=== PATIENT | male | born 1935 | race Caucasian/White ===

== ENCOUNTER 2020-02-07 15:46 | Emergency (ER) | payer MEDICARE, BC ==
[2020-02-07 16:27] VITALS: BP 172/72; PULSE 72
--- NOTE | 2020-02-07 16:27 | EDM.PDOC ---
ED HPI GENERAL MEDICAL PROBLEM - General Chief Complaint: Genitourinary Problem Stated Complaint: CATHETER ISSUES Time Seen by Provider: 02/07/20 16:03 Source of Information: Reports: Patient, RN Notes Reviewed History Limitations: Reports: No Limitations - History of Present Illness INITIAL COMMENTS - FREE TEXT/NARRATIVE: Patient is an 84-year-old male who presents to the ED for issues with his Khanna catheter. He had a circumcision done by Dr. Alejandra yesterday at [facility] in [place], [place], and was discharged with the Khanna catheter. Patient states he feels quite uncomfortable with it, and feels like he has to pee all the time. He thinks that is leaking a little bit by the penis, and states that he can feel some sort of "spasms". When he has the urge to go to the bathroom. He is not noticed any clots within the catheter or the leg bag, and he notes that he emptied the bag this morning, but only has had a small amount of urine since then. He has been given pain medications for which she is taking every 4 hours, states his last dose was around noon. There is a small amount of blood- tinged urine within the bag itself. He states that the head of the penis is very sore, and any time his underwear rubs against it, he has a lot of discomfort. Denies any fevers or chills, cough shortness of breath, nausea/vomiting/diarrhea. Penis Pain Score (Numeric/FACES): 4 - Related Data Allergies Allergy/AdvReac Type Severity Reaction Status Date / Time ZULY Inhibitors Allergy Cannot Verified 02/07/20 16:36 Remember lisinopril Allergy Cannot Verified 02/07/20 16:36 Remember simvastatin Allergy Cannot Verified 02/07/20 16:36 Remember Past Medical History HEENT History: Reports: Hard of Hearing, Impaired Vision Cardiovascular History: Reports: High Cholesterol, Hypertension Musculoskeletal History: Reports: Arthritis Endocrine/Metabolic History: Reports: Diabetes, Type II, Hypothyroidism Oncologic (Cancer) History: Reports: Bladder - Past Surgical History HEENT Surgical History: Reports: Cataract Surgery Male Surgical History: Reports: Circumcision (02/06/2020) Musculoskeletal Surgical History: Reports: Knee Replacement Other Musculoskeletal Surgeries/Procedures:: [facility] ED ROS GENERAL - Review of Systems Review Of Systems: Comprehensive ROS is negative, except as noted in HPI. ED EXAM, RENAL/ - Physical Exam Exam: See Below Exam Limited By: No Limitations General Appearance: Alert, WD/WN, No Apparent Distress Respiratory/Chest: No Respiratory Distress, Lungs Clear, Normal Breath Sounds, No Accessory Muscle Use, Chest Non-Tender Cardiovascular: Normal Peripheral Pulses, Regular Rate, Rhythm, No Murmur (Male) Exam: No Hernia, Circumcised, Other (penile tenderness on the head of the penis with light touch; catheter in place, no obvious drainage appreciated). No: Penile Lesions, Scrotum Tenderness (L), Scrotum Tenderness (R), Testicular Tenderness (L), Testicular Tenderness (R), Urethral Discharge Neurological: Alert, Oriented, Normal Cognition, No Motor/Sensory Deficits Psychiatric: Normal Affect, Normal Mood Skin Exam: Warm, Dry, Intact, Normal Color, No Rash Course - Vital Signs Last Recorded V/S: Last Vital Signs Temp 97.2 F 02/07/20 16:24 Pulse 72 02/07/20 16:24 Resp 20 02/07/20 16:24 BP 172/72 H 02/07/20 16:24 Pulse Ox 96 02/07/20 16:24 - Re-Assessments/Exams Free Text/Narrative Re-Assessment/Exam: 02/07/20 16:27 Patient presents to the ED for issues with his Khanna catheter. I will have nursing staff troubleshoot the catheter to make sure that can correct placement and irrigate it at this time. I do believe the patient is suffering from bladder spasms from what he is characterizing. Unsure of his medication list at this time, nursing was trying to call his pharmacy to get this. I am not sure if he is on any bladders antispasmodics. 02/07/20 16:53 Awaiting med list from his pharmacy, they state they are going to fax it for review. We will try to wrap the patient's penis with soft gauze material so it may take away from some of the irritation he is experiencing. Nurse states that the catheter was draining appropriately, she did get a little bit of urine back with it, but not a whole lot. Patient states that he has been trying to stay hydrated, but did not like the sensation of the leaking, so is not probably been drinking as much as he should. This might be the reason for the decreased urine output. Departure - Departure Time of Disposition: 16:54 Disposition: Home, Self-Care 01 Condition: Good Clinical Impression: Bladder spasms, Aftercare for circumcision Khanna catheter problem Qualifiers: Encounter type: initial encounter Qualified Code(s): T83.9XXA - Unspecified complication of genitourinary prosthetic device, implant and graft, initial encounter - Discharge Information *PRESCRIPTION DRUG MONITORING PROGRAM REVIEWED*: No *COPY OF PRESCRIPTION DRUG MONITORING REPORT IN PATIENT MICHELLE: No Instructions: Indwelling Urinary Catheter Care, Adult Referrals: Yimi Jimenes MD [Primary Care Provider] - Forms: ED Department Discharge Additional Instructions: You were evaluated in the ER today for your Khanna catheter issue. The nurse did troubleshoot your Khanna catheter, and was found to be in appropriate placement and is draining appropriately. Your penis was wrapped with a soft gauze to help provide a barrier to relieve some of the irritation you are experiencing. Please monitor the area for any signs of infection, like redness/swelling/pus like drainage. It is likely that you are experiencing some bladder spasms causing some mild leakage around the catheter and through the tip of the penis. If this bothers you, you may want to try wearing a depends to help absorb the leakage. Recommend you follow-up with your urologist at your next appointment for further evaluation and management. Please continue to take your pain medication as prescribed for pain relief, this is likely going to be tender and sore for the next few days. Highly recommend you take a stool softener like MiraLAX or Dulcolax to soften your bowels, as the pain medications can cause constipation. Please also try to increase your oral fluid intake. Please return to the ER at any time however if your symptoms change or worsen. Sepsis Event Note (ED) - Focused Exam Vital Signs: Vital Signs Temp Pulse Resp BP Pulse Ox 02/07/20 16:24 97.2 F 72 20 172/72 H 96
== END 2020-02-07 17:35 | disposition home or self-care (01) ==
LOC: JD.ED 15:46
DX: T83.091A Other mechanical complication of indwelling urethral catheter, initial encounter (principal); Z48.816 Encounter for surgical aftercare following surgery on the genitourinary system; I10 Essential (primary) hypertension; E11.9 Type 2 diabetes mellitus without complications; N32.89 Other specified disorders of bladder; Z88.8 Allergy status to other drugs, medicaments and biological substances
CPT/HCPCS: 99283

== ENCOUNTER 2020-03-06 22:52 | Emergency (ER) | payer MEDICARE, BC ==
[2020-03-06 23:06] VITALS: BP 123/67; PULSE 60
--- NOTE | 2020-03-07 00:25 | EDM.PDOC ---
ED HPI GENERAL MEDICAL PROBLEM - General Chief Complaint: Diabetic Complaint Stated Complaint: SKYLAR AMB Time Seen by Provider: 03/07/20 00:01 Source of Information: Reports: Patient, RN Notes Reviewed History Limitations: Reports: No Limitations - History of Present Illness INITIAL COMMENTS - FREE TEXT/NARRATIVE: Mr. Holly is a very pleasant 84-year-old gentleman who is now brought to the ED by EMS for hypoglycemia. He states that he took his usual 60 units of Lantus and 42 units of NovoLog around 17:30 this evening, then ate a few peaches for dinner, but nothing substantial. He was found by a nurse at [facility] to be hypoglycemic. EMS was called. They found his blood glucose to be 40. They had him drink some juice, but a subsequent blood glucose was 28, and a subsequent 1 was even lower, therefore he was given 1 amp of IV D50. A subsequent blood glucose was 157. In the ED, the patient is found to be hemodynamically stable, afebrile, saturating 98% on room air. An Accu-Chek at 23:11 was 67. The patient states that he has had an increased frequency of hypoglycemia over an undetermined amount of time. He states that he cannot predict when his blood glucose will go low. He states that he saw his PCP about 3 weeks ago, and that they discussed this, but that no changes to the patient's insulin were made. The patient states that he has had a poor appetite for about a month, and reports an approximately 40 pound weight loss over the past 2 months. No recent fever, cough, or dyspnea. The patient states that he was tested for the SARS-CoV-2 virus today, but has not yet been given the results. Other than the above symptoms, the patient denies having a recent fever, chills, sore throat, ear pain, nasal or sinus congestion, cough, dyspnea, chest pain, palpitations, nausea, vomiting, constipation, diarrhea, abdominal pain, urinary symptoms, recent bloody bowel movements or black bowel movements, recent joint aches, headaches, or rashes. The patient's PCP is Dr. Yimi Jimenes. His Drafter Detail is Dr. Ramesh Stoddard. His Urologist is Dr. Jovani Alejandra. Treatments ASSESSMENT SERVICES MANAGER: Reports: Food, Other (see below) Other Treatments ASSESSMENT SERVICES MANAGER: dextrose 50% - Related Data Allergies Allergy/AdvReac Type Severity Reaction Status Date / Time ZULY Inhibitors Allergy Cannot Verified 02/07/20 16:36 Remember lisinopril Allergy Cannot Verified 02/07/20 16:36 Remember simvastatin Allergy Cannot Verified 02/07/20 16:36 Remember Home Meds: Home Meds Aspirin 81 mg PO DAILY 02/07/20 [History] Colestipol [Colestipol HCl] 1 gm PO BID 02/07/20 [History] Empagliflozin [Jardiance] 25 mg PO DAILY 02/07/20 [History] Finasteride [Proscar] 5 mg PO DAILY 02/07/20 [History] Fluticasone Propionate [Flovent] 1 puff IH BID 02/07/20 [History] Furosemide [Lasix] 20 mg PO TID 02/07/20 [History] Glimepiride 4 mg PO DAILY 02/07/20 [History] Levothyroxine [Synthroid] 50 mcg PO ACBREAKFAST 02/07/20 [History] Metoprolol Tartrate [Lopressor] 50 mg PO Q12HR 02/07/20 [History] Niacin [Niaspan] 500 mg PO DAILY 02/07/20 [History] Omeprazole 20 mg PO DAILY 02/07/20 [History] Potassium Chloride 10 meq PO DAILY 02/07/20 [History] Tamsulosin HCl 0.8 mg PO DAILY 02/07/20 [History] Triamcinolone Acetonide [Triamcinolone Acetonide 0.5%] 0.5 percent TOP BID 02/07/20 [History] Valsartan 320 mg PO DAILY 02/07/20 [History] amLODIPine [Norvasc] 5 mg PO DAILY 02/07/20 [History] metFORMIN [Glucophage] 500 mg PO BIDMEALS 02/07/20 [History] Past Medical History HEENT History: Reports: Hard of Hearing, Impaired Vision Cardiovascular History: Reports: High Cholesterol, Hypertension Gastrointestinal History: Reports: GERD Genitourinary History: Reports: BPH, Chronic Renal Insuffiency, Retention, Urinary (chronic indwelling Khanna) Musculoskeletal History: Reports: Arthritis Endocrine/Metabolic History: Reports: Diabetes, Type II, Hypothyroidism, Obesity/BMI 30+ Oncologic (Cancer) History: Reports: Bladder - Past Surgical History HEENT Surgical History: Reports: Cataract Surgery Male Surgical History: Reports: Circumcision (02/06/2020), TURBT-Transurethral Resection of Bladder Tumor Musculoskeletal Surgical History: Reports: Carpal Tunnel (right), Knee Replacement (right) Social & Family History - Tobacco Use Smoking Status *Q: Never Smoker - Caffeine Use Caffeine Use: Reports: Soda, Tea - Alcohol Use Alcohol Use History: No - Recreational Drug Use Recreational Drug Use: No - Living Situation & Occupation Living situation: Reports: Single, Alone, Assisted Living ([facility]) Occupation: Retired ED ROS GENERAL - Review of Systems Review Of Systems: Comprehensive ROS is negative, except as noted in HPI. ED EXAM GENERAL NO PERIP PULSE - Physical Exam Exam: See Below Exam Limited By: No Limitations General Appearance: Alert, WD/WN, No Apparent Distress Eye Exam: Bilateral Eye: EOMI, Normal Inspection Ears: Normal External Exam, Hearing Grossly Normal Nose: Normal Inspection Throat/Mouth: Normal Inspection, Normal Lips, Normal Voice, No Airway Compromise Head: Atraumatic, Normocephalic Neck: Normal Inspection, Full Range of Motion Respiratory/Chest: No Respiratory Distress, Lungs Clear, Normal Breath Sounds, No Accessory Muscle Use Cardiovascular: Normal Peripheral Pulses, Regular Rate, Rhythm, No Gallop, No JVD, No Murmur, No Rub GI/Abdominal: Normal Bowel Sounds, Soft, Non-Tender, No Organomegaly, No Distention, No Abnormal Bruit, No Mass Back Exam: Normal Inspection, Full Range of Motion, NT Extremities: Normal Inspection, Normal Range of Motion, Normal Capillary Refill, Other (Bilateral leg hyperpigmentation consistent with chronic venous stasis changes, with 1+ pretibial edema bilaterally) Neurological: Alert, Oriented, Normal Cognition, No Motor/Sensory Deficits Psychiatric: Normal Affect Skin Exam: Warm, Dry, Intact, Normal Color, No Rash EKG INTERPRETATION EKG Date: 03/07/20 Time: 00:29 Rhythm: NSR Rate (Beats/Min): 62 [place]: Normal P-Wave: Present (1st degree AVB) QRS: Other (Late transition) ST-T: Normal QT: Normal Comparison: NA - No Prior EKG Course - Vital Signs Last Recorded V/S: Last Vital Signs Temp 36.1 C 03/06/20 22:56 Pulse 60 03/06/20 22:56 Resp 18 03/06/20 22:56 BP 123/67 03/06/20 22:56 Pulse Ox 98 03/06/20 22:56 - Orders/Labs/Meds Orders: Active Orders 24 hr Category Date Time Status EKG Documentation Completion [RC] STAT Care 03/07/20 00:21 Active Chest 1V Frontal [CR] Stat Exams 03/07/20 00:21 Taken CULTURE URINE [RM] Stat Lab 03/07/20 00:40 Results Labs: Laboratory Tests 03/06/20 03/07/20 03/07/20 Range/Units 23:11 00:59 00:59 WBC 7.04 (4.23-9.07) K/mm3 RBC 3.68 L (4.63-6.08) M/mm3 Hgb 10.7 L (13.7-17.5) gm/dl Hct 34.4 L (40.1-51.0) % MCV 93.5 H (79.0-92.2) fl MCH 29.1 (25.7-32.2) pg MCHC 31.1 L (32.2-35.5) g/dl RDW Std Deviation 43.4 (35.1-43.9) fL Plt Count 180 (163-337) K/mm3 MPV 9.9 (9.4-12.3) fl Neutrophils % (Manual) 68 H (40-60) % Band Neutrophils % 1 (0-10) % Lymphocytes % (Manual) 22 (20-40) % Atypical Lymphs % 0 % Monocytes % (Manual) 5 (2-10) % Eosinophils % (Manual) 2 (0.8-7.0) % Basophils % (Manual) 2 H (0.2-1.2) Platelet Estimate Adequate Plt Morphology Comment Normal Hypochromasia 1+ slight RBC Morph Comment Not Reportable Sodium 141 (136-145) mEq/L Potassium 3.1 L (3.5-5.1) mEq/L Chloride 102 (98-107) mEq/L Carbon Dioxide 27 (21-32) mEq/L Anion Gap 15.1 H (5-15) BUN 13 (7-18) mg/dL Creatinine 1.8 H (0.7-1.3) mg/dL Est Cr Clr Drug Dosing 28.06 mL/min Estimated GFR (MDRD) 36 (>60) mL/min BUN/Creatinine Ratio 7.2 L (14-18) Glucose 49 L (83-115) mg/dL POC Glucose 67 L (83-110) mg/dL Calcium 8.6 (8.5-10.1) mg/dL Magnesium 1.5 L (1.8-2.4) mg/dl Total Bilirubin 0.5 (0.2-1.0) mg/dL AST 17 (15-37) U/L ALT 17 (16-63) U/L Alkaline Phosphatase 94 (46-116) U/L Troponin I < 0.017 (0.00-0.056) ng/mL Total Protein 7.6 (6.4-8.2) g/dl Albumin 3.0 L (3.4-5.0) g/dl Globulin 4.6 gm/dL Albumin/Globulin Ratio 0.7 L (1-2) 03/07/20 03/07/20 03/07/20 Range/Units 01:55 03:07 04:10 WBC (4.23-9.07) K/mm3 RBC (4.63-6.08) M/mm3 Hgb (13.7-17.5) gm/dl Hct (40.1-51.0) % MCV (79.0-92.2) fl MCH (25.7-32.2) pg MCHC (32.2-35.5) g/dl RDW Std Deviation (35.1-43.9) fL Plt Count (163-337) K/mm3 MPV (9.4-12.3) fl Neutrophils % (Manual) (40-60) % Band Neutrophils % (0-10) % Lymphocytes % (Manual) (20-40) % Atypical Lymphs % % Monocytes % (Manual) (2-10) % Eosinophils % (Manual) (0.8-7.0) % Basophils % (Manual) (0.2-1.2) Platelet Estimate Plt Morphology Comment Hypochromasia RBC Morph Comment Sodium (136-145) mEq/L Potassium (3.5-5.1) mEq/L Chloride (98-107) mEq/L Carbon Dioxide (21-32) mEq/L Anion Gap (5-15) BUN (7-18) mg/dL Creatinine (0.7-1.3) mg/dL Est Cr Clr Drug Dosing mL/min Estimated GFR (MDRD) (>60) mL/min BUN/Creatinine Ratio (14-18) Glucose (83-115) mg/dL POC Glucose 78 L 70 L 59 L (83-110) mg/dL Calcium (8.5-10.1) mg/dL Magnesium (1.8-2.4) mg/dl Total Bilirubin (0.2-1.0) mg/dL AST (15-37) U/L ALT (16-63) U/L Alkaline Phosphatase (46-116) U/L Troponin I (0.00-0.056) ng/mL Total Protein (6.4-8.2) g/dl Albumin (3.4-5.0) g/dl Globulin gm/dL Albumin/Globulin Ratio (1-2) 03/07/20 03/07/20 03/07/20 Range/Units 05:05 06:20 07:29 WBC (4.23-9.07) K/mm3 RBC (4.63-6.08) M/mm3 Hgb (13.7-17.5) gm/dl Hct (40.1-51.0) % MCV (79.0-92.2) fl MCH (25.7-32.2) pg MCHC (32.2-35.5) g/dl RDW Std Deviation (35.1-43.9) fL Plt Count (163-337) K/mm3 MPV (9.4-12.3) fl Neutrophils % (Manual) (40-60) % Band Neutrophils % (0-10) % Lymphocytes % (Manual) (20-40) % Atypical Lymphs % % Monocytes % (Manual) (2-10) % Eosinophils % (Manual) (0.8-7.0) % Basophils % (Manual) (0.2-1.2) Platelet Estimate Plt Morphology Comment Hypochromasia RBC Morph Comment Sodium (136-145) mEq/L Potassium (3.5-5.1) mEq/L Chloride (98-107) mEq/L Carbon Dioxide (21-32) mEq/L Anion Gap (5-15) BUN (7-18) mg/dL Creatinine (0.7-1.3) mg/dL Est Cr Clr Drug Dosing mL/min Estimated GFR (MDRD) (>60) mL/min BUN/Creatinine Ratio (14-18) Glucose (83-115) mg/dL POC Glucose 52 L 80 L 62 L (83-110) mg/dL Calcium (8.5-10.1) mg/dL Magnesium (1.8-2.4) mg/dl Total Bilirubin (0.2-1.0) mg/dL AST (15-37) U/L ALT (16-63) U/L Alkaline Phosphatase (46-116) U/L Troponin I (0.00-0.056) ng/mL Total Protein (6.4-8.2) g/dl Albumin (3.4-5.0) g/dl Globulin gm/dL Albumin/Globulin Ratio (1-2) 03/07/20 03/07/20 03/07/20 Range/Units 08:38 09:41 10:25 WBC (4.23-9.07) K/mm3 RBC (4.63-6.08) M/mm3 Hgb (13.7-17.5) gm/dl Hct (40.1-51.0) % MCV (79.0-92.2) fl MCH (25.7-32.2) pg MCHC (32.2-35.5) g/dl RDW Std Deviation (35.1-43.9) fL Plt Count (163-337) K/mm3 MPV (9.4-12.3) fl Neutrophils % (Manual) (40-60) % Band Neutrophils % (0-10) % Lymphocytes % (Manual) (20-40) % Atypical Lymphs % % Monocytes % (Manual) (2-10) % Eosinophils % (Manual) (0.8-7.0) % Basophils % (Manual) (0.2-1.2) Platelet Estimate Plt Morphology Comment Hypochromasia RBC Morph Comment Sodium (136-145) mEq/L Potassium (3.5-5.1) mEq/L Chloride (98-107) mEq/L Carbon Dioxide (21-32) mEq/L Anion Gap (5-15) BUN (7-18) mg/dL Creatinine (0.7-1.3) mg/dL Est Cr Clr Drug Dosing mL/min Estimated GFR (MDRD) (>60) mL/min BUN/Creatinine Ratio (14-18) Glucose (83-115) mg/dL POC Glucose 88 85 145 H (83-110) mg/dL Calcium (8.5-10.1) mg/dL Magnesium (1.8-2.4) mg/dl Total Bilirubin (0.2-1.0) mg/dL AST (15-37) U/L ALT (16-63) U/L Alkaline Phosphatase (46-116) U/L Troponin I (0.00-0.056) ng/mL Total Protein (6.4-8.2) g/dl Albumin (3.4-5.0) g/dl Globulin gm/dL Albumin/Globulin Ratio (1-2) Meds: Medications Discontinued Medications Generic Name Dose Route Start Last Admin Trade Name Freq PRN Reason Stop Dose Admin Dextrose/Water 25 ml 03/07/20 05:07 03/07/20 05:11 Dextrose 50% In Water IVPUSH 03/07/20 05:08 25 ml ONETIME STA Administration Dextrose/Water Confirm 03/07/20 05:07 03/07/20 05:11 Dextrose 50% In Water Administered 03/07/20 05:08 Not Given Dose 50 ml .ROUTE .STK-MED ONE Magnesium Sulfate 2 gm in 50 mls @ 25 mls/hr 03/07/20 03:00 03/07/20 03:09 Magnesium Sulfate In Water Premix IV 03/07/20 04:59 25 mls/hr ONETIME ONE Administration Magnesium Sulfate 2 gm 03/07/20 01:57 03/07/20 03:10 Magnesium Sulfate In Water Premix IV 03/07/20 01:58 Not Given ONETIME STA Potassium Chloride 40 meq 03/07/20 04:54 03/07/20 05:11 Klor-Con M20 PO 03/07/20 04:55 40 meq ONETIME ONE Administration - Re-Assessments/Exams Free Text/Narrative Re-Assessment/Exam: 03/07/20 00:20 As above, the patient was found to be hypoglycemic, likely because of taking an excessive amount of insulin for the small amount that he ate for dinner. Here in the ED, his blood glucose was found to be 67, therefore he was given a meal. So far, he is eaten half of a turkey sandwich, most of a cup of peaches, and all of an apple juice cup. I encouraged him to finish his sandwich. We will keep an eye on his blood glucose, but in the meantime, I have ordered a work-up that includes blood work, a portable chest x-ray, and an ECG. Because the patient has a chronic indwelling Khanna, I have also ordered a urine culture, however, I have not ordered a urinalysis, as it would be uninterpretable due to the chronicity of his Khanna. 03/07/20 01:12 Portable chest radiograph appears to be grossly normal. The cardiac silhouette is within normal limits. No pulmonary vascular congestion. No pleural effusions seen on this AP view. No focal infiltrate. No pneumothorax. Formal read per the Radiologist pending. 03/07/20 02:00 The patient's CBC is remarkable for a H/H slightly depressed at 10.7/34.4, with the remainder of her CBC being unremarkable. His CMP is remarkable for potassium depressed at 3.1, and anion gap slightly elevated at 15.1, but with a bicarbonate normal at 27, and a Cr elevated at 1.8 with a BUN normal at 13, with the remainder of her CMP being unremarkable. His magnesium level is depressed at 1.5. His troponin is undetectably low. Most recent Accu-Chek is 78. Based on the above, I have ordered a 2 g Mg-rider. After it has finished infusing, the patient will be given oral KCl. 03/07/20 04:53 The patient's blood glucose was 59 at 04:10. He was given apple juice. His Mg-rider has infusing. I will order 40 mEq oral KCl. 03/07/20 05:08 Notified by Suly VALERO that the patient's blood glucose is down to 52. He is not interested in eating anything more. I for ordered a 1/2 Amp of D50. 03/07/20 09:50 The most recent Accu-Chek is 85. 03/07/20 10:59 The patient's Accu-Chek at 10:45 was 145. His blood glucoses appear to have stabilized. I will discharge the patient home. Departure - Departure Time of Disposition: 11:00 Disposition: Home, Self-Care 01 Condition: Good Clinical Impression: Insulin reaction, Hypokalemia, Hypomagnesemia, Chronic renal insufficiency - Discharge Information *PRESCRIPTION DRUG MONITORING PROGRAM REVIEWED*: Not Applicable *COPY OF PRESCRIPTION DRUG MONITORING REPORT IN PATIENT MICHELLE: Not Applicable Referrals: Yimi Jimenes MD [Physician] - Jovani Alejandra MD [Ordering Only Provider] - Ramesh Stoddard MD [Ordering Only Provider] - Forms: ED Department Discharge Additional Instructions: You were seen in the emergency room after suffering a low blood sugar. Work-up in the ER included blood work, a chest x-ray, and an ECG. Your work-up found your magnesium and potassium levels to be mildly depressed. You were given IV magnesium and oral replacement potassium in the ER. Your kidney function was found to be modestly impaired. The remainder of your work-up was unremarkable. You required supplemental sugar in the ER, but, over time, your blood sugars stabilized on their own. We recommend that you follow-up with your PCP, Dr. Yimi Jimenes, to discuss the option of reducing the amount of insulin that you take on a regular basis. In time, it is very important that you eat a full meal if you are taking a full regimen of insulin. If any other problems, please do not hesitate to return to the ER. Sepsis Event Note (ED) - Evaluation Sepsis Screening Result: No Definite Risk - My Orders Last 24 Hours: My Active Orders 03/07/20 00:21 EKG Documentation Completion [RC] STAT Chest 1V Frontal [CR] Stat 03/07/20 00:40 CULTURE URINE [RM] Stat - Assessment/Plan Last 24 Hours: My Active Orders 03/07/20 00:21 EKG Documentation Completion [RC] STAT Chest 1V Frontal [CR] Stat 03/07/20 00:40 CULTURE URINE [RM] Stat
[2020-03-07] MEDS: Magnesium Sulfate/Water 2 GM/50 ML Premix Bag IV STA ×2 (02:56→03:10)
[2020-03-07] MEDS ORDERED: Magnesium Sulfate/Water 2 GM/50 ML BAG IV ONE (03:00)
[2020-03-07] MEDS ORDERED: Potassium Chloride 20 MEQ Tab.ER PO ONE (04:54)
[2020-03-07] MEDS ORDERED: 50% Dextrose in Water 50 ML Syringe IVPUSH STA (05:07)
[2020-03-07] MEDS ORDERED: 50% Dextrose in Water 50 ML Syringe ONE (05:07)
--- NOTE | 2020-03-30 15:24 | CR ---
PROCEDURE INFORMATION: Exam: XR Chest, 1 View Exam date and time: 03/08/2020 4:39 PM Age: 84 years old Clinical indication: Fever; Patient HX: Under covid-19 precautions. TECHNIQUE: Imaging protocol: XR of the chest Views: 1 view. COMPARISON: CR Chest 1V Frontal 03/07/2020 12:23 AM FINDINGS: Lungs: No suspicious pulmonary nodules or areas of lung consolidation. Pleural space: Costophrenic angles are sharp. No pneumothorax. Heart/Mediastinum: Unremarkable. No cardiomegaly. 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 There is ageappropriate spondylosis of the spine. IMPRESSION: 1. No active disease of the chest. 2. No significant interval change when compared to the CR Chest 1V Frontal 03/07/2020 12:23 AM. Thank you for allowing us to participate in the care of your patient. Dictated and Authenticated by: Jordan Schilling MD 03/30/2020 4:08 PM Central Time ([place] & [place]) JIM
== END 2020-03-07 12:40 | disposition home or self-care (01) ==
LOC: JD.ED 22:52
DX: E11.649 Type 2 diabetes mellitus with hypoglycemia without coma (principal); E87.6 Hypokalemia; E83.42 Hypomagnesemia; I12.9 Hypertensive chronic kidney disease with stage 1 through stage 4 chronic kidney disease, or unspecified chronic kidney disease; N18.9 Chronic kidney disease, unspecified; E11.22 Type 2 diabetes mellitus with diabetic chronic kidney disease; E03.9 Hypothyroidism, unspecified; M19.90 Unspecified osteoarthritis, unspecified site; N40.0 Benign prostatic hyperplasia without lower urinary tract symptoms; E66.9 Obesity, unspecified; Z68.41 Body mass index [BMI] 40.0-44.9, adult; Z79.82 Long term (current) use of aspirin; Z79.84 Long term (current) use of oral hypoglycemic drugs; Z79.899 Other long term (current) drug therapy; Z88.8 Allergy status to other drugs, medicaments and biological substances; T38.3X5A Adverse effect of insulin and oral hypoglycemic [antidiabetic] drugs, initial encounter
CPT/HCPCS: 36415; 71045; 80053; 82962; 83735; 84484; 85007; 85027; 87086; 87088; 87186; 93005; 96365; 96375; 99285; A9270; J3475; 93010; 99284

== ENCOUNTER 2020-03-08 16:35 | Inpatient (IN) | payer MEDICARE, BC ==
[2020-03-08] MEDS ORDERED: Sodium Chloride 0.9% 10 ML Syringe FLUSH PRN (16:40)
[2020-03-08] MEDS ORDERED: Acetaminophen 325 MG Tab PO ONE (16:49)
[2020-03-08] MEDS ORDERED: Ondansetron 4 MG/2 ML SDV IVPUSH ONE (16:57)
--- NOTE | 2020-03-08 17:10 | EDM.PDOC ---
ED HPI GENERAL MEDICAL PROBLEM - General Chief Complaint: General Stated Complaint: [facility] Time Seen by Provider: 03/08/20 16:38 Source of Information: Reports: Patient History Limitations: Reports: No Limitations - History of Present Illness INITIAL COMMENTS - FREE TEXT/NARRATIVE: Patient is an 84-year-old male presenting to the emergency department via [facility] after sliding out of his recliner at home. He has been feeling increasingly weak today. He was found to have a fever of 102 upon EMS arrival. The verbalizes oxygen saturation was 90% on room air, therefore he was placed on a simple mask. Patient states that he has been more weak today but he did not "think that it was that bad ". He did have an episode of vomiting on the way to the emergency department and patient does state that he feels nauseous at this time. He denies any cough or shortness of breath. Denies any abdominal pain. He has a chronic indwelling Tang and states that he has been having burning in that area for the last few days. He denies any chest pain. Yesterday after hypoglycemic episodes. Blood work at that time was found to be overall normal. A urine culture was sent which on review has is growing out greater than 100,000 colony-forming units of gram-positive cocci. - Related Data Allergies Allergy/AdvReac Type Severity Reaction Status Date / Time ZULY Inhibitors Allergy Cannot Verified 03/08/20 16:48 Remember lisinopril Allergy Cannot Verified 03/08/20 16:48 Remember simvastatin Allergy Cannot Verified 03/08/20 16:48 Remember Home Meds: Home Meds Aspirin 81 mg PO DAILY 02/07/20 [History] Colestipol [Colestipol HCl] 1 gm PO BID 02/07/20 [History] Empagliflozin [Jardiance] 25 mg PO DAILY 02/07/20 [History] Finasteride [Proscar] 5 mg PO DAILY 02/07/20 [History] Furosemide [Lasix] 20 mg PO TID 02/07/20 [History] Glimepiride 4 mg PO DAILY 02/07/20 [History] Levothyroxine [Synthroid] 50 mcg PO ACBREAKFAST 02/07/20 [History] Metoprolol Tartrate [Lopressor] 50 mg PO BID 02/07/20 [History] Omeprazole 20 mg PO DAILY 02/07/20 [History] Potassium Chloride 10 meq PO DAILY 02/07/20 [History] Tamsulosin HCl 0.8 mg PO DAILY 02/07/20 [History] Triamcinolone Acetonide [Triamcinolone Acetonide 0.5%] 0.5 percent TOP BID 02/07/20 [History] Valsartan 320 mg PO DAILY 02/07/20 [History] amLODIPine [Norvasc] 5 mg PO DAILY 02/07/20 [History] metFORMIN [Glucophage] 500 mg PO BIDMEALS 02/07/20 [History] Cholecalciferol (Vitamin D3) [Vitamin D3] 1,000 unit PO DAILY 03/08/20 [History] Insulin Aspart [NovoLOG] 40 - 50 unit SQ BID 03/08/20 [History] Insulin Glarg,Human.Rec.Analog [Lantus] 40 units SQ BID 03/08/20 [History] Oxybutynin Chloride [Ditropan Xl] 10 mg PO DAILY 03/08/20 [History] Past Medical History HEENT History: Reports: Hard of Hearing, Impaired Vision Cardiovascular History: Reports: High Cholesterol, Hypertension Respiratory History: Reports: None Gastrointestinal History: Reports: GERD Genitourinary History: Reports: BPH, Chronic Renal Insuffiency, Retention, Urinary (chronic indwelling Tang) Musculoskeletal History: Reports: Arthritis Endocrine/Metabolic History: Reports: Diabetes, Type II, Hypothyroidism, Obesity/BMI 30+ Oncologic (Cancer) History: Reports: Bladder - Past Surgical History HEENT Surgical History: Reports: Cataract Surgery Male Surgical History: Reports: Circumcision (02/06/2020), TURBT-Transurethral Resection of Bladder Tumor Musculoskeletal Surgical History: Reports: Carpal Tunnel (right), Knee Replacement (right) Social & Family History - Tobacco Use Tobacco Use Status *Q: Never Tobacco User - Caffeine Use Caffeine Use: Reports: Tea - Recreational Drug Use Recreational Drug Use: No - Living Situation & Occupation Living situation: Reports: Single, Alone, Assisted Living ([facility]) Occupation: Retired ED ROS GENERAL - Review of Systems Review Of Systems: See Below Constitutional: Reports: Fever, Weakness, Fatigue, Decreased Appetite HEENT: Reports: No Symptoms Respiratory: Reports: No Symptoms. Denies: Shortness of Breath, Cough Cardiovascular: Reports: No Symptoms Endocrine: Reports: No Symptoms GI/Abdominal: Reports: Nausea, Vomiting. Denies: Abdominal Pain : Reports: Dysuria, Other (indwelling tang) Musculoskeletal: Reports: No Symptoms Skin: Reports: No Symptoms Neurological: Reports: No Symptoms Psychiatric: Reports: No Symptoms Hematologic/Lymphatic: Reports: No Symptoms Immunologic: Reports: No Symptoms ED EXAM, GENERAL - Physical Exam Exam: See Below Exam Limited By: No Limitations General Appearance: Alert, WD/WN, No Apparent Distress Respiratory/Chest: No Respiratory Distress, Lungs Clear, Normal Breath Sounds, No Accessory Muscle Use, Chest Non-Tender Cardiovascular: Normal Peripheral Pulses, Regular Rate, Rhythm, No Edema, No Gallop, No JVD, No Murmur, No Rub GI/Abdominal: Normal Bowel Sounds, Soft, Non-Tender, No Organomegaly, No Distention, No Abnormal Bruit, No Mass Neurological: Alert, Oriented, CN II-XII Intact, Normal Cognition, Normal Gait, Normal Reflexes, No Motor/Sensory Deficits Psychiatric: Normal Affect, Normal Mood Skin Exam: Warm, Dry, Intact, Normal Color, No Rash Course - Vital Signs Last Recorded V/S: Last Vital Signs Temp 97.9 F 03/12/20 09:17 Pulse 75 03/12/20 09:17 Resp 16 03/12/20 08:18 BP 143/65 H 03/12/20 09:17 Pulse Ox 94 L 03/12/20 09:17 - Orders/Labs/Meds Orders: Medication Orders Acetaminophen (Tylenol) 650 mg PO Q4H PRN PRN Reason: Fever Last Admin: 03/11/20 05:06 Dose: 650 mg Documented by: [id number] Dextrose/Water (Dextrose 50% In Water) 50 ml IVPUSH ASDIRECTED PRN PRN Reason: Hypoglycemia Finasteride (Proscar) 5 mg PO DAILY [facility] Last Admin: 03/12/20 09:09 Dose: 5 mg Documented by: Admin: 03/11/20 08:47 Dose: 5 mg Documented by: Admin: 03/10/20 10:12 Dose: 5 mg Documented by: JAMES Furosemide (Lasix) 20 mg PO TID [facility] Last Admin: 03/12/20 09:09 Dose: 20 mg Documented by: Admin: 03/11/20 21:47 Dose: 20 mg Documented by: Admin: 03/11/20 15:44 Dose: 20 mg Documented by: Admin: 03/11/20 08:47 Dose: 20 mg Documented by: Admin: 03/10/20 21:51 Dose: 20 mg Documented by: Admin: 03/10/20 14:48 Dose: 20 mg Documented by: Admin: 03/10/20 10:12 Dose: 20 mg Documented by: JAMES Potassium Chloride 10 meq/ (Premix) 100 mls @ 100 mls/hr IV Q1H [facility] Stop: 03/12/20 15:14 Last Admin: 03/12/20 13:39 Dose: 100 mls/hr Documented by: Infusion: 03/12/20 13:24 Dose: 100 mls/hr Documented by: Admin: 03/12/20 12:24 Dose: 100 mls/hr Documented by: JAMES Penicillin G Potassium 3 (millunits/ Sodium Chloride) 100 mls @ 66.667 mls/hr IV Q4H [facility] Last Admin: 03/12/20 12:24 Dose: 66.667 mls/hr Documented by: JAMES Magnesium Sulfate (Magnesium Sulfate In Water Premix) 2 gm in 50 mls @ 25 mls/hr IV ONETIME ONE Stop: 03/12/20 15:40 Insulin Human Lispro (Humalog) 0 unit SUBCUT QIDACANDBED [facility]; Protocol Last Admin: 03/12/20 12:23 Dose: 3 unit Documented by: Admin: 03/12/20 09:11 Dose: 1 unit Documented by: Admin: 03/11/20 21:37 Dose: 2 unit Documented by: Admin: 03/11/20 17:06 Dose: 2 unit Documented by: Admin: 03/11/20 11:48 Dose: 4 unit Documented by: Admin: 03/11/20 08:29 Dose: 1 unit Documented by: Admin: 03/10/20 21:56 Dose: 2 unit Documented by: Admin: 03/10/20 17:14 Dose: 1 unit Documented by: Admin: 03/10/20 12:06 Dose: 1 unit Documented by: Admin: 03/10/20 06:31 Dose: Not Given Documented by: Admin: 03/09/20 22:56 Dose: 1 unit Documented by: Admin: 03/09/20 18:22 Dose: 1 unit Documented by: JAMES Levothyroxine Sodium (Synthroid) 50 mcg PO ACBREAKFAST [facility] Admin: 03/12/20 07:04 Dose: 50 mcg Documented by: Admin: 03/11/20 05:06 Dose: 50 mcg Documented by: GISELA Metoprolol Tartrate (Lopressor) 50 mg PO BID [facility] Admin: 03/12/20 09:17 Dose: 50 mg Documented by: Admin: 03/11/20 21:47 Dose: 50 mg Documented by: Admin: 03/11/20 08:45 Dose: Not Given Documented by: Admin: 03/10/20 21:54 Dose: Not Given Documented by: Admin: 03/10/20 10:14 Dose: Not Given Documented by: JAMES Colestipol 1 Gm - Pt ('s Own Med) 0 gm PO BID [facility] Admin: 03/12/20 09:15 Dose: Not Given Documented by: Admin: 03/11/20 21:48 Dose: Not Given Documented by: Admin: 03/11/20 08:55 Dose: Not Given Documented by: Admin: 03/10/20 22:10 Dose: Not Given Documented by: Admin: 03/10/20 10:13 Dose: Not Given Documented by: JAMES Oxybutynin Chloride (Oxybutynin Er) 10 mg PO DAILY [facility] Admin: 03/12/20 09:09 Dose: 10 mg Documented by: Admin: 03/11/20 08:47 Dose: 10 mg Documented by: Admin: 03/10/20 10:12 Dose: 10 mg Documented by: JAMES Oxycodone HCl (Oxycodone) 5 mg PO Q4H PRN PRN Reason: Pain (moderate 4-6) Pantoprazole Sodium (Protonix) 40 mg PO DAILY@0700 [facility] Admin: 03/12/20 07:04 Dose: 40 mg Documented by: Admin: 03/11/20 08:28 Dose: 40 mg Documented by: Admin: 03/10/20 10:13 Dose: 40 mg Documented by: JAMES Potassium Chloride (Klor-Con 10) 10 meq PO DAILY [facility] Last Admin: 03/12/20 09:09 Dose: 10 meq Documented by: Admin: 03/11/20 08:47 Dose: 10 meq Documented by: Admin: 03/10/20 10:13 Dose: 10 meq Documented by: JAMES Potassium Chloride (Klor-Con M20) 40 meq PO ONETIME ONE Stop: 03/12/20 21:01 Sodium Chloride (Saline Flush) 10 ml FLUSH ASDIRECTED PRN PRN Reason: Keep Vein Open Last Admin: 03/08/20 16:49 Dose: 10 ml Documented by: TIFFANIE Tamsulosin HCl (Flomax) 0.8 mg PO DAILY [facility] Last Admin: 03/12/20 09:11 Dose: 0.8 mg Documented by: Admin: 03/11/20 08:47 Dose: 0.8 mg Documented by: Admin: 03/10/20 10:12 Dose: 0.8 mg Documented by: JAMES Temazepam (Restoril) 15 mg PO BEDTIME PRN PRN Reason: Sleep Labs: Laboratory Tests 03/08/20 03/08/20 03/08/20 Range/Units 16:35 16:45 16:45 WBC 7.74 (4.23-9.07) K/mm3 RBC 3.55 L (4.63-6.08) M/mm3 Hgb 10.4 L (13.7-17.5) gm/dl Hct 32.9 L (40.1-51.0) % MCV 92.7 H (79.0-92.2) fl MCH 29.3 (25.7-32.2) pg MCHC 31.6 L (32.2-35.5) g/dl RDW Std Deviation 43.3 (35.1-43.9) fL Plt Count 174 (163-337) K/mm3 MPV 9.9 (9.4-12.3) fl Neut % (Auto) 84.9 H (34.0-67.9) % Lymph % (Auto) 6.8 L (21.8-53.1) % Price % (Auto) 7.4 (5.3-12.2) % Eos % (Auto) 0.5 L (0.8-7.0) Baso % (Auto) 0.1 (0.1-1.2) % Neut # (Auto) 6.57 H (1.78-5.38) K/mm3 Lymph # (Auto) 0.53 L (1.32-3.57) K/mm3 Price # (Auto) 0.57 (0.30-0.82) K/mm3 Eos # (Auto) 0.04 (0.04-0.54) K/mm3 Baso # (Auto) 0.01 (0.01-0.08) K/mm3 Manual Slide Review Abnormal smear D-Dimer, Quantitative (0.19-0.50) mg/L Sodium 139 (136-145) mEq/L Potassium 3.6 (3.5-5.1) mEq/L Chloride 100 (98-107) mEq/L Carbon Dioxide 23 (21-32) mEq/L Anion Gap 19.6 H (5-15) BUN 21 H (7-18) mg/dL Creatinine 2.3 H (0.7-1.3) mg/dL Est Cr Clr Drug Dosing TNP Estimated GFR (MDRD) 27 (>60) mL/min BUN/Creatinine Ratio 9.1 L (14-18) Glucose 124 H (83-115) mg/dL Lactic Acid (0.4-2.0) mmol/L Calcium 8.7 (8.5-10.1) mg/dL Ferritin (26-388) ng/ml Total Bilirubin 0.9 (0.2-1.0) mg/dL AST 33 (15-37) U/L ALT 26 (16-63) U/L Alkaline Phosphatase 154 H (46-116) U/L Lactate Dehydrogenase 289 H (85-227) U/L Troponin I (0.00-0.056) ng/mL C-Reactive Protein 14.9 H* (<1.0) mg/dL Total Protein 7.8 (6.4-8.2) g/dl Albumin 3.2 L (3.4-5.0) g/dl Globulin 4.6 gm/dL Albumin/Globulin Ratio 0.7 L (1-2) Urine Color (Yellow) Urine Appearance (Clear) Urine pH (5.0-8.0) Ur Specific Hammond (1.005-1.030) Urine Protein (Negative) Urine Glucose (UA) (Negative) Urine Ketones (Negative) Urine Occult Blood (Negative) Urine Nitrite (Negative) Urine Bilirubin (Negative) Urine Urobilinogen (0.2-1.0) Ur Leukocyte Esterase (Negative) Urine RBC (0-5) /hpf Urine WBC (0-5) /hpf Ur Squamous Epith Cells (0-5) /hpf Urine Bacteria (FEW) /hpf Urine Mucus (FEW) /hpf SARS-CoV-2 RNA (VICKY) Negative (NEGATIVE) 03/08/20 03/08/20 03/08/20 Range/Units 16:45 16:45 16:45 WBC (4.23-9.07) K/mm3 RBC (4.63-6.08) M/mm3 Hgb (13.7-17.5) gm/dl Hct (40.1-51.0) % MCV (79.0-92.2) fl MCH (25.7-32.2) pg MCHC (32.2-35.5) g/dl RDW Std Deviation (35.1-43.9) fL Plt Count (163-337) K/mm3 MPV (9.4-12.3) fl Neut % (Auto) (34.0-67.9) % Lymph % (Auto) (21.8-53.1) % Price % (Auto) (5.3-12.2) % Eos % (Auto) (0.8-7.0) Baso % (Auto) (0.1-1.2) % Neut # (Auto) (1.78-5.38) K/mm3 Lymph # (Auto) (1.32-3.57) K/mm3 Price # (Auto) (0.30-0.82) K/mm3 Eos # (Auto) (0.04-0.54) K/mm3 Baso # (Auto) (0.01-0.08) K/mm3 Manual Slide Review D-Dimer, Quantitative > 35.20 H (0.19-0.50) mg/L Sodium (136-145) mEq/L Potassium (3.5-5.1) mEq/L Chloride (98-107) mEq/L Carbon Dioxide (21-32) mEq/L Anion Gap (5-15) BUN (7-18) mg/dL Creatinine (0.7-1.3) mg/dL Est Cr Clr Drug Dosing Estimated GFR (MDRD) (>60) mL/min BUN/Creatinine Ratio (14-18) Glucose (83-115) mg/dL Lactic Acid (0.4-2.0) mmol/L Calcium (8.5-10.1) mg/dL Ferritin 449 H (26-388) ng/ml Total Bilirubin (0.2-1.0) mg/dL AST (15-37) U/L ALT (16-63) U/L Alkaline Phosphatase (46-116) U/L Lactate Dehydrogenase (85-227) U/L Troponin I < 0.017 (0.00-0.056) ng/mL C-Reactive Protein (<1.0) mg/dL Total Protein (6.4-8.2) g/dl Albumin (3.4-5.0) g/dl Globulin gm/dL Albumin/Globulin Ratio (1-2) Urine Color (Yellow) Urine Appearance (Clear) Urine pH (5.0-8.0) Ur Specific Hammond (1.005-1.030) Urine Protein (Negative) Urine Glucose (UA) (Negative) Urine Ketones (Negative) Urine Occult Blood (Negative) Urine Nitrite (Negative) Urine Bilirubin (Negative) Urine Urobilinogen (0.2-1.0) Ur Leukocyte Esterase (Negative) Urine RBC (0-5) /hpf Urine WBC (0-5) /hpf Ur Squamous Epith Cells (0-5) /hpf Urine Bacteria (FEW) /hpf Urine Mucus (FEW) /hpf SARS-CoV-2 RNA (VICKY) (NEGATIVE) 03/08/20 03/08/20 Range/Units 17:10 17:45 WBC (4.23-9.07) K/mm3 RBC (4.63-6.08) M/mm3 Hgb (13.7-17.5) gm/dl Hct (40.1-51.0) % MCV (79.0-92.2) fl MCH (25.7-32.2) pg MCHC (32.2-35.5) g/dl RDW Std Deviation (35.1-43.9) fL Plt Count (163-337) K/mm3 MPV (9.4-12.3) fl Neut % (Auto) (34.0-67.9) % Lymph % (Auto) (21.8-53.1) % Price % (Auto) (5.3-12.2) % Eos % (Auto) (0.8-7.0) Baso % (Auto) (0.1-1.2) % Neut # (Auto) (1.78-5.38) K/mm3 Lymph # (Auto) (1.32-3.57) K/mm3 Price # (Auto) (0.30-0.82) K/mm3 Eos # (Auto) (0.04-0.54) K/mm3 Baso # (Auto) (0.01-0.08) K/mm3 Manual Slide Review D-Dimer, Quantitative (0.19-0.50) mg/L Sodium (136-145) mEq/L Potassium (3.5-5.1) mEq/L Chloride (98-107) mEq/L Carbon Dioxide (21-32) mEq/L Anion Gap (5-15) BUN (7-18) mg/dL Creatinine (0.7-1.3) mg/dL Est Cr Clr Drug Dosing Estimated GFR (MDRD) (>60) mL/min BUN/Creatinine Ratio (14-18) Glucose (83-115) mg/dL Lactic Acid 1.5 (0.4-2.0) mmol/L Calcium (8.5-10.1) mg/dL Ferritin (26-388) ng/ml Total Bilirubin (0.2-1.0) mg/dL AST (15-37) U/L ALT (16-63) U/L Alkaline Phosphatase (46-116) U/L Lactate Dehydrogenase (85-227) U/L Troponin I (0.00-0.056) ng/mL C-Reactive Protein (<1.0) mg/dL Total Protein (6.4-8.2) g/dl Albumin (3.4-5.0) g/dl Globulin gm/dL Albumin/Globulin Ratio (1-2) Urine Color Red H (Yellow) Urine Appearance Slt cloudy H (Clear) Urine pH 6.0 (5.0-8.0) Ur Specific Hammond 1.015 (1.005-1.030) Urine Protein 3+ H (Negative) Urine Glucose (UA) Negative (Negative) Urine Ketones Trace H (Negative) Urine Occult Blood 3+ H (Negative) Urine Nitrite Negative (Negative) Urine Bilirubin 2+ H (Negative) Urine Urobilinogen 1.0 (0.2-1.0) Ur Leukocyte Esterase 3+ H (Negative) Urine RBC Too numerous to cnt H (0-5) /hpf Urine WBC 10-20 H (0-5) /hpf Ur Squamous Epith Cells 0-5 (0-5) /hpf Urine Bacteria Moderate H (FEW) /hpf Urine Mucus Moderate H (FEW) /hpf SARS-CoV-2 RNA (VICKY) (NEGATIVE) Meds: Medications Generic Name Dose Route Start Last Admin Trade Name Freq PRN Reason Stop Dose Admin Acetaminophen 650 mg 03/08/20 22:24 03/11/20 05:06 Tylenol PO 650 mg Q4H PRN Administration Fever Dextrose/Water 50 ml 03/09/20 14:05 Dextrose 50% In Water IVPUSH ASDIRECTED PRN Hypoglycemia Finasteride 5 mg 03/10/20 09:00 03/12/20 09:09 Proscar PO 5 mg DAILY SHELL Administration Furosemide 20 mg 03/10/20 09:00 03/12/20 09:09 Lasix PO 20 mg TID SHELL Administration Potassium Chloride 10 meq/ 100 mls @ 100 mls/hr 03/12/20 11:15 03/12/20 13:39 Premix IV 03/12/20 15:14 100 mls/hr Q1H [facility] Administration Penicillin G Potassium 3 100 mls @ 66.667 mls/hr 03/12/20 12:00 03/12/20 12:24 millunits/ Sodium Chloride IV 66.667 mls/hr Q4H [facility] Administration Magnesium Sulfate 2 gm in 50 mls @ 25 mls/hr 03/12/20 13:41 Magnesium Sulfate In Water Premix IV 03/12/20 15:40 ONETIME ONE Insulin Human Lispro 0 unit 03/09/20 17:00 03/12/20 12:23 Humalog SUBCUT 3 unit QIDACANDBED [facility] Administration Protocol Levothyroxine Sodium 50 mcg 03/11/20 06:00 03/12/20 07:04 Synthroid PO 50 mcg ACBREAKFAST [facility] Administration Metoprolol Tartrate 50 mg 03/10/20 09:00 03/12/20 09:17 Lopressor PO 50 mg BID [facility] Administration Colestipol 1 Gm - Pt 0 gm 03/10/20 09:00 03/12/20 09:15 's Own Med PO Not Given BID SHE[facility] Oxybutynin Chloride 10 mg 03/10/20 09:00 03/12/20 09:09 Oxybutynin Er PO 10 mg DAILY [facility] Administration Oxycodone HCl 5 mg 03/09/20 11:44 Oxycodone PO Q4H PRN Pain (moderate 4-6) Pantoprazole Sodium 40 mg 03/10/20 08:30 03/12/20 07:04 Protonix PO 40 mg DAILY@0700 [facility] Administration Potassium Chloride 10 meq 03/10/20 09:00 03/12/20 09:09 Klor-Con 10 PO 10 meq DAILY [facility] Administration Potassium Chloride 40 meq 03/12/20 21:00 Klor-Con M20 PO 03/12/20 21:01 ONETIME ONE Sodium Chloride 10 ml 03/08/20 16:40 03/08/20 16:49 Saline Flush FLUSH 10 ml ASDIRECTED PRN Administration Keep Vein Open Tamsulosin HCl 0.8 mg 03/10/20 09:00 03/12/20 09:11 Flomax PO 0.8 mg DAILY [facility] Administration Temazepam 15 mg 03/09/20 11:44 Restoril PO BEDTIME PRN Sleep Discontinued Medications Generic Name Dose Route Start Last Admin Trade Name Freq PRN Reason Stop Dose Admin Acetaminophen 975 mg 03/08/20 16:49 03/08/20 17:31 Tylenol PO 03/08/20 16:50 975 mg NOW ONE Administration Calcium Gluconate 1 gm 03/10/20 09:50 03/10/20 10:14 Calcium Gluconate IVPUSH 03/10/20 09:51 1 gm ONETIME ONE Administration Sodium Chloride 1,000 mls @ 999 mls/hr 03/08/20 17:34 03/08/20 18:43 Normal Saline IV 03/08/20 18:34 150 mls/hr NOW STA Infusion Ceftriaxone Sodium 2 gm/ 100 mls @ 200 mls/hr 03/08/20 18:45 03/09/20 18:22 Sodium Chloride IV 200 mls/hr Q24H [facility] Administration Sodium Chloride 100 mls @ 4 mls/sec 03/08/20 19:42 Normal Saline IV 03/08/20 19:43 ONETIME ONE Sodium Chloride 1,000 mls @ 150 mls/hr 03/08/20 22:30 03/09/20 11:13 Normal Saline IV 150 mls/hr ASDIRECTED [facility] Administration Sodium Chloride 1,000 mls @ 125 mls/hr 03/09/20 11:45 03/12/20 07:03 Normal Saline IV 125 mls/hr ASDIRECTED [facility] Administration Linezolid 600 mg/ Premix 300 mls @ 300 mls/hr 03/10/20 09:45 03/12/20 09:08 IV 300 mls/hr Q12H [facility] Administration Magnesium Sulfate 2 gm in 50 mls @ 25 mls/hr 03/10/20 09:48 03/10/20 10:21 Magnesium Sulfate In Water Premix IV 03/10/20 11:47 25 mls/hr ONETIME ONE Administration Magnesium Sulfate 2 gm in 50 mls @ 25 mls/hr 03/11/20 11:09 03/11/20 11:53 Magnesium Sulfate In Water Premix IV 03/11/20 13:08 25 mls/hr ONETIME ONE Administration Iopamidol 100 ml 03/08/20 19:42 03/08/20 19:43 Isovue-370 (76%) IVPUSH 03/08/20 19:43 100 ml ONETIME ONE Administration Magnesium Hydroxide 30 ml 03/10/20 06:00 03/10/20 06:30 Milk Of Magnesia PO 03/10/20 06:01 30 ml ONETIME ONE Administration Ondansetron HCl 4 mg 03/08/20 16:57 03/08/20 17:30 Zofran IVPUSH 03/08/20 16:58 4 mg ONETIME ONE Administration Potassium Chloride 20 meq 03/11/20 11:09 03/11/20 11:50 Klor-Con M20 PO 03/11/20 11:10 20 meq ONETIME ONE Administration - Re-Assessments/Exams Free Text/Narrative Re-Assessment/Exam: She has an 84-year-old female presenting to the emergency department from [facility] living after sliding out of his easy chair. EMS report that he had a temperature of approximate 102. He has had increased weakness today as well. Patient had episode of vomiting on his way to the ER. Time of my exam, he states that he feels "pretty good "but that he does feel nauseous. He also states he is been feeling more weak today but "did not think it was that bad ". Patient was seen in this emergency department yesterday for hypoglycemia. At that time a urine culture was sent resulting in a preliminary result of gram- positive cocci with greater than 100,000 colony-forming units. Patient denies any cough or shortness of breath. Oxygen saturation was 90% upon EMS arrival. He was 91% on room air on triage. Temperature in triage was 102.9. I have ordered a complete septic work-up including a CBC, CMP, CRP, lactic acid, blood cultures x2, LDH, ferritin, urinalysis, coronavirus test, Tang catheter change with culture of the catheter tip as well as urinalysis. And a chest x-ray. I have ordered Zofran 4 mg IV as well as Tylenol 975 mg p.o. We will hold off on IV fluids until chemistry results are available. 03/08/20 1735 Hematology available thus far was significant for a hemoglobin slightly low at 10.4, and gap 19.6, BUN 21, creatinine 2.3, glucose 124, CRP 14.9. MARYLU Whiteside reports that when she changed the Tang catheter and reinserted the new catheter, approximately 2 L of blood-tinged urine drained from the catheter indicating that the previous Tang catheter was either obstructed or displaced into the urethra. Urinalysis results are still pending. I have ordered a 500 mill bolus of normal saline followed by normal saline at 150 mils per hour. 03/08/20 19:21 Further hematology results were abnormal showing a d-dimer of greater than 35.20, ferritin 449, LDH 289. Urinalysis was significant for 2+ protein, trace ketones, 3+ occult blood, 2+ bili, 3+ leukocyte esterase, RBCs too numerous to count, WBCs 10-20, moderate bacteria. While patient's laboratory findings and clinical presentation are highly suspicious for a Covid19 infection, his COVID test was negative.. I have ordered a CT angiogram of the chest given his elevated d-dimer. If this is negative for PE, I will consider ultrasound of the bilateral lower extremities. She is currently on 2 L of oxygen satting in the mid 90s. Nursing reports that he was 88% on room air prior to the initiation of supplemental O2. 03/08/20 20:39 CT angiogram of the chest was negative for any pulmonary emboli or other abnormalities. We attempted to wean patient's oxygen down, however he remained 87% on room air. He is currently on 2 L of oxygen via nasal cannula saturating in the mid 90s. On review of patient's medical history, he does have a history of bladder cancer which he states was treated, he however he is not sure if it ever was cured. It is possible that his elevated d-dimer is related to an underlying malignancy or Covid19 infection, nonetheless I have ordered a venous Doppler ultrasound of bilateral lower extremities to rule out DVT. I did call and speak with the hospitalist on-call, Dr. Dozier. He has accepted the patient for admission for urinary tract infection and hypoxia. He gave verbal bridge orders including the telemetry monitoring, Tylenol 650 mg every 4 hours as needed for fever, IV fluids of NS at 150 mils per hour, diet as tolerated, activity as tolerated. I discussed patient's CODE STATUS with the patient. He verbalized that he does not want CPR or intubation if that time should come. MARYLU Napoles called and spoke with the patient's power of finance attorney who is a sister, Brandee. She was unsure of his CODE STATUS, however she had stated she thinks that he was a DNR. She is going to bring up his advanced directives paperwork tomorrow. Since patient is competent, alert, oriented, and has displayed no confusion throughout his stay in the ER, we will proceed with CODE STATUS of DNR unless told otherwise. Patient will be allowed to be admitted to the floor regardless of if if the ultrasound has been completed. engineering technician and also complete to the test on the medical surgical floor. Departure - Departure Time of Disposition: 20:54 Disposition: Admitted As Inpatient 67 Condition: Fair Clinical Impression: UTI, Urinary tract infectious disease, Febrile illness, Hypoxia - Discharge Information Sepsis Event Note (ED) - Evaluation Sepsis Screening Result: Possible Sepsis Risk EKG INTERPRETATION EKG Date: 03/08/20 Time: 17:32 Rhythm: NSR Rate (Beats/Min): 103 [place]: Normal P-Wave: Present QRS: Normal ST-T: Normal QT: Normal
[2020-03-08] MEDS ORDERED: Sodium Chloride 0.9% 1,000 ML IV STA (17:34)
[2020-03-08] MEDS: cefTRIAXone 2 GM in Sodium Chloride 0.9% 100 ML IV SCH (18:53)
[2020-03-08] MEDS ORDERED: Sodium Chloride 0.9% 100 ML IV ONE (19:42)
[2020-03-08] MEDS ORDERED: Iopamidol 755 Mg/ML 100 ML Bottle IVPUSH ONE (19:42)
[2020-03-09] MEDS: Sodium Chloride 0.9% 1,000 ML IV SCH ×4 (03:50→20:05)
--- NOTE | 2020-03-09 06:51 | PCM.HP.2 ---
H&P History of Present Illness - General Date of Service: 03/09/20 Admit Problem/Dx: Admission Diagnosis/Problem Admission Diagnosis/Problem Urinary tract infection Source of Information: EMS Notes Reviewed. No: Family History Limitations: Reports: Altered Mental Status - History of Present Illness Initial Comments - Free Text/Narative: The patient is an 84-year-old gentleman who had presented to the emergency department yesterday after sliding out of his recliner at home. The patient had been feeling increasingly weak. He was found to have a fever of 102 in the [facility]. Patient said that he has been having difficulty since he had a chronic indwelling Tang catheter placed in January. 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 The patient himself is a poor historian and information has been taken from his chart. The patient does not recall having any surgery. Patient also lives by himself in an assisted living center. COVID-19 testing through the emergency department was negative. The patient was also admitted secondary to urinary tract infection. The patient had been admitted as an inpatient. Onset of Symptoms: Reports: Gradual, Unknown/Unsure Duration of Symptoms: Reports: Day(s):, Getting Worse Location: Reports: Generalized Quality: Reports: Burning, Stabbing Severity: Moderate Improves with: Reports: None Worsens with: Reports: None Context: Reports: Other (Recent circumcision) - Related Data Allergies/Adverse Reactions: Allergies Allergy/AdvReac Type Severity Reaction Status Date / Time ZULY Inhibitors Allergy Cannot Verified 03/08/20 16:48 Remember lisinopril Allergy Cannot Verified 03/08/20 16:48 Remember simvastatin Allergy Cannot Verified 03/08/20 16:48 Remember Home Medications: Home Meds Aspirin 81 mg PO DAILY 02/07/20 [History] Colestipol [Colestipol HCl] 1 gm PO BID 02/07/20 [History] Empagliflozin [Jardiance] 25 mg PO DAILY 02/07/20 [History] Finasteride [Proscar] 5 mg PO DAILY 02/07/20 [History] Furosemide [Lasix] 20 mg PO TID 02/07/20 [History] Glimepiride 4 mg PO DAILY 02/07/20 [History] Levothyroxine [Synthroid] 50 mcg PO ACBREAKFAST 02/07/20 [History] Metoprolol Tartrate [Lopressor] 50 mg PO BID 02/07/20 [History] Omeprazole 20 mg PO DAILY 02/07/20 [History] Potassium Chloride 10 meq PO DAILY 02/07/20 [History] Tamsulosin HCl 0.8 mg PO DAILY 02/07/20 [History] Triamcinolone Acetonide [Triamcinolone Acetonide 0.5%] 0.5 percent TOP BID 02/07/20 [History] Valsartan 320 mg PO DAILY 02/07/20 [History] amLODIPine [Norvasc] 5 mg PO DAILY 02/07/20 [History] metFORMIN [Glucophage] 500 mg PO BIDMEALS 02/07/20 [History] Cholecalciferol (Vitamin D3) [Vitamin D3] 1,000 unit PO DAILY 03/08/20 [History] Insulin Aspart [NovoLOG] 40 - 50 unit SQ BID 03/08/20 [History] Insulin Glarg,Human.Rec.Analog [Lantus] 40 units SQ BID 03/08/20 [History] Oxybutynin Chloride [Ditropan Xl] 10 mg PO DAILY 03/08/20 [History] Past Medical History HEENT History: Reports: Hard of Hearing, Impaired Vision Other HEENT History: Glasses - not here. 1 hearing aid to right ear. [facility] one [facility] a week ago. Cardiovascular History: Reports: High Cholesterol, Hypertension Respiratory History: Reports: None Gastrointestinal History: Reports: GERD Genitourinary History: Reports: BPH, Chronic Renal Insuffiency, Retention, Urinary Musculoskeletal History: Reports: Arthritis Neurological History: Reports: None Endocrine/Metabolic History: Reports: Diabetes, Type II, Hypothyroidism, Obesity/BMI 30+ Oncologic (Cancer) History: Reports: Bladder - Past Surgical History HEENT Surgical History: Reports: Cataract Surgery Male Surgical History: Reports: Circumcision, TURBT-Transurethral Resection of Bladder Tumor Other Male Surgeries/Procedures: chronic Tang catheter - has had it a little over a month. Never circumcised - circumcised about a month ago due to decrease stream from foreskin growth. Unable to void due to urinary retention. Saw a urologist who has now stated that he will have his tang catheter forever. Musculoskeletal Surgical History: Reports: Carpal Tunnel, Knee Replacement Social & Family History - Family History Family Medical History: Noncontributory - Tobacco Use Smoking Status *Q: Never Smoker - Caffeine Use Caffeine Use: Reports: Tea - Recreational Drug Use Recreational Drug Use: No - Living Situation & Occupation Living situation: Reports: Single, Alone, Assisted Living ([facility]) Occupation: Retired H&P Review of Systems - Review of Systems: Review Of Systems: Unable To Obtain Reason Not Obtained: Poor historian Exam - Exam Exam: See Below - Vital Signs Vital Signs: Last Vital Signs Temp 37.8 C 03/08/20 21:58 Pulse 87 03/08/20 21:58 Resp 16 03/08/20 21:58 BP 124/62 03/08/20 21:58 Pulse Ox 96 03/08/20 22:18 Weight: 116.483 kg - Exam Quality Assessment: Supplemental Oxygen General: Alert, Oriented, Lethargic HEENT: Conjunctiva Clear, EACs Clear. No: Mucosa Moist & [place] (Dry) Neck: Supple, Trachea Midline Lungs: Clear to Auscultation, Decreased Breath Sounds Cardiovascular: Regular Rate, Irregular Rhythm GI/Abdominal Exam: Normal Bowel Sounds, Soft, Non-Tender, No Distention (Male) Exam: Circumcised, Other (Chronic indwelling catheter.) Rectal (Males) Exam: Deferred Back Exam: Normal Inspection. No: Full Range of Motion (Age-appropriate) Extremities: Normal Inspection, No Pedal Edema Skin: Warm, Dry, Intact Neurological: Cranial Nerves Intact Neuro Extensive - Mental Status: Alert. No: Oriented x3 Psychiatric: Alert, Normal Affect - Patient Data Lab Results Last 24 hrs: Laboratory Results - last 24 hr 03/08/20 03/08/20 03/08/20 Range/Units 16:35 16:45 16:45 WBC 7.74 (4.23-9.07) K/mm3 RBC 3.55 L (4.63-6.08) M/mm3 Hgb 10.4 L (13.7-17.5) gm/dl Hct 32.9 L (40.1-51.0) % MCV 92.7 H (79.0-92.2) fl MCH 29.3 (25.7-32.2) pg MCHC 31.6 L (32.2-35.5) g/dl RDW Std Deviation 43.3 (35.1-43.9) fL Plt Count 174 (163-337) K/mm3 MPV 9.9 (9.4-12.3) fl Neut % (Auto) 84.9 H (34.0-67.9) % Lymph % (Auto) 6.8 L (21.8-53.1) % [place] % (Auto) 7.4 (5.3-12.2) % Eos % (Auto) 0.5 L (0.8-7.0) Baso % (Auto) 0.1 (0.1-1.2) % Neut # (Auto) 6.57 H (1.78-5.38) K/mm3 Lymph # (Auto) 0.53 L (1.32-3.57) K/mm3 [place] # (Auto) 0.57 (0.30-0.82) K/mm3 Eos # (Auto) 0.04 (0.04-0.54) K/mm3 Baso # (Auto) 0.01 (0.01-0.08) K/mm3 Manual Slide Review Abnormal smear D-Dimer, Quantitative (0.19-0.50) mg/L Sodium 139 (136-145) mEq/L Potassium 3.6 (3.5-5.1) mEq/L Chloride 100 (98-107) mEq/L Carbon Dioxide 23 (21-32) mEq/L Anion Gap 19.6 H (5-15) BUN 21 H (7-18) mg/dL Creatinine 2.3 H (0.7-1.3) mg/dL Est Cr Clr Drug Dosing TNP Estimated GFR (MDRD) 27 (>60) mL/min BUN/Creatinine Ratio 9.1 L (14-18) Glucose 124 H (83-115) mg/dL POC Glucose (83-110) mg/dL Lactic Acid (0.4-2.0) mmol/L Calcium 8.7 (8.5-10.1) mg/dL Ferritin (26-388) ng/ml Total Bilirubin 0.9 (0.2-1.0) mg/dL AST 33 (15-37) U/L ALT 26 (16-63) U/L Alkaline Phosphatase 154 H (46-116) U/L Lactate Dehydrogenase 289 H (85-227) U/L Troponin I (0.00-0.056) ng/mL C-Reactive Protein 14.9 H* (<1.0) mg/dL Total Protein 7.8 (6.4-8.2) g/dl Albumin 3.2 L (3.4-5.0) g/dl Globulin 4.6 gm/dL Albumin/Globulin Ratio 0.7 L (1-2) Urine Color (Yellow) Urine Appearance (Clear) Urine pH (5.0-8.0) Ur Specific [place] (1.005-1.030) Urine Protein (Negative) Urine Glucose (UA) (Negative) Urine Ketones (Negative) Urine Occult Blood (Negative) Urine Nitrite (Negative) Urine Bilirubin (Negative) Urine Urobilinogen (0.2-1.0) Ur Leukocyte Esterase (Negative) Urine RBC (0-5) /hpf Urine WBC (0-5) /hpf Ur Squamous Epith Cells (0-5) /hpf Urine Bacteria (FEW) /hpf Urine Mucus (FEW) /hpf SARS-CoV-2 RNA (VICKY) Negative (NEGATIVE) MRSA (PCR) 03/08/20 03/08/20 03/08/20 Range/Units 16:45 16:45 16:45 WBC (4.23-9.07) K/mm3 RBC (4.63-6.08) M/mm3 Hgb (13.7-17.5) gm/dl Hct (40.1-51.0) % MCV (79.0-92.2) fl MCH (25.7-32.2) pg MCHC (32.2-35.5) g/dl RDW Std Deviation (35.1-43.9) fL Plt Count (163-337) K/mm3 MPV (9.4-12.3) fl Neut % (Auto) (34.0-67.9) % Lymph % (Auto) (21.8-53.1) % [place] % (Auto) (5.3-12.2) % Eos % (Auto) (0.8-7.0) Baso % (Auto) (0.1-1.2) % Neut # (Auto) (1.78-5.38) K/mm3 Lymph # (Auto) (1.32-3.57) K/mm3 [place] # (Auto) (0.30-0.82) K/mm3 Eos # (Auto) (0.04-0.54) K/mm3 Baso # (Auto) (0.01-0.08) K/mm3 Manual Slide Review D-Dimer, Quantitative > 35.20 H (0.19-0.50) mg/L Sodium (136-145) mEq/L Potassium (3.5-5.1) mEq/L Chloride (98-107) mEq/L Carbon Dioxide (21-32) mEq/L Anion Gap (5-15) BUN (7-18) mg/dL Creatinine (0.7-1.3) mg/dL Est Cr Clr Drug Dosing Estimated GFR (MDRD) (>60) mL/min BUN/Creatinine Ratio (14-18) Glucose (83-115) mg/dL POC Glucose (83-110) mg/dL Lactic Acid (0.4-2.0) mmol/L Calcium (8.5-10.1) mg/dL Ferritin 449 H (26-388) ng/ml Total Bilirubin (0.2-1.0) mg/dL AST (15-37) U/L ALT (16-63) U/L Alkaline Phosphatase (46-116) U/L Lactate Dehydrogenase (85-227) U/L Troponin I < 0.017 (0.00-0.056) ng/mL C-Reactive Protein (<1.0) mg/dL Total Protein (6.4-8.2) g/dl Albumin (3.4-5.0) g/dl Globulin gm/dL Albumin/Globulin Ratio (1-2) Urine Color (Yellow) Urine Appearance (Clear) Urine pH (5.0-8.0) Ur Specific [place] (1.005-1.030) Urine Protein (Negative) Urine Glucose (UA) (Negative) Urine Ketones (Negative) Urine Occult Blood (Negative) Urine Nitrite (Negative) Urine Bilirubin (Negative) Urine Urobilinogen (0.2-1.0) Ur Leukocyte Esterase (Negative) Urine RBC (0-5) /hpf Urine WBC (0-5) /hpf Ur Squamous Epith Cells (0-5) /hpf Urine Bacteria (FEW) /hpf Urine Mucus (FEW) /hpf SARS-CoV-2 RNA (VICKY) (NEGATIVE) MRSA (PCR) 03/08/20 03/08/20 03/09/20 Range/Units 17:10 17:45 03:45 WBC (4.23-9.07) K/mm3 RBC (4.63-6.08) M/mm3 Hgb (13.7-17.5) gm/dl Hct (40.1-51.0) % MCV (79.0-92.2) fl MCH (25.7-32.2) pg MCHC (32.2-35.5) g/dl RDW Std Deviation (35.1-43.9) fL Plt Count (163-337) K/mm3 MPV (9.4-12.3) fl Neut % (Auto) (34.0-67.9) % Lymph % (Auto) (21.8-53.1) % [place] % (Auto) (5.3-12.2) % Eos % (Auto) (0.8-7.0) Baso % (Auto) (0.1-1.2) % Neut # (Auto) (1.78-5.38) K/mm3 Lymph # (Auto) (1.32-3.57) K/mm3 [place] # (Auto) (0.30-0.82) K/mm3 Eos # (Auto) (0.04-0.54) K/mm3 Baso # (Auto) (0.01-0.08) K/mm3 Manual Slide Review D-Dimer, Quantitative (0.19-0.50) mg/L Sodium (136-145) mEq/L Potassium (3.5-5.1) mEq/L Chloride (98-107) mEq/L Carbon Dioxide (21-32) mEq/L Anion Gap (5-15) BUN (7-18) mg/dL Creatinine (0.7-1.3) mg/dL Est Cr Clr Drug Dosing Estimated GFR (MDRD) (>60) mL/min BUN/Creatinine Ratio (14-18) Glucose (83-115) mg/dL POC Glucose (83-110) mg/dL Lactic Acid 1.5 (0.4-2.0) mmol/L Calcium (8.5-10.1) mg/dL Ferritin (26-388) ng/ml Total Bilirubin (0.2-1.0) mg/dL AST (15-37) U/L ALT (16-63) U/L Alkaline Phosphatase (46-116) U/L Lactate Dehydrogenase (85-227) U/L Troponin I (0.00-0.056) ng/mL C-Reactive Protein (<1.0) mg/dL Total Protein (6.4-8.2) g/dl Albumin (3.4-5.0) g/dl Globulin gm/dL Albumin/Globulin Ratio (1-2) Urine Color Red H (Yellow) Urine Appearance Slt cloudy H (Clear) Urine pH 6.0 (5.0-8.0) Ur Specific [place] 1.015 (1.005-1.030) Urine Protein 3+ H (Negative) Urine Glucose (UA) Negative (Negative) Urine Ketones Trace H (Negative) Urine Occult Blood 3+ H (Negative) Urine Nitrite Negative (Negative) Urine Bilirubin 2+ H (Negative) Urine Urobilinogen 1.0 (0.2-1.0) Ur Leukocyte Esterase 3+ H (Negative) Urine RBC Too numerous to cnt H (0-5) /hpf Urine WBC 10-20 H (0-5) /hpf Ur Squamous Epith Cells 0-5 (0-5) /hpf Urine Bacteria Moderate H (FEW) /hpf Urine Mucus Moderate H (FEW) /hpf SARS-CoV-2 RNA (VICKY) (NEGATIVE) MRSA (PCR) Negative 03/09/20 Range/Units 06:17 WBC (4.23-9.07) K/mm3 RBC (4.63-6.08) M/mm3 Hgb (13.7-17.5) gm/dl Hct (40.1-51.0) % MCV (79.0-92.2) fl MCH (25.7-32.2) pg MCHC (32.2-35.5) g/dl RDW Std Deviation (35.1-43.9) fL Plt Count (163-337) K/mm3 MPV (9.4-12.3) fl Neut % (Auto) (34.0-67.9) % Lymph % (Auto) (21.8-53.1) % [place] % (Auto) (5.3-12.2) % Eos % (Auto) (0.8-7.0) Baso % (Auto) (0.1-1.2) % Neut # (Auto) (1.78-5.38) K/mm3 Lymph # (Auto) (1.32-3.57) K/mm3 [place] # (Auto) (0.30-0.82) K/mm3 Eos # (Auto) (0.04-0.54) K/mm3 Baso # (Auto) (0.01-0.08) K/mm3 Manual Slide Review D-Dimer, Quantitative (0.19-0.50) mg/L Sodium (136-145) mEq/L Potassium (3.5-5.1) mEq/L Chloride (98-107) mEq/L Carbon Dioxide (21-32) mEq/L Anion Gap (5-15) BUN (7-18) mg/dL Creatinine (0.7-1.3) mg/dL Est Cr Clr Drug Dosing Estimated GFR (MDRD) (>60) mL/min BUN/Creatinine Ratio (14-18) Glucose (83-115) mg/dL POC Glucose 150 H (83-110) mg/dL Lactic Acid (0.4-2.0) mmol/L Calcium (8.5-10.1) mg/dL Ferritin (26-388) ng/ml Total Bilirubin (0.2-1.0) mg/dL AST (15-37) U/L ALT (16-63) U/L Alkaline Phosphatase (46-116) U/L Lactate Dehydrogenase (85-227) U/L Troponin I (0.00-0.056) ng/mL C-Reactive Protein (<1.0) mg/dL Total Protein (6.4-8.2) g/dl Albumin (3.4-5.0) g/dl Globulin gm/dL Albumin/Globulin Ratio (1-2) Urine Color (Yellow) Urine Appearance (Clear) Urine pH (5.0-8.0) Ur Specific [place] (1.005-1.030) Urine Protein (Negative) Urine Glucose (UA) (Negative) Urine Ketones (Negative) Urine Occult Blood (Negative) Urine Nitrite (Negative) Urine Bilirubin (Negative) Urine Urobilinogen (0.2-1.0) Ur Leukocyte Esterase (Negative) Urine RBC (0-5) /hpf Urine WBC (0-5) /hpf Ur Squamous Epith Cells (0-5) /hpf Urine Bacteria (FEW) /hpf Urine Mucus (FEW) /hpf SARS-CoV-2 RNA (VICKY) (NEGATIVE) MRSA (PCR) Result Diagrams: 03/09/20 06:45 03/09/20 06:45 Sepsis Event Note - Evaluation Sepsis Screening Result: Sepsis Risk Current Stage of Sepsis: Ruled Out Reason for Ruling Out Sepsis: Normal White blood cell count, normal lactic acid, stable vital signs Possible Source of Sepsis: Genitourinary - Focused Exam Vital Signs: Vital Signs Temp Temp Pulse Pulse Resp BP BP 03/08/20 22:18 03/08/20 21:58 37.8 C 87 16 124/62 03/08/20 19:47 37.8 C 97 141/52 H 03/08/20 18:53 38.8 C H 100 24 H 133/56 L Pulse Ox Pulse Ox 03/08/20 22:18 96 03/08/20 21:58 95 03/08/20 19:47 94 L 03/08/20 18:53 98 - Problem List (1) UTI, Urinary tract infectious disease SNOMED Code(s): 24573379 ICD Code: N39.0 - URINARY TRACT INFECTION, SITE NOT SPECIFIED Status: Acute Priority: High Current Visit: Yes (2) Febrile illness SNOMED Code(s): 949015145 ICD Code: R50.9 - FEVER, UNSPECIFIED Status: Acute Priority: High Current Visit: Yes (3) Chronic renal insufficiency SNOMED Code(s): 198177283 ICD Code: N18.9 - CHRONIC KIDNEY DISEASE, UNSPECIFIED Status: Acute Priority: Medium Current Visit: Yes Qualifiers: Chronic kidney disease stage: stage 3 (moderate) (4) Tang catheter problem SNOMED Code(s): 042867933 ICD Code: T83.9XXA - UNSP COMPLICATION OF GENITOURINARY PROSTH DEV/GRFT, INIT Status: Acute Priority: Medium Current Visit: Yes Qualifiers: Encounter type: subsequent encounter Qualified Code(s): T83.9XXD - Unspecified complication of genitourinary prosthetic device, implant and graft, subsequent encounter (5) Diabetes mellitus type 2 in obese SNOMED Code(s): 11583620 ICD Code: E11.69 - TYPE 2 DIABETES MELLITUS WITH OTHER SPECIFIED COMPLICATION; E66.9 - OBESITY, UNSPECIFIED Status: Chronic Priority: Medium Current Visit: Yes (6) Hypocalcemia SNOMED Code(s): 2979294 ICD Code: E83.51 - HYPOCALCEMIA Status: Acute Priority: High Current Visit: Yes (7) Hypomagnesemia SNOMED Code(s): 260584121 ICD Code: E83.42 - HYPOMAGNESEMIA Status: Acute Priority: High Current Visit: Yes Problem List Initiated/Reviewed/Updated: Yes Orders Last 24hrs: Active Orders 24 hr Category Date Time Status Patient Status [ADT] Routine ADT 03/08/20 21:20 Active Activity as Tolerated [RC] .Routine Care 03/08/20 21:55 Active Blood Glucose Check, Bedside [RC] QIDACANDBED Care 03/08/20 22:00 Active Oxygen Therapy Adult [Oxygen Therapy] [RC] ASDIRECTED Care 03/08/20 22:18 Active Peripheral IV Care [RC] Q2HR Care 03/08/20 16:40 Active [place] [employer] Diet [DIET] Diet 03/09/20 Breakfast Active Chest 1V Frontal [CR] Stat Exams 03/08/20 16:41 Taken Chest PE [Ang Chest] [CT] Stat Exams 03/08/20 18:38 Taken Venous Doppler Lwr Ext Bi [US] Stat Exams 03/08/20 20:12 Taken C-REACTIVE PROTEIN [CHEM] Routine Lab 03/09/20 05:15 Ordered CBC WITH AUTO DIFF [HEME] Routine Lab 03/09/20 05:15 Ordered COMPREHENSIVE METABOLIC PN,CMP [CHEM] Routine Lab 03/09/20 05:15 Ordered CULTURE BLOOD [BC] Stat Lab 03/08/20 17:10 Received CULTURE BLOOD [BC] Stat Lab 03/08/20 17:30 Received CULTURE CATHETER TIP [RM] Stat Lab 03/08/20 18:12 Ordered D-DIMER QUANTITATIVE [COAG] Routine Lab 03/09/20 05:15 Ordered FERRITIN [CHEM] Routine Lab 03/09/20 05:15 Ordered LACTATE DEHYDROGENASE,LDH [CHEM] Routine Lab 03/09/20 05:15 Ordered LACTIC ACID [CHEM] Routine Lab 03/09/20 05:15 Ordered MAGNESIUM [CHEM] Routine Lab 03/09/20 05:15 Ordered Acetaminophen [TylenoL] Med 03/08/20 22:24 Active 650 mg PO Q4H PRN Sodium Chloride 0.9% [Normal Saline] 1,000 ml Med 03/08/20 22:30 Active IV ASDIRECTED Sodium Chloride 0.9% [Saline Flush] Med 03/08/20 16:40 Active 10 ml FLUSH ASDIRECTED PRN cefTRIAXone [Rocephin] 2 gm Med 03/08/20 18:45 Active Sodium Chloride 0.9% [Normal Saline] 100 ml IV Q24H Blood Culture x2 Reflex Set [OM.PC] Stat Ot 03/08/20 16:40 Ordered Isolation [COMM] Routine Ot 03/08/20 21:00 Ordered Peripheral IV Insertion Adult [OM.PC] Stat Ot 03/08/20 16:40 Ordered Precautions [COMM] Routine Ot 03/08/20 22:00 Ordered Resuscitation Status Routine Resus Stat 03/08/20 21:55 Ordered Medication Orders Acetaminophen (Tylenol) 650 mg PO Q4H PRN PRN Reason: Fever Ceftriaxone Sodium 2 gm/ (Sodium Chloride) 100 mls @ 200 mls/hr IV Q24H [facility] Last Admin: 03/08/20 18:53 Dose: 200 mls/hr Documented by: TIFFANIE Sodium Chloride (Normal Saline) 1,000 mls @ 150 mls/hr IV ASDIRECTED [facility] Last Admin: 03/09/20 03:51 Dose: 150 mls/hr Documented by: Infusion: 03/09/20 03:51 Dose: 150 mls/hr Documented by: Admin: 03/09/20 03:50 Dose: 150 mls/hr Documented by: LENO Sodium Chloride (Saline Flush) 10 ml FLUSH ASDIRECTED PRN PRN Reason: Keep Vein Open Last Admin: 03/08/20 16:49 Dose: 10 ml Documented by: TIFFANIE Assessment/Plan Comment:: Patient is an 89-year-old gentleman who has been admitted to acute hospitalization for urinary tract infection. Patient has also been febrile. The patient has 3 out of 4 bottles for blood culture positive for gram-positive cocci. The patient is being treated empirically with Rocephin until culture and sensitivities have returned and then antibiotics will be adjusted accordingly. He also has multiple metabolic abnormalities and these will be corrected. The patient does have diabetes mellitus type 2 and he will be kept on Accu-Cheks before meals and at bedtime along with sliding scale insulin. Patient will also have Tang catheter management. Is been noted that the patient's previous urinalysis did show severe hematuria is current urine has been essentially clear. The patient's DVT prophylaxis will be accomplished through [facility] as he is appears to be a fall risk and also bleeding concern from bladder tumor removal. PT OT has also been ordered for the patient. The major concern is that the patient lives alone in an assisted living center and may need to have g reater care. Repeat laboratory studies have been ordered. - Mortality Measure Prognosis:: Poor
[2020-03-09] MEDS ORDERED: Temazepam 15 MG Cap PO PRN (11:44)
[2020-03-09] MEDS ORDERED: oxyCODONE 5 MG Tab PO PRN (11:44)
[2020-03-09] MEDS ORDERED: 50% Dextrose in Water 50 ML Syringe IVPUSH PRN (14:05)
[2020-03-09] MEDS ORDERED: Insulin Lispro 100 Units/ML 3 ML Vial SUBCUT SCH (17:00)
[2020-03-09] MEDS: cefTRIAXone 2 GM in Sodium Chloride 0.9% 100 ML IV SCH (18:22)
[2020-03-09] MEDS: Insulin Lispro 100 Units/ML 3 ML Vial SUBCUT SCH ×2 (18:22→22:56)
[2020-03-10] MEDS: Sodium Chloride 0.9% 1,000 ML IV SCH ×3 (03:06→20:10)
[2020-03-10] MEDS ORDERED: Magnesium Hydroxide 400 MG/5 ML Susp 30 ML Cup PO ONE (06:00)
[2020-03-10] MEDS: Insulin Lispro 100 Units/ML 3 ML Vial SUBCUT SCH ×4 (06:31→21:56)
--- NOTE | 2020-03-10 08:33 | PCM.PN ---
- General Info Date of Service: 03/10/20 Admission Dx/Problem (Free Text): Admission Diagnosis/Problem Admission Diagnosis/Problem Urinary tract infection Subjective Update: Is an 84-year-old gentleman was admitted yesterday after sliding out of his recliner at home. At that time said that he has a fever and he had been having difficulty since he had a chronic end dwelling Khanna catheter placed in January after surgery. Patient today is somewhat confused. He is a poor historian. He has had any pain. Functional Status: Reports: Pain Controlled - Review of Systems General: Reports: No Symptoms HEENT: Reports: No Symptoms Pulmonary: Reports: No Symptoms Cardiovascular: Reports: No Symptoms Gastrointestinal: Reports: No Symptoms Genitourinary: Reports: No Symptoms Musculoskeletal: Reports: No Symptoms Skin: Reports: No Symptoms Neurological: Reports: No Symptoms Psychiatric: Reports: No Symptoms Systems Review Comment:: The patient is somewhat confused today. Therefore, review of system is somewhat suspect. - Patient Data Vitals - Most Recent: Last Vital Signs Temp 37.1 C 03/10/20 03:11 Pulse 73 03/10/20 03:13 Resp 20 03/10/20 03:11 BP 121/43 L 03/10/20 03:11 Pulse Ox 92 L 03/10/20 05:52 Weight - Most Recent: 118.07 kg I&O - Last 24 Hours: Intake & Output 03/09/20 03/10/20 03/10/20 22:59 06:59 14:59 Intake Total 2300 2167 Output Total 1500 1550 Balance 800 617 Lab Results Last 24 Hours: Laboratory Results - last 24 hr 03/09/20 03/09/20 03/09/20 Range/Units 06:45 06:45 06:45 WBC (4.23-9.07) K/mm3 RBC (4.63-6.08) M/mm3 Hgb (13.7-17.5) gm/dl Hct (40.1-51.0) % MCV (79.0-92.2) fl MCH (25.7-32.2) pg MCHC (32.2-35.5) g/dl RDW Std Deviation (35.1-43.9) fL Plt Count (163-337) K/mm3 MPV (9.4-12.3) fl Neut % (Auto) (34.0-67.9) % Lymph % (Auto) (21.8-53.1) % Buchanan % (Auto) (5.3-12.2) % Eos % (Auto) (0.8-7.0) Baso % (Auto) (0.1-1.2) % Neut # (Auto) (1.78-5.38) K/mm3 Lymph # (Auto) (1.32-3.57) K/mm3 Buchanan # (Auto) (0.30-0.82) K/mm3 Eos # (Auto) (0.04-0.54) K/mm3 Baso # (Auto) (0.01-0.08) K/mm3 Manual Slide Review D-Dimer, Quantitative 22.88 H (0.19-0.50) mg/L Sodium 140 (136-145) mEq/L Potassium 3.5 (3.5-5.1) mEq/L Chloride 103 (98-107) mEq/L Carbon Dioxide 24 (21-32) mEq/L Anion Gap 16.5 H (5-15) BUN 21 H (7-18) mg/dL Creatinine 2.0 H (0.7-1.3) mg/dL Est Cr Clr Drug Dosing 25.71 mL/min Estimated GFR (MDRD) 32 (>60) mL/min BUN/Creatinine Ratio 10.5 L (14-18) Glucose 157 H (83-115) mg/dL POC Glucose (83-110) mg/dL Calcium 8.1 L (8.5-10.1) mg/dL Magnesium 1.7 L (1.8-2.4) mg/dl Ferritin 532 H (26-388) ng/ml Total Bilirubin 0.6 (0.2-1.0) mg/dL AST 26 (15-37) U/L ALT 22 (16-63) U/L Alkaline Phosphatase 105 (46-116) U/L Lactate Dehydrogenase 235 H (85-227) U/L C-Reactive Protein 26.7 H* (<1.0) mg/dL Total Protein 6.4 (6.4-8.2) g/dl Albumin 2.4 L (3.4-5.0) g/dl Globulin 4.0 gm/dL Albumin/Globulin Ratio 0.6 L (1-2) 03/09/20 03/09/20 03/09/20 Range/Units 11:28 17:22 22:36 WBC (4.23-9.07) K/mm3 RBC (4.63-6.08) M/mm3 Hgb (13.7-17.5) gm/dl Hct (40.1-51.0) % MCV (79.0-92.2) fl MCH (25.7-32.2) pg MCHC (32.2-35.5) g/dl RDW Std Deviation (35.1-43.9) fL Plt Count (163-337) K/mm3 MPV (9.4-12.3) fl Neut % (Auto) (34.0-67.9) % Lymph % (Auto) (21.8-53.1) % Buchanan % (Auto) (5.3-12.2) % Eos % (Auto) (0.8-7.0) Baso % (Auto) (0.1-1.2) % Neut # (Auto) (1.78-5.38) K/mm3 Lymph # (Auto) (1.32-3.57) K/mm3 Buchanan # (Auto) (0.30-0.82) K/mm3 Eos # (Auto) (0.04-0.54) K/mm3 Baso # (Auto) (0.01-0.08) K/mm3 Manual Slide Review D-Dimer, Quantitative (0.19-0.50) mg/L Sodium (136-145) mEq/L Potassium (3.5-5.1) mEq/L Chloride (98-107) mEq/L Carbon Dioxide (21-32) mEq/L Anion Gap (5-15) BUN (7-18) mg/dL Creatinine (0.7-1.3) mg/dL Est Cr Clr Drug Dosing mL/min Estimated GFR (MDRD) (>60) mL/min BUN/Creatinine Ratio (14-18) Glucose (83-115) mg/dL POC Glucose 161 H 172 H 168 H (83-110) mg/dL Calcium (8.5-10.1) mg/dL Magnesium (1.8-2.4) mg/dl Ferritin (26-388) ng/ml Total Bilirubin (0.2-1.0) mg/dL AST (15-37) U/L ALT (16-63) U/L Alkaline Phosphatase (46-116) U/L Lactate Dehydrogenase (85-227) U/L C-Reactive Protein (<1.0) mg/dL Total Protein (6.4-8.2) g/dl Albumin (3.4-5.0) g/dl Globulin gm/dL Albumin/Globulin Ratio (1-2) 03/10/20 03/10/20 03/10/20 Range/Units 06:27 06:28 06:28 WBC 3.18 L (4.23-9.07) K/mm3 RBC 2.75 L (4.63-6.08) M/mm3 Hgb 7.8 L (13.7-17.5) gm/dl Hct 25.8 L (40.1-51.0) % MCV 93.8 H (79.0-92.2) fl MCH 28.4 (25.7-32.2) pg MCHC 30.2 L (32.2-35.5) g/dl RDW Std Deviation 43.4 (35.1-43.9) fL Plt Count 125 L (163-337) K/mm3 MPV 10.3 (9.4-12.3) fl Neut % (Auto) 65.5 (34.0-67.9) % Lymph % (Auto) 21.7 L (21.8-53.1) % Buchanan % (Auto) 11.3 (5.3-12.2) % Eos % (Auto) 0.9 (0.8-7.0) Baso % (Auto) 0.3 (0.1-1.2) % Neut # (Auto) 2.08 (1.78-5.38) K/mm3 Lymph # (Auto) 0.69 L (1.32-3.57) K/mm3 Buchanan # (Auto) 0.36 (0.30-0.82) K/mm3 Eos # (Auto) 0.03 L (0.04-0.54) K/mm3 Baso # (Auto) 0.01 (0.01-0.08) K/mm3 Manual Slide Review Abnormal smear D-Dimer, Quantitative 13.23 H (0.19-0.50) mg/L Sodium (136-145) mEq/L Potassium (3.5-5.1) mEq/L Chloride (98-107) mEq/L Carbon Dioxide (21-32) mEq/L Anion Gap (5-15) BUN (7-18) mg/dL Creatinine (0.7-1.3) mg/dL Est Cr Clr Drug Dosing mL/min Estimated GFR (MDRD) (>60) mL/min BUN/Creatinine Ratio (14-18) Glucose (83-115) mg/dL POC Glucose 134 H (83-110) mg/dL Calcium (8.5-10.1) mg/dL Magnesium (1.8-2.4) mg/dl Ferritin (26-388) ng/ml Total Bilirubin (0.2-1.0) mg/dL AST (15-37) U/L ALT (16-63) U/L Alkaline Phosphatase (46-116) U/L Lactate Dehydrogenase (85-227) U/L C-Reactive Protein (<1.0) mg/dL Total Protein (6.4-8.2) g/dl Albumin (3.4-5.0) g/dl Globulin gm/dL Albumin/Globulin Ratio (1-2) 03/10/20 Range/Units 06:28 WBC (4.23-9.07) K/mm3 RBC (4.63-6.08) M/mm3 Hgb (13.7-17.5) gm/dl Hct (40.1-51.0) % MCV (79.0-92.2) fl MCH (25.7-32.2) pg MCHC (32.2-35.5) g/dl RDW Std Deviation (35.1-43.9) fL Plt Count (163-337) K/mm3 MPV (9.4-12.3) fl Neut % (Auto) (34.0-67.9) % Lymph % (Auto) (21.8-53.1) % Buchanan % (Auto) (5.3-12.2) % Eos % (Auto) (0.8-7.0) Baso % (Auto) (0.1-1.2) % Neut # (Auto) (1.78-5.38) K/mm3 Lymph # (Auto) (1.32-3.57) K/mm3 Buchanan # (Auto) (0.30-0.82) K/mm3 Eos # (Auto) (0.04-0.54) K/mm3 Baso # (Auto) (0.01-0.08) K/mm3 Manual Slide Review D-Dimer, Quantitative (0.19-0.50) mg/L Sodium 139 (136-145) mEq/L Potassium 3.2 L (3.5-5.1) mEq/L Chloride 103 (98-107) mEq/L Carbon Dioxide 27 (21-32) mEq/L Anion Gap 12.2 (5-15) BUN 19 H (7-18) mg/dL Creatinine 1.4 H (0.7-1.3) mg/dL Est Cr Clr Drug Dosing 36.73 mL/min Estimated GFR (MDRD) 48 (>60) mL/min BUN/Creatinine Ratio 13.6 L (14-18) Glucose 126 H (83-115) mg/dL POC Glucose (83-110) mg/dL Calcium 7.2 L (8.5-10.1) mg/dL Magnesium 1.5 L (1.8-2.4) mg/dl Ferritin (26-388) ng/ml Total Bilirubin (0.2-1.0) mg/dL AST (15-37) U/L ALT (16-63) U/L Alkaline Phosphatase (46-116) U/L Lactate Dehydrogenase (85-227) U/L C-Reactive Protein 22.0 H* (<1.0) mg/dL Total Protein (6.4-8.2) g/dl Albumin (3.4-5.0) g/dl Globulin gm/dL Albumin/Globulin Ratio (1-2) Driss Results Last 24 Hours: Microbiology 03/08/20 18:12 Catheter Tip Culture - Preliminary Catheter Tip Other - Khanna Catheter Enterococcus Species 03/08/20 17:30 Aerobic Blood Culture - Preliminary Blood - Venous - Lab Draw NO GROWTH AFTER 1 DAY Anaerobic Blood Culture - Preliminary Enterococcus Species 03/08/20 17:10 Aerobic Blood Culture - Preliminary Blood - Venous Enterococcus Species Anaerobic Blood Culture - Preliminary Enterococcus Species Med Orders - Current: Current Medications Acetaminophen (Tylenol) 650 mg PO Q4H PRN PRN Reason: Fever Dextrose/Water (Dextrose 50% In Water) 50 ml IVPUSH ASDIRECTED PRN PRN Reason: Hypoglycemia Finasteride (Proscar) 5 mg PO DAILY [facility] Furosemide (Lasix) 20 mg PO TID [facility] Ceftriaxone Sodium 2 gm/ (Sodium Chloride) 100 mls @ 200 mls/hr IV Q24H [facility] Last Admin: 03/09/20 18:22 Dose: 200 mls/hr Documented by: Sodium Chloride (Normal Saline) 1,000 mls @ 125 mls/hr IV ASDIRECTED [facility] Last Admin: 03/10/20 03:06 Dose: 125 mls/hr Documented by: Insulin Human Lispro (Humalog) 0 unit SUBCUT QIDACANDBED [facility]; Protocol Last Admin: 03/10/20 06:31 Dose: Not Given Documented by: Levothyroxine Sodium (Synthroid) 50 mcg PO ACBREAKFAST [facility] Metoprolol Tartrate (Lopressor) 50 mg PO BID [facility] Colestipol 1 Gm - Pt ('s Own Med) 0 gm PO BID [facility] Oxybutynin Chloride (Oxybutynin Er) 10 mg PO DAILY [facility] Oxycodone HCl (Oxycodone) 5 mg PO Q4H PRN PRN Reason: Pain (moderate 4-6) Pantoprazole Sodium (Protonix) 40 mg PO DAILY@0700 [facility] Potassium Chloride (Klor-Con 10) 10 meq PO DAILY [facility] Sodium Chloride (Saline Flush) 10 ml FLUSH ASDIRECTED PRN PRN Reason: Keep Vein Open Last Admin: 03/08/20 16:49 Dose: 10 ml Documented by: Tamsulosin HCl (Flomax) 0.8 mg PO DAILY [facility] Temazepam (Restoril) 15 mg PO BEDTIME PRN PRN Reason: Sleep Discontinued Medications Acetaminophen (Tylenol) 975 mg PO NOW ONE Stop: 03/08/20 16:50 Last Admin: 03/08/20 17:31 Dose: 975 mg Documented by: Sodium Chloride (Normal Saline) 1,000 mls @ 999 mls/hr IV NOW STA Stop: 03/08/20 18:34 Last Infusion: 03/08/20 18:43 Dose: 150 mls/hr Documented by: Sodium Chloride (Normal Saline) 100 mls @ 4 mls/sec IV ONETIME ONE Stop: 03/08/20 19:43 Sodium Chloride (Normal Saline) 1,000 mls @ 150 mls/hr IV ASDIRECTED [facility] Last Admin: 03/09/20 11:13 Dose: 150 mls/hr Documented by: Iopamidol ([id number] (76%)) 100 ml IVPUSH ONETIME ONE Stop: 03/08/20 19:43 Last Admin: 03/08/20 19:43 Dose: 100 ml Documented by: Magnesium Hydroxide (Milk Of Magnesia) 30 ml PO ONETIME ONE Stop: 03/10/20 06:01 Last Admin: 03/10/20 06:30 Dose: 30 ml Documented by: Ondansetron HCl (Zofran) 4 mg IVPUSH ONETIME ONE Stop: 03/08/20 16:58 Last Admin: 03/08/20 17:30 Dose: 4 mg Documented by: - Exam Quality Assessment: Supplemental Oxygen General: Alert, No Acute Distress. No: Oriented HEENT: Pupils Equal, Pupils Reactive Neck: Supple, Trachea Midline Lungs: Clear to Auscultation, Normal Respiratory Effort Cardiovascular: Regular Rate, Regular Rhythm GI/Abdominal Exam: Soft. No: Normal Bowel Sounds (Hyperactive) (Male) Exam: Deferred Back Exam: Normal Inspection. No: Full Range of Motion (Age-appropriate) Extremities: Normal Inspection, No Pedal Edema Skin: Warm, Dry, Intact Neurological: No New Focal Deficit Psy/Mental Status: Alert Sepsis Event Note - Evaluation Sepsis Screening Result: No Definite Risk - Focused Exam Vital Signs: Vital Signs Temp Temp Pulse Resp BP Pulse Ox Pulse Ox 03/10/20 05:52 92 L 03/10/20 03:15 03/10/20 03:13 73 92 L 03/10/20 03:11 37.1 C 81 20 121/43 L 79 L 03/10/20 01:45 37.1 C 03/09/20 23:43 37.7 C 83 24 H 118/57 L 94 L Pulse Ox 03/10/20 05:52 03/10/20 03:15 92 L 03/10/20 03:13 03/10/20 03:11 03/10/20 01:45 03/09/20 23:43 - Problem List & Annotations (1) UTI, Urinary tract infectious disease SNOMED Code(s): 90050439 Code(s): N39.0 - URINARY TRACT INFECTION, SITE NOT SPECIFIED Status: Acute Priority: High Current Visit: Yes (2) Bacteremia due to Enterococcus SNOMED Code(s): 605364429418, 293465439535 Code(s): R78.81 - BACTEREMIA; B95.2 - ENTEROCOCCUS THE CAUSE OF DISEASES CLASSIFIED ELSEWHERE Status: Acute Priority: High Current Visit: Yes (3) Febrile illness SNOMED Code(s): 268990078 Code(s): R50.9 - FEVER, UNSPECIFIED Status: Acute Priority: High Current Visit: Yes (4) Chronic renal insufficiency SNOMED Code(s): 880737598 Code(s): N18.9 - CHRONIC KIDNEY DISEASE, UNSPECIFIED Status: Acute Priority: Medium Current Visit: Yes Qualifiers: Chronic kidney disease stage: stage 3 (moderate) (5) Khanna catheter problem SNOMED Code(s): 984806797 Code(s): T83.9XXA - UNSP COMPLICATION OF GENITOURINARY PROSTH DEV/GRFT, INIT Status: Acute Priority: Medium Current Visit: Yes Qualifiers: Encounter type: subsequent encounter Qualified Code(s): T83.9XXD - Unspecified complication of genitourinary prosthetic device, implant and graft, subsequent encounter (6) Diabetes mellitus type 2 in obese SNOMED Code(s): 59184964 Code(s): E11.69 - TYPE 2 DIABETES MELLITUS WITH OTHER SPECIFIED COMPLICATION; E66.9 - OBESITY, UNSPECIFIED Status: Chronic Priority: Medium Current Visit: Yes (7) Hypocalcemia SNOMED Code(s): 3822866 Code(s): E83.51 - HYPOCALCEMIA Status: Acute Priority: High Current Visit: Yes (8) Hypomagnesemia SNOMED Code(s): 326710009 Code(s): E83.42 - HYPOMAGNESEMIA Status: Acute Priority: High Current Visit: Yes (9) Anemia SNOMED Code(s): 484379930 Code(s): D64.9 - ANEMIA, UNSPECIFIED Status: Acute Priority: High Current Visit: Yes Qualifiers: Anemia type: unspecified type Qualified Code(s): D64.9 - Anemia, unspecified - Problem List Review Problem List Initiated/Reviewed/Updated: Yes - My Orders Last 24 Hours: My Active Orders 03/09/20 Lunch Clear Liquid Diet [DIET] 03/09/20 11:44 Oxygen Therapy [RC] PRN Up With Assistance [RC] BID Urinary Catheter Assessment [RC] QSHIFT VTE/DVT Education [RC] DAILY Vital Signs [RC] Q4HR OT Evaluation and Treatment [CONS] Routine PT Evaluation and Treatment [CONS] Routine Temazepam [Restoril] 15 mg PO BEDTIME PRN oxyCODONE 5 mg PO Q4H PRN VTE Pharmacological Contraindications [AST] Per Unit Routine 03/09/20 11:45 Sodium Chloride 0.9% [Normal Saline] 1,000 ml IV ASDIRECTED Sequential Compression Device [OM.PC] Per Unit Routine 03/09/20 11:46 Antiembolic Devices [RC] BID 03/09/20 14:05 Dextrose 50% in Water 50 ml IVPUSH ASDIRECTED PRN 03/09/20 17:00 Insulin Lispro [HumaLOG] See Protocol SUBCUT QIDACANDBED 03/10/20 08:30 Pantoprazole [ProTONIX] 40 mg PO DAILY@0700 03/10/20 09:00 Colestipol 0 gm PO BID Finasteride [Proscar] 5 mg PO DAILY Furosemide [Lasix] 20 mg PO TID Metoprolol Tartrate [Lopressor] 50 mg PO BID Oxybutynin [Oxybutynin ER] 10 mg PO DAILY Potassium Chloride [Klor-Con 10] 10 meq PO DAILY Tamsulosin [Flomax] 0.8 mg PO DAILY 03/11/20 06:00 Levothyroxine [Synthroid] 50 mcg PO ACBREAKFAST - Assessment Assessment:: 03/10/2020 The patient's blood cultures did come back positive for likely Enterococcus. The patient's Rocephin has been discontinued and after review of antibiogram the patient was placed on IV linezolid. The patient also has been noted to have a drop in his hemoglobin and this will be monitored and if the patient does drop below 7.0 g/dL will consider transfusion. Patient does have an indwelling catheter which is likely the source of the infection. The patient will need to follow-up with his urologist as he has recently had surgery to help correct what sounds like phimosis. The patient will be continued on the ADA diet. He is on insulin sliding scale. Patient's vital signs will be monitored and his antihypertensive medications adjusted as necessary. Repeat laboratory studies have also been ordered. PT OT has also been ordered. The patient might likely need to have placement. - Plan Plan:: Patient is an 89-year-old gentleman who has been admitted to acute hospitalization for urinary tract infection. Patient has also been febrile. The patient has 3 out of 4 bottles for blood culture positive for gram-positive cocci. The patient is being treated empirically with Rocephin until culture and sensitivities have returned and then antibiotics will be adjusted accordingly. He also has multiple metabolic abnormalities and these will be corrected. The patient does have diabetes mellitus type 2 and he will be kept on Accu-Cheks before meals and at bedtime along with sliding scale insulin. Patient will also have Khanna catheter management. Is been noted that the patient's previous ur inalysis did show severe hematuria is current urine has been essentially clear. 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 PT OT has also been ordered for the patient. The major concern is that the patient lives alone in an assisted living center and may need to have greater care. Repeat laboratory studies have been ordered.
[2020-03-10] MEDS ORDERED: Magnesium Sulfate/Water 2 GM/50 ML BAG IV ONE (09:48)
[2020-03-10] MEDS ORDERED: Calcium Gluconate 10% 1 GM/10 ML SDV IVPUSH ONE (09:50)
[2020-03-10] MEDS: Oxybutynin 5 MG Tab.ER PO SCH (10:12)
[2020-03-10] MEDS: Tamsulosin 0.4 MG Cap.ER PO SCH (10:12)
[2020-03-10] MEDS: Furosemide 20 MG Tab PO SCH ×3 (10:12→21:51)
[2020-03-10] MEDS: Finasteride 5 MG Tab PO SCH (10:12)
[2020-03-10] MEDS: Pantoprazole 40 MG Tab.CR PO SCH (10:13)
[2020-03-10] MEDS: COLESTIPOL 1 GM PO SCH ×2 (10:13→22:10)
[2020-03-10] MEDS: Potassium Chloride 10 MEQ Tab.ER PO SCH (10:13)
[2020-03-10] MEDS: Metoprolol Tartrate 50 MG Tab PO SCH ×2 (10:14→21:54)
[2020-03-10] MEDS: Linezolid 600 MG in Premix Bag 1 BAG IV SCH ×2 (10:17→21:59)
[2020-03-11] MEDS: Sodium Chloride 0.9% 1,000 ML IV SCH ×2 (04:46→22:54)
[2020-03-11] MEDS: Levothyroxine 50 MCG Tab PO SCH (05:06)
[2020-03-11] MEDS: Acetaminophen 325 MG Tab PO PRN (05:06)
--- NOTE | 2020-03-11 07:48 | PCM.PN ---
- General Info Date of Service: 03/11/20 Admission Dx/Problem (Free Text): Admission Diagnosis/Problem Admission Diagnosis/Problem Urinary tract infection Subjective Update: The patient is an 84-year-old gentleman who had been admitted after having had a possible urinary tract infection. Today the patient is much more awake. He is alert and oriented. He has been able to carry a conversation. The patient has denied any pain and he says that he has been tolerating diet. Functional Status: Reports: Pain Controlled, Tolerating Diet - Review of Systems General: Reports: No Symptoms HEENT: Reports: No Symptoms Pulmonary: Reports: No Symptoms Cardiovascular: Reports: No Symptoms Gastrointestinal: Reports: No Symptoms Genitourinary: Reports: No Symptoms Musculoskeletal: Reports: No Symptoms Skin: Reports: No Symptoms Neurological: Reports: No Symptoms Psychiatric: Reports: No Symptoms - Patient Data Vitals - Most Recent: Last Vital Signs Temp 37.3 C 03/11/20 05:06 Pulse 59 L 03/11/20 04:55 Resp 24 H 03/10/20 23:09 BP 139/101 H 03/11/20 04:55 Pulse Ox 95 03/11/20 06:26 Weight - Most Recent: 124.284 kg I&O - Last 24 Hours: Intake & Output 03/10/20 03/11/20 03/11/20 22:59 06:59 14:59 Intake Total 3550 1966 Output Total 3005 975 Balance 545 991 Lab Results Last 24 Hours: Laboratory Results - last 24 hr 03/10/20 03/10/20 03/10/20 Range/Units 06:28 06:28 11:44 WBC (4.23-9.07) K/mm3 RBC (4.63-6.08) M/mm3 Hgb (13.7-17.5) gm/dl Hct (40.1-51.0) % MCV (79.0-92.2) fl MCH (25.7-32.2) pg MCHC (32.2-35.5) g/dl RDW Std Deviation (35.1-43.9) fL Plt Count (163-337) K/mm3 MPV (9.4-12.3) fl Neut % (Auto) (34.0-67.9) % Lymph % (Auto) (21.8-53.1) % Nye % (Auto) (5.3-12.2) % Eos % (Auto) (0.8-7.0) Baso % (Auto) (0.1-1.2) % Neut # (Auto) (1.78-5.38) K/mm3 Lymph # (Auto) (1.32-3.57) K/mm3 Nye # (Auto) (0.30-0.82) K/mm3 Eos # (Auto) (0.04-0.54) K/mm3 Baso # (Auto) (0.01-0.08) K/mm3 Manual Slide Review Abnormal smear Sodium (136-145) mEq/L Potassium (3.5-5.1) mEq/L Chloride (98-107) mEq/L Carbon Dioxide (21-32) mEq/L Anion Gap (5-15) BUN (7-18) mg/dL Creatinine (0.7-1.3) mg/dL Est Cr Clr Drug Dosing mL/min Estimated GFR (MDRD) (>60) mL/min BUN/Creatinine Ratio (14-18) Glucose (83-115) mg/dL POC Glucose 181 H (83-110) mg/dL Calcium (8.5-10.1) mg/dL Magnesium (1.8-2.4) mg/dl Total Bilirubin (0.2-1.0) mg/dL AST (15-37) U/L ALT (16-63) U/L Alkaline Phosphatase (46-116) U/L C-Reactive Protein 22.0 H* (<1.0) mg/dL Total Protein (6.4-8.2) g/dl Albumin (3.4-5.0) g/dl Globulin gm/dL Albumin/Globulin Ratio (1-2) 03/10/20 03/10/20 03/11/20 Range/Units 16:55 21:53 04:45 WBC 3.38 L (4.23-9.07) K/mm3 RBC 3.00 L (4.63-6.08) M/mm3 Hgb 8.5 L (13.7-17.5) gm/dl Hct 27.6 L (40.1-51.0) % MCV 92.0 (79.0-92.2) fl MCH 28.3 (25.7-32.2) pg MCHC 30.8 L (32.2-35.5) g/dl RDW Std Deviation 42.2 (35.1-43.9) fL Plt Count 124 L (163-337) K/mm3 MPV 10.7 (9.4-12.3) fl Neut % (Auto) 61.8 (34.0-67.9) % Lymph % (Auto) 22.8 (21.8-53.1) % Nye % (Auto) 11.8 (5.3-12.2) % Eos % (Auto) 2.7 (0.8-7.0) Baso % (Auto) 0.3 (0.1-1.2) % Neut # (Auto) 2.09 (1.78-5.38) K/mm3 Lymph # (Auto) 0.77 L (1.32-3.57) K/mm3 Nye # (Auto) 0.40 (0.30-0.82) K/mm3 Eos # (Auto) 0.09 (0.04-0.54) K/mm3 Baso # (Auto) 0.01 (0.01-0.08) K/mm3 Manual Slide Review Sodium (136-145) mEq/L Potassium (3.5-5.1) mEq/L Chloride (98-107) mEq/L Carbon Dioxide (21-32) mEq/L Anion Gap (5-15) BUN (7-18) mg/dL Creatinine (0.7-1.3) mg/dL Est Cr Clr Drug Dosing mL/min Estimated GFR (MDRD) (>60) mL/min BUN/Creatinine Ratio (14-18) Glucose (83-115) mg/dL POC Glucose 189 H 224 H (83-110) mg/dL Calcium (8.5-10.1) mg/dL Magnesium (1.8-2.4) mg/dl Total Bilirubin (0.2-1.0) mg/dL AST (15-37) U/L ALT (16-63) U/L Alkaline Phosphatase (46-116) U/L C-Reactive Protein (<1.0) mg/dL Total Protein (6.4-8.2) g/dl Albumin (3.4-5.0) g/dl Globulin gm/dL Albumin/Globulin Ratio (1-2) 10/14/20 10/14/20 Range/Units 04:45 06:37 WBC (4.23-9.07) K/mm3 RBC (4.63-6.08) M/mm3 Hgb (13.7-17.5) gm/dl Hct (40.1-51.0) % MCV (79.0-92.2) fl MCH (25.7-32.2) pg MCHC (32.2-35.5) g/dl RDW Std Deviation (35.1-43.9) fL Plt Count (163-337) K/mm3 MPV (9.4-12.3) fl Neut % (Auto) (34.0-67.9) % Lymph % (Auto) (21.8-53.1) % Nye % (Auto) (5.3-12.2) % Eos % (Auto) (0.8-7.0) Baso % (Auto) (0.1-1.2) % Neut # (Auto) (1.78-5.38) K/mm3 Lymph # (Auto) (1.32-3.57) K/mm3 Nye # (Auto) (0.30-0.82) K/mm3 Eos # (Auto) (0.04-0.54) K/mm3 Baso # (Auto) (0.01-0.08) K/mm3 Manual Slide Review Sodium 136 (136-145) mEq/L Potassium 3.1 L (3.5-5.1) mEq/L Chloride 100 (98-107) mEq/L Carbon Dioxide 25 (21-32) mEq/L Anion Gap 14.1 (5-15) BUN 15 (7-18) mg/dL Creatinine 1.3 (0.7-1.3) mg/dL Est Cr Clr Drug Dosing 39.55 mL/min Estimated GFR (MDRD) 53 (>60) mL/min BUN/Creatinine Ratio 11.5 L (14-18) Glucose 194 H (83-115) mg/dL POC Glucose 191 H (83-110) mg/dL Calcium 7.6 L (8.5-10.1) mg/dL Magnesium 1.6 L (1.8-2.4) mg/dl Total Bilirubin 0.4 (0.2-1.0) mg/dL AST 29 (15-37) U/L ALT 27 (16-63) U/L Alkaline Phosphatase 88 (46-116) U/L C-Reactive Protein 21.9 H* (<1.0) mg/dL Total Protein 5.9 L (6.4-8.2) g/dl Albumin 2.1 L (3.4-5.0) g/dl Globulin 3.8 gm/dL Albumin/Globulin Ratio 0.6 L (1-2) Driss Results Last 24 Hours: Microbiology 03/08/20 17:30 Aerobic Blood Culture - Preliminary Blood - Venous - Lab Draw NO GROWTH AFTER 2 DAYS Anaerobic Blood Culture - Preliminary Enterococcus Species 03/08/20 18:12 Catheter Tip Culture - Preliminary Catheter Tip Other - Khanna Catheter Enterococcus Species 03/08/20 17:10 Aerobic Blood Culture - Preliminary Blood - Venous Enterococcus Species Anaerobic Blood Culture - Preliminary Enterococcus Species Med Orders - Current: Current Medications Acetaminophen (Tylenol) 650 mg PO Q4H PRN PRN Reason: Fever Last Admin: 03/11/20 05:06 Dose: 650 mg Documented by: Dextrose/Water (Dextrose 50% In Water) 50 ml IVPUSH ASDIRECTED PRN PRN Reason: Hypoglycemia Finasteride (Proscar) 5 mg PO DAILY [facility] Last Admin: 03/10/20 10:12 Dose: 5 mg Documented by: Furosemide (Lasix) 20 mg PO TID [facility] Last Admin: 03/10/20 21:51 Dose: 20 mg Documented by: Sodium Chloride (Normal Saline) 1,000 mls @ 125 mls/hr IV ASDIRECTED [facility] Last Admin: 03/11/20 04:46 Dose: 125 mls/hr Documented by: Linezolid 600 mg/ Premix 300 mls @ 300 mls/hr IV Q12H [facility] Last Admin: 03/10/20 21:59 Dose: 300 mls/hr Documented by: Insulin Human Lispro (Humalog) 0 unit SUBCUT QIDACANDBED [facility]; Protocol Last Admin: 03/10/20 21:56 Dose: 2 unit Documented by: Levothyroxine Sodium (Synthroid) 50 mcg PO ACBREAKFAST [facility] Last Admin: 03/11/20 05:06 Dose: 50 mcg Documented by: Metoprolol Tartrate (Lopressor) 50 mg PO BID [facility] Last Admin: 03/10/20 21:54 Dose: Not Given Documented by: Colestipol 1 Gm - Pt ('s Own Med) 0 gm PO BID [facility] Last Admin: 03/10/20 22:10 Dose: Not Given Documented by: Oxybutynin Chloride (Oxybutynin Er) 10 mg PO DAILY [facility] Last Admin: 03/10/20 10:12 Dose: 10 mg Documented by: Oxycodone HCl (Oxycodone) 5 mg PO Q4H PRN PRN Reason: Pain (moderate 4-6) Pantoprazole Sodium (Protonix) 40 mg PO DAILY@0700 [facility] Last Admin: 03/10/20 10:13 Dose: 40 mg Documented by: Potassium Chloride (Klor-Con 10) 10 meq PO DAILY [facility] Last Admin: 03/10/20 10:13 Dose: 10 meq Documented by: Sodium Chloride (Saline Flush) 10 ml FLUSH ASDIRECTED PRN PRN Reason: Keep Vein Open Last Admin: 03/08/20 16:49 Dose: 10 ml Documented by: Tamsulosin HCl (Flomax) 0.8 mg PO DAILY [facility] Last Admin: 03/10/20 10:12 Dose: 0.8 mg Documented by: Temazepam (Restoril) 15 mg PO BEDTIME PRN PRN Reason: Sleep Discontinued Medications Acetaminophen (Tylenol) 975 mg PO NOW ONE Stop: 03/08/20 16:50 Last Admin: 03/08/20 17:31 Dose: 975 mg Documented by: Calcium Gluconate (Calcium Gluconate) 1 gm IVPUSH ONETIME ONE Stop: 03/10/20 09:51 Last Admin: 03/10/20 10:14 Dose: 1 gm Documented by: Sodium Chloride (Normal Saline) 1,000 mls @ 999 mls/hr IV NOW STA Stop: 03/08/20 18:34 Last Infusion: 03/08/20 18:43 Dose: 150 mls/hr Documented by: Ceftriaxone Sodium 2 gm/ (Sodium Chloride) 100 mls @ 200 mls/hr IV Q24H [facility] Last Admin: 03/09/20 18:22 Dose: 200 mls/hr Documented by: Sodium Chloride (Normal Saline) 100 mls @ 4 mls/sec IV ONETIME ONE Stop: 03/08/20 19:43 Sodium Chloride (Normal Saline) 1,000 mls @ 150 mls/hr IV ASDIRECTED [facility] Last Admin: 03/09/20 11:13 Dose: 150 mls/hr Documented by: Magnesium Sulfate (Magnesium Sulfate In Water Premix) 2 gm in 50 mls @ 25 mls/hr IV ONETIME ONE Stop: 03/10/20 11:47 Last Admin: 03/10/20 10:21 Dose: 25 mls/hr Documented by: Iopamidol (Isovue-370 (76%)) 100 ml IVPUSH ONETIME ONE Stop: 03/08/20 19:43 Last Admin: 03/08/20 19:43 Dose: 100 ml Documented by: Magnesium Hydroxide (Milk Of Magnesia) 30 ml PO ONETIME ONE Stop: 03/10/20 06:01 Last Admin: 03/10/20 06:30 Dose: 30 ml Documented by: Ondansetron HCl (Zofran) 4 mg IVPUSH ONETIME ONE Stop: 03/08/20 16:58 Last Admin: 03/08/20 17:30 Dose: 4 mg Documented by: - Exam Quality Assessment: Supplemental Oxygen, Urine Catheter (Chronic) General: Alert, Oriented, No Acute Distress HEENT: Pupils Equal, Pupils Reactive, EOMI Neck: Supple, Trachea Midline Lungs: Clear to Auscultation, Normal Respiratory Effort Cardiovascular: Regular Rate, Murmurs (2 out of 6 systolic murmur) GI/Abdominal Exam: Normal Bowel Sounds, Soft, No Distention, Other (Obese) (Male) Exam: Deferred Back Exam: Normal Inspection, Full Range of Motion Extremities: Normal Inspection, No Pedal Edema Skin: Warm, Dry, Intact Neurological: No New Focal Deficit (More alert today) Psy/Mental Status: Alert, Normal Affect Sepsis Event Note - Evaluation Sepsis Screening Result: No Definite Risk - Focused Exam Vital Signs: Vital Signs Temp Temp Pulse Resp BP Pulse Ox Pulse Ox 03/11/20 06:26 95 03/11/20 05:06 37.3 C 03/11/20 04:55 37.3 C 59 L 139/101 H 97 03/11/20 04:00 37.3 C 03/10/20 23:09 37.2 C 61 24 H 119/100 H 96 03/10/20 21:54 66 107/75 03/10/20 20:08 36.3 C 73 20 113/64 96 - Problem List & Annotations (1) UTI, Urinary tract infectious disease SNOMED Code(s): 33764307 Code(s): N39.0 - URINARY TRACT INFECTION, SITE NOT SPECIFIED Status: Acute Priority: High Current Visit: Yes (2) Bacteremia due to Enterococcus SNOMED Code(s): 631965230358, 937394559049 Code(s): R78.81 - BACTEREMIA; B95.2 - ENTEROCOCCUS THE CAUSE OF DISEASES CLASSIFIED ELSEWHERE Status: Acute Priority: High Current Visit: Yes (3) Febrile illness SNOMED Code(s): 438731729 Code(s): R50.9 - FEVER, UNSPECIFIED Status: Acute Priority: High Current Visit: Yes (4) Chronic renal insufficiency SNOMED Code(s): 200043064 Code(s): N18.9 - CHRONIC KIDNEY DISEASE, UNSPECIFIED Status: Acute Priority: Medium Current Visit: Yes Qualifiers: Chronic kidney disease stage: stage 3 (moderate) (5) Khanna catheter problem SNOMED Code(s): 610629009 Code(s): T83.9XXA - UNSP COMPLICATION OF GENITOURINARY PROSTH DEV/GRFT, INIT Status: Acute Priority: Medium Current Visit: Yes Qualifiers: Encounter type: subsequent encounter Qualified Code(s): T83.9XXD - Unspecified complication of genitourinary prosthetic device, implant and graft, subsequent encounter (6) Diabetes mellitus type 2 in obese SNOMED Code(s): 20426354 Code(s): E11.69 - TYPE 2 DIABETES MELLITUS WITH OTHER SPECIFIED COMPLICATION; E66.9 - OBESITY, UNSPECIFIED Status: Chronic Priority: Medium Current Visit: Yes (7) Hypocalcemia SNOMED Code(s): 5653911 Code(s): E83.51 - HYPOCALCEMIA Status: Acute Priority: High Current Visit: Yes (8) Hypomagnesemia SNOMED Code(s): 956263788 Code(s): E83.42 - HYPOMAGNESEMIA Status: Acute Priority: High Current Visit: Yes (9) Anemia SNOMED Code(s): 895802891 Code(s): D64.9 - ANEMIA, UNSPECIFIED Status: Acute Priority: High Current Visit: Yes Qualifiers: Anemia type: unspecified type Qualified Code(s): D64.9 - Anemia, unspecified - Problem List Review Problem List Initiated/Reviewed/Updated: Yes - My Orders Last 24 Hours: My Active Orders 03/10/20 08:30 Pantoprazole [ProTONIX] 40 mg PO DAILY@0700 03/10/20 09:00 Colestipol 0 gm PO BID Finasteride [Proscar] 5 mg PO DAILY Furosemide [Lasix] 20 mg PO TID Metoprolol Tartrate [Lopressor] 50 mg PO BID Oxybutynin [Oxybutynin ER] 10 mg PO DAILY Potassium Chloride [Klor-Con 10] 10 meq PO DAILY Tamsulosin [Flomax] 0.8 mg PO DAILY 03/10/20 09:45 Linezolid [Zyvox] 600 mg Premix Bag 1 bag IV Q12H 03/10/20 12:12 Consult to Speech Language Pathology [OBSTETRICS GYN Evaluation and Treatment] [CONS] Routine 03/10/20 Dinner [employer] [employer] Diet [DIET] Heart Healthy Diet [DIET] 03/11/20 06:00 Levothyroxine [Synthroid] 50 mcg PO ACBREAKFAST - Assessment Assessment:: 03/10/2020 The patient's blood cultures did come back positive for likely Enterococcus. The patient's Rocephin has been discontinued and after review of antibiogram the patient was placed on IV linezolid. The patient also has been noted to have a drop in his hemoglobin and this will be monitored and if the patient does drop below 7.0 g/dL will consider transfusion. Patient does have an indwelling catheter which is likely the source of the infection. The patient will need to follow-up with his urologist as he has recently had surgery to help correct what sounds like phimosis. The patient will be continued on the ADA diet. He is on insulin sliding scale. Patient's vital signs will be monitored and his antihypertensive medications adjusted as necessary. Repeat laboratory studies have also been ordered. PT OT has also been ordered. The patient might likely need to have placement. - Plan Plan:: Patient is an 89-year-old gentleman who has been admitted to acute hospitalization for urinary tract infection. Patient has also been febrile. The patient has 3 out of 4 bottles for blood culture positive for gram-positive cocci. The patient is being treated empirically with Rocephin until culture and sensitivities have returned and then antibiotics will be adjusted accordingly. He also has multiple metabolic abnormalities and these will be corrected. The patient does have diabetes mellitus type 2 and he will be kept on Accu-Cheks before meals and at bedtime along with sliding scale insulin. Patient will also have Khanna catheter management. Is been noted that the patient's previous urinalysis did show severe hematuria is current urine has been essentially clear. 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 PT OT has also been ordered for the patient. The major concern is that the patient lives alone in an assisted living center and may need to have greater care. Repeat laboratory studies have been ordered. 03/11/2020 The patient is an 89-year-old gentleman who went admitted to acute hospitalization was confused and febrile. He is much improved today. The patient has gram-positive cocci in his blood cultures and he is currently being treated with Zyvox as the presumptive organism is likely Enterococcus faecalis. This will be continued. The patient will continue on his current diet as tolerated. PT OT will be working with the patient. The patient's chronic indwelling catheter will be monitored. I am concerned that the patient may be at risk for bleeding with chemical DVT prophylaxis and he is at fall risk for SCDs. The FELIX hose will be continued for him. Repeat laboratory studies have been ordered. Patient should be appropriate for discharge in 2 to 3 days.
[2020-03-11] MEDS: Pantoprazole 40 MG Tab.CR PO SCH (08:28)
[2020-03-11] MEDS: Insulin Lispro 100 Units/ML 3 ML Vial SUBCUT SCH ×4 (08:29→21:37)
[2020-03-11] MEDS: Metoprolol Tartrate 50 MG Tab PO SCH ×2 (08:45→21:47)
[2020-03-11] MEDS: Tamsulosin 0.4 MG Cap.ER PO SCH (08:47)
[2020-03-11] MEDS: Potassium Chloride 10 MEQ Tab.ER PO SCH (08:47)
[2020-03-11] MEDS: Finasteride 5 MG Tab PO SCH (08:47)
[2020-03-11] MEDS: Oxybutynin 5 MG Tab.ER PO SCH (08:47)
[2020-03-11] MEDS: Furosemide 20 MG Tab PO SCH ×3 (08:47→21:47)
[2020-03-11] MEDS: Linezolid 600 MG in Premix Bag 1 BAG IV SCH ×2 (08:49→21:42)
[2020-03-11] MEDS: COLESTIPOL 1 GM PO SCH ×2 (08:55→21:48)
[2020-03-11] MEDS ORDERED: Magnesium Sulfate/Water 2 GM/50 ML BAG IV ONE (11:09)
[2020-03-11] MEDS ORDERED: Potassium Chloride 20 MEQ Tab.ER PO ONE (11:09)
[2020-03-12] MEDS: Sodium Chloride 0.9% 1,000 ML IV SCH (07:03)
[2020-03-12] MEDS: Levothyroxine 50 MCG Tab PO SCH (07:04)
[2020-03-12] MEDS: Pantoprazole 40 MG Tab.CR PO SCH (07:04)
[2020-03-12] MEDS: Linezolid 600 MG in Premix Bag 1 BAG IV SCH (09:08)
[2020-03-12] MEDS: Potassium Chloride 10 MEQ Tab.ER PO SCH (09:09)
[2020-03-12] MEDS: Finasteride 5 MG Tab PO SCH (09:09)
[2020-03-12] MEDS: Furosemide 20 MG Tab PO SCH ×3 (09:09→21:16)
[2020-03-12] MEDS: Oxybutynin 5 MG Tab.ER PO SCH (09:09)
[2020-03-12] MEDS: Insulin Lispro 100 Units/ML 3 ML Vial SUBCUT SCH ×4 (09:11→21:16)
[2020-03-12] MEDS: Tamsulosin 0.4 MG Cap.ER PO SCH (09:11)
[2020-03-12] MEDS: COLESTIPOL 1 GM PO SCH ×2 (09:15→21:16)
[2020-03-12] MEDS: Metoprolol Tartrate 50 MG Tab PO SCH ×2 (09:17→21:15)
[2020-03-12] MEDS: Penicillin G Potassium 3 MILLUNITS in Sodium Chloride 0.9% 100 ML IV SCH ×3 (12:24→21:14)
[2020-03-12] MEDS: Potassium Chloride 10 MEQ in Premix Bag 1 BAG IV SCH ×4 (12:24→16:10)
[2020-03-12] MEDS ORDERED: Magnesium Sulfate/Water 2 GM/50 ML BAG IV ONE (13:41)
--- NOTE | 2020-03-12 19:35 | PCM.PN ---
- General Info Date of Service: 03/12/20 Admission Dx/Problem (Free Text): Admission Diagnosis/Problem Admission Diagnosis/Problem Urinary tract infection Subjective Update: The patient is an 84-year-old gentleman who had been admitted after having had a possible urinary tract infection. Blood cultures did grow out Enterococcus faecalis that is sensitive to penicillin. He is feeling better. Appetite is good. Functional Status: Reports: Pain Controlled - Review of Systems General: Denies: Fever HEENT: Reports: No Symptoms Pulmonary: Reports: No Symptoms Cardiovascular: Reports: No Symptoms Gastrointestinal: Reports: No Symptoms Genitourinary: Reports: No Symptoms Musculoskeletal: Reports: No Symptoms Skin: Reports: No Symptoms Neurological: Reports: No Symptoms - Patient Data Vitals - Most Recent: Last Vital Signs Temp 98.1 F 03/12/20 11:44 Pulse 63 03/12/20 12:32 Resp 20 03/12/20 11:44 BP 119/79 03/12/20 11:44 Pulse Ox 89 L 03/12/20 17:02 Weight - Most Recent: 118.524 kg I&O - Last 24 Hours: Intake & Output 03/12/20 03/12/20 03/12/20 06:59 14:59 22:59 Intake Total 2750 360 930 Output Total 430 2059 Balance 2320 360 -1129 Lab Results Last 24 Hours: Laboratory Results - last 24 hr 03/11/20 03/12/20 03/12/20 Range/Units 21:34 06:28 06:28 WBC 3.47 L (4.23-9.07) K/mm3 RBC 2.79 L (4.63-6.08) M/mm3 Hgb 8.1 L (13.7-17.5) gm/dl Hct 25.5 L (40.1-51.0) % MCV 91.4 (79.0-92.2) fl MCH 29.0 (25.7-32.2) pg MCHC 31.8 L (32.2-35.5) g/dl RDW Std Deviation 41.4 (35.1-43.9) fL Plt Count 119 L (163-337) K/mm3 MPV 10.5 (9.4-12.3) fl Neut % (Auto) 55.0 (34.0-67.9) % Lymph % (Auto) 32.0 (21.8-53.1) % [place] % (Auto) 9.8 (5.3-12.2) % Eos % (Auto) 2.6 (0.8-7.0) Baso % (Auto) 0.3 (0.1-1.2) % Neut # (Auto) 1.91 (1.78-5.38) K/mm3 Lymph # (Auto) 1.11 L (1.32-3.57) K/mm3 [place] # (Auto) 0.34 (0.30-0.82) K/mm3 Eos # (Auto) 0.09 (0.04-0.54) K/mm3 Baso # (Auto) 0.01 (0.01-0.08) K/mm3 Manual Slide Review Not Reportable Sodium 139 (136-145) mEq/L Potassium 2.7 L (3.5-5.1) mEq/L Chloride 102 (98-107) mEq/L Carbon Dioxide 27 (21-32) mEq/L Anion Gap 12.7 (5-15) BUN 9 (7-18) mg/dL Creatinine 1.1 (0.7-1.3) mg/dL Est Cr Clr Drug Dosing 46.74 mL/min Estimated GFR (MDRD) > 60 (>60) mL/min BUN/Creatinine Ratio 8.2 L (14-18) Glucose 167 H (83-115) mg/dL POC Glucose 210 H (83-110) mg/dL Calcium 7.5 L (8.5-10.1) mg/dL Phosphorus 2.2 L (2.6-4.7) mg/dL Magnesium 1.7 L (1.8-2.4) mg/dl C-Reactive Protein 25.4 H* (<1.0) mg/dL SARS-CoV-2 RNA (VICKY) (NEGATIVE) 03/12/20 03/12/20 03/12/20 Range/Units 06:51 10:30 11:47 WBC (4.23-9.07) K/mm3 RBC (4.63-6.08) M/mm3 Hgb (13.7-17.5) gm/dl Hct (40.1-51.0) % MCV (79.0-92.2) fl MCH (25.7-32.2) pg MCHC (32.2-35.5) g/dl RDW Std Deviation (35.1-43.9) fL Plt Count (163-337) K/mm3 MPV (9.4-12.3) fl Neut % (Auto) (34.0-67.9) % Lymph % (Auto) (21.8-53.1) % [place] % (Auto) (5.3-12.2) % Eos % (Auto) (0.8-7.0) Baso % (Auto) (0.1-1.2) % Neut # (Auto) (1.78-5.38) K/mm3 Lymph # (Auto) (1.32-3.57) K/mm3 [place] # (Auto) (0.30-0.82) K/mm3 Eos # (Auto) (0.04-0.54) K/mm3 Baso # (Auto) (0.01-0.08) K/mm3 Manual Slide Review Sodium (136-145) mEq/L Potassium (3.5-5.1) mEq/L Chloride (98-107) mEq/L Carbon Dioxide (21-32) mEq/L Anion Gap (5-15) BUN (7-18) mg/dL Creatinine (0.7-1.3) mg/dL Est Cr Clr Drug Dosing mL/min Estimated GFR (MDRD) (>60) mL/min BUN/Creatinine Ratio (14-18) Glucose (83-115) mg/dL POC Glucose 165 H 299 H (83-110) mg/dL Calcium (8.5-10.1) mg/dL Phosphorus (2.6-4.7) mg/dL Magnesium (1.8-2.4) mg/dl C-Reactive Protein (<1.0) mg/dL SARS-CoV-2 RNA (VICKY) Negative (NEGATIVE) Driss Results Last 24 Hours: Microbiology 03/08/20 17:30 Aerobic Blood Culture - Preliminary Blood - Venous - Lab Draw NO GROWTH AFTER 4 DAYS Anaerobic Blood Culture - Final Enterococcus Faecalis 03/08/20 17:10 Aerobic Blood Culture - Final Blood - Venous Enterococcus Faecalis Anaerobic Blood Culture - Final Enterococcus Faecalis 03/08/20 18:12 Catheter Tip Culture - Final Catheter Tip Other - Khanna Catheter Enterococcus Faecalis Staphylococcus Coagulase Neg Med Orders - Current: Current Medications Acetaminophen (Tylenol) 650 mg PO Q4H PRN PRN Reason: Fever Last Admin: 03/11/20 05:06 Dose: 650 mg Documented by: Dextrose/Water (Dextrose 50% In Water) 50 ml IVPUSH ASDIRECTED PRN PRN Reason: Hypoglycemia Finasteride (Proscar) 5 mg PO DAILY [facility] Last Admin: 03/12/20 09:09 Dose: 5 mg Documented by: Furosemide (Lasix) 20 mg PO TID [facility] Last Admin: 03/12/20 14:58 Dose: 20 mg Documented by: Penicillin G Potassium 3 (millunits/ Sodium Chloride) 100 mls @ 66.667 mls/hr IV Q4H [facility] Last Admin: 03/12/20 17:21 Dose: 66.667 mls/hr Documented by: Insulin Human Lispro (Humalog) 0 unit SUBCUT QIDACANDBED [facility]; Protocol Last Admin: 03/12/20 17:21 Dose: 3 unit Documented by: Levothyroxine Sodium (Synthroid) 50 mcg PO ACBREAKFAST [facility] Last Admin: 03/12/20 07:04 Dose: 50 mcg Documented by: Metoprolol Tartrate (Lopressor) 50 mg PO BID [facility] Last Admin: 03/12/20 09:17 Dose: 50 mg Documented by: Colestipol 1 Gm - Pt ('s Own Med) 0 gm PO BID [facility] Last Admin: 03/12/20 09:15 Dose: Not Given Documented by: Oxybutynin Chloride (Oxybutynin Er) 10 mg PO DAILY [facility] Last Admin: 03/12/20 09:09 Dose: 10 mg Documented by: Oxycodone HCl (Oxycodone) 5 mg PO Q4H PRN PRN Reason: Pain (moderate 4-6) Pantoprazole Sodium (Protonix) 40 mg PO DAILY@0700 [facility] Last Admin: 03/12/20 07:04 Dose: 40 mg Documented by: Potassium Chloride (Klor-Con 10) 10 meq PO DAILY [facility] Last Admin: 03/12/20 09:09 Dose: 10 meq Documented by: Potassium Chloride (Klor-Con M20) 40 meq PO ONETIME ONE Stop: 03/12/20 21:01 Sodium Chloride (Saline Flush) 10 ml FLUSH ASDIRECTED PRN PRN Reason: Keep Vein Open Last Admin: 03/08/20 16:49 Dose: 10 ml Documented by: Tamsulosin HCl (Flomax) 0.8 mg PO DAILY [facility] Last Admin: 03/12/20 09:11 Dose: 0.8 mg Documented by: Temazepam (Restoril) 15 mg PO BEDTIME PRN PRN Reason: Sleep Discontinued Medications Acetaminophen (Tylenol) 975 mg PO NOW ONE Stop: 03/08/20 16:50 Last Admin: 03/08/20 17:31 Dose: 975 mg Documented by: Calcium Gluconate (Calcium Gluconate) 1 gm IVPUSH ONETIME ONE Stop: 03/10/20 09:51 Last Admin: 03/10/20 10:14 Dose: 1 gm Documented by: Sodium Chloride (Normal Saline) 1,000 mls @ 999 mls/hr IV NOW STA Stop: 03/08/20 18:34 Last Infusion: 03/08/20 18:43 Dose: 150 mls/hr Documented by: Ceftriaxone Sodium 2 gm/ (Sodium Chloride) 100 mls @ 200 mls/hr IV Q24H [facility] Last Admin: 03/09/20 18:22 Dose: 200 mls/hr Documented by: Sodium Chloride (Normal Saline) 100 mls @ 4 mls/sec IV ONETIME ONE Stop: 03/08/20 19:43 Sodium Chloride (Normal Saline) 1,000 mls @ 150 mls/hr IV ASDIRECTED [facility] Last Admin: 03/09/20 11:13 Dose: 150 mls/hr Documented by: Sodium Chloride (Normal Saline) 1,000 mls @ 125 mls/hr IV ASDIRECTED [facility] Last Admin: 03/12/20 07:03 Dose: 125 mls/hr Documented by: Linezolid 600 mg/ Premix 300 mls @ 300 mls/hr IV Q12H [facility] Last Admin: 03/12/20 09:08 Dose: 300 mls/hr Documented by: Magnesium Sulfate (Magnesium Sulfate In Water Premix) 2 gm in 50 mls @ 25 mls/hr IV ONETIME ONE Stop: 03/10/20 11:47 Last Admin: 03/10/20 10:21 Dose: 25 mls/hr Documented by: Magnesium Sulfate (Magnesium Sulfate In Water Premix) 2 gm in 50 mls @ 25 mls/hr IV ONETIME ONE Stop: 03/11/20 13:08 Last Admin: 03/11/20 11:53 Dose: 25 mls/hr Documented by: Potassium Chloride 10 meq/ (Premix) 100 mls @ 100 mls/hr IV Q1H [facility] Stop: 03/12/20 15:14 Last Admin: 03/12/20 16:10 Dose: 100 mls/hr Documented by: Magnesium Sulfate (Magnesium Sulfate In Water Premix) 2 gm in 50 mls @ 25 mls/hr IV ONETIME ONE Stop: 03/12/20 15:40 Last Admin: 03/12/20 14:58 Dose: 25 mls/hr Documented by: Iopamidol (Isovue-370 (76%)) 100 ml IVPUSH ONETIME ONE Stop: 03/08/20 19:43 Last Admin: 03/08/20 19:43 Dose: 100 ml Documented by: Magnesium Hydroxide (Milk Of Magnesia) 30 ml PO ONETIME ONE Stop: 03/10/20 06:01 Last Admin: 03/10/20 06:30 Dose: 30 ml Documented by: Ondansetron HCl (Zofran) 4 mg IVPUSH ONETIME ONE Stop: 03/08/20 16:58 Last Admin: 03/08/20 17:30 Dose: 4 mg Documented by: Potassium Chloride (Klor-Con M20) 20 meq PO ONETIME ONE Stop: 03/11/20 11:10 Last Admin: 03/11/20 11:50 Dose: 20 meq Documented by: - Exam Quality Assessment: No: Supplemental Oxygen General: Alert, Oriented HEENT: Pupils Equal, Mucous Membr. Moist/[place] Neck: Supple Lungs: Clear to Auscultation, Normal Respiratory Effort Cardiovascular: Regular Rate, Regular Rhythm GI/Abdominal Exam: Normal Bowel Sounds, Soft, Non-Tender, No Distention, No Mass Extremities: Normal Inspection, Normal Range of Motion, Non-Tender, No Pedal Edema, Normal Capillary Refill Skin: Warm, Dry, Intact Psy/Mental Status: Alert, Normal Affect, Normal Mood Sepsis Event Note - Evaluation Sepsis Screening Result: Possible Sepsis Risk - Focused Exam Vital Signs: Vital Signs Temp Pulse Resp BP Pulse Ox Pulse Ox 03/12/20 17:02 89 L 03/12/20 12:32 63 91 L 03/12/20 11:44 98.1 F 75 20 119/79 99 03/12/20 09:17 97.9 F 75 143/65 H 94 L 03/12/20 08:18 61 16 124/54 L 94 L 03/12/20 08:14 86 L - Problem List & Annotations (1) Anemia SNOMED Code(s): 881491335 Code(s): D64.9 - ANEMIA, UNSPECIFIED Status: Acute Priority: High Current Visit: Yes Qualifiers: Anemia type: unspecified type Qualified Code(s): D64.9 - Anemia, unspecified (2) Bacteremia due to Enterococcus SNOMED Code(s): 398721452711, 018118203127 Code(s): R78.81 - BACTEREMIA; B95.2 - ENTEROCOCCUS THE CAUSE OF DISEASES CLASSIFIED ELSEWHERE Status: Acute Priority: High Current Visit: Yes (3) Chronic renal insufficiency SNOMED Code(s): 573463133 Code(s): N18.9 - CHRONIC KIDNEY DISEASE, UNSPECIFIED Status: Acute Priority: Medium Current Visit: Yes Qualifiers: Chronic kidney disease stage: stage 3 (moderate) (4) Hypomagnesemia SNOMED Code(s): 798303469 Code(s): E83.42 - HYPOMAGNESEMIA Status: Acute Priority: High Current Visit: Yes (5) UTI, Urinary tract infectious disease SNOMED Code(s): 33581515 Code(s): N39.0 - URINARY TRACT INFECTION, SITE NOT SPECIFIED Status: Acute Priority: High Current Visit: Yes (6) Diabetes mellitus type 2 in obese SNOMED Code(s): 77162395 Code(s): E11.69 - TYPE 2 DIABETES MELLITUS WITH OTHER SPECIFIED COMPLICATION; E66.9 - OBESITY, UNSPECIFIED Status: Chronic Priority: Medium Current Visit: Yes (7) Hypokalemia SNOMED Code(s): 83551054 Code(s): E87.6 - HYPOKALEMIA Status: Acute Current Visit: No - Problem List Review Problem List Initiated/Reviewed/Updated: Yes - My Orders Last 24 Hours: My Active Orders 03/12/20 12:00 Penicillin G Potassium [Pfizerpen] 3 millunits Sodium Chloride 0.9% [Normal Saline] 100 ml IV Q4H 03/12/20 21:00 Potassium Chloride [Klor-Con M20] 40 meq PO ONETIME ONE - Assessment Assessment:: 03/10/2020 The patient's blood cultures did come back positive for likely Enterococcus. The patient's Rocephin has been discontinued and after review of antibiogram the patient was placed on IV linezolid. The patient also has been noted to have a drop in his hemoglobin and this will be monitored and if the patient does drop below 7.0 g/dL will consider transfusion. 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 The patient will need to follow-up with his urologist as he has recently had surgery to help correct what sounds like phimosis. The patient will be continued on the ADA diet. He is on insulin sliding scale. Patient's vital signs will be monitored and his antihypertensive medications adjusted as necessary. Repeat laboratory studies have also been ordered. PT OT has also been ordered. The patient might likely need to have placement. - Plan Plan:: Patient is an 89-year-old gentleman who has been admitted to acute hospitalization for urinary tract infection. Patient has also been febrile. The patient has 3 out of 4 bottles for blood culture positive for gram-positive cocci. The patient is being treated empirically with Rocephin until culture and sensitivities have returned and then antibiotics will be adjusted accordingly. He also has multiple metabolic abnormalities and these will be corrected. The patient does have diabetes mellitus type 2 and he will be kept on Accu-Cheks before meals and at bedtime along with sliding scale insulin. Patient will also have Khanna catheter management. Is been noted that the patient's previous urinalysis did show severe hematuria is current urine has been essentially clear. 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 PT OT has also been ordered for the patient. The major concern is that the patient lives alone in an assisted living center and may need to have greater care. Repeat laboratory studies have been ordered. 03/11/2020 The patient is an 89-year-old gentleman who went admitted to acute h ospitalization was confused and febrile. He is much improved today. The patient has gram-positive cocci in his blood cultures and he is currently being treated with Zyvox as the presumptive organism is likely Enterococcus faecalis. This will be continued. The patient will continue on his current diet as tolerated. PT OT will be working with the patient. The patient's chronic indwelling catheter will be monitored. I am concerned that the patient may be at risk for bleeding with chemical DVT prophylaxis and he is at fall risk for SCDs. The FELIX hose will be continued for him. Repeat laboratory studies have been ordered. Patient should be appropriate for discharge in 2 to 3 days. 03/12/2020 Sharan is improving. He is less confused today. His WBC has increased to 3.43. Potassium has decreased to 2.7. CRP is currently 25.4. Magnesium is slightly low at 1.7 and phosphorus is low at 2.2. Hemoglobin is down to 8.1. Patient has approximately 3500 mL positive fluid balance with a 2 kg weight gain likely delusional secondary to IV fluids. He has been on linezolid for 2 days. Blood cultures have grown out Enterococcus faecalis sensitive to penicillin. Echocardiogram was ordered for today. He has been afebrile for the last 3 days. Plan Switch patient to penicillin G 3,000,000 units every 4 hours. Repeat blood cultures tomorrow. Await echocardiogram results. Replace potassium and magnesium. Recheck labs in the morning to include CBC, CMP, CRP, magnesium, phosphorus
[2020-03-12] MEDS ORDERED: Potassium Chloride 20 MEQ Tab.ER PO ONE (21:00)
[2020-03-13] MEDS: Penicillin G Potassium 3 MILLUNITS in Sodium Chloride 0.9% 100 ML IV SCH ×6 (01:24→22:28)
[2020-03-13] MEDS: Pantoprazole 40 MG Tab.CR PO SCH (06:11)
[2020-03-13] MEDS: Levothyroxine 50 MCG Tab PO SCH (06:11)
[2020-03-13] MEDS: Insulin Lispro 100 Units/ML 3 ML Vial SUBCUT SCH ×4 (07:46→22:33)
[2020-03-13] MEDS: Potassium Chloride 10 MEQ Tab.ER PO SCH (08:02)
[2020-03-13] MEDS: Oxybutynin 5 MG Tab.ER PO SCH (08:02)
[2020-03-13] MEDS: Furosemide 20 MG Tab PO SCH ×4 (08:03→22:30)
[2020-03-13] MEDS: Metoprolol Tartrate 50 MG Tab PO SCH ×2 (08:03→22:30)
[2020-03-13] MEDS: Tamsulosin 0.4 MG Cap.ER PO SCH (08:03)
[2020-03-13] MEDS: Finasteride 5 MG Tab PO SCH (08:03)
[2020-03-13] MEDS: COLESTIPOL 1 GM PO SCH ×2 (08:04→23:22)
[2020-03-13] MEDS ORDERED: Magnesium Sulfate/Water 2 GM in Premix Bag 1 BAG IV ONE (08:30)
[2020-03-13] MEDS: Potassium Chloride 20 MEQ Tab.ER PO SCH ×2 (09:04→22:29)
--- NOTE | 2020-03-13 12:49 | PCM.PN ---
- General Info Date of Service: 03/13/20 Admission Dx/Problem (Free Text): Admission Diagnosis/Problem Admission Diagnosis/Problem Urinary tract infection Subjective Update: Patient continues with slow and steady improvement. Echocardiogram returned with no endocarditis identified. He continues to be afebrile. Patient 800% of his breakfast and lunch and only 25% of his dinner. No significant weight change. Functional Status: Reports: Pain Controlled - Review of Systems General: Reports: Fatigue HEENT: Reports: No Symptoms Pulmonary: Reports: No Symptoms Cardiovascular: Reports: No Symptoms Gastrointestinal: Reports: No Symptoms Musculoskeletal: Reports: No Symptoms Psychiatric: Reports: No Symptoms - Patient Data Vitals - Most Recent: Last Vital Signs Temp 98.4 F 03/13/20 07:54 Pulse 67 03/13/20 08:03 Resp 20 03/13/20 07:54 BP 132/87 03/13/20 08:03 Pulse Ox 93 L 03/13/20 08:17 Weight - Most Recent: 117.934 kg I&O - Last 24 Hours: Intake & Output 03/12/20 03/13/20 03/13/20 22:59 06:59 14:59 Intake Total 2780 900 240 Output Total 2059 4800 Balance 721 -3900 240 Lab Results Last 24 Hours: Laboratory Results - last 24 hr 03/13/20 03/13/20 Range/Units 04:53 04:53 WBC 3.85 L (4.23-9.07) K/mm3 RBC 2.93 L (4.63-6.08) M/mm3 Hgb 8.4 L (13.7-17.5) gm/dl Hct 26.9 L (40.1-51.0) % MCV 91.8 (79.0-92.2) fl MCH 28.7 (25.7-32.2) pg MCHC 31.2 L (32.2-35.5) g/dl RDW Std Deviation 41.2 (35.1-43.9) fL Plt Count 148 L (163-337) K/mm3 MPV 10.7 (9.4-12.3) fl Neut % (Auto) 54.7 (34.0-67.9) % Lymph % (Auto) 33.8 (21.8-53.1) % [place] % (Auto) 8.1 (5.3-12.2) % Eos % (Auto) 2.6 (0.8-7.0) Baso % (Auto) 0.3 (0.1-1.2) % Neut # (Auto) 2.11 (1.78-5.38) K/mm3 Lymph # (Auto) 1.30 L (1.32-3.57) K/mm3 [place] # (Auto) 0.31 (0.30-0.82) K/mm3 Eos # (Auto) 0.10 (0.04-0.54) K/mm3 Baso # (Auto) 0.01 (0.01-0.08) K/mm3 Sodium 140 (136-145) mEq/L Potassium 3.0 L (3.5-5.1) mEq/L Chloride 102 (98-107) mEq/L Carbon Dioxide 27 (21-32) mEq/L Anion Gap 14.0 (5-15) BUN 8 (7-18) mg/dL Creatinine 1.1 (0.7-1.3) mg/dL Est Cr Clr Drug Dosing 46.74 mL/min Estimated GFR (MDRD) > 60 (>60) mL/min BUN/Creatinine Ratio 7.3 L (14-18) Glucose 190 H (83-115) mg/dL Calcium 7.8 L (8.5-10.1) mg/dL Phosphorus 2.2 L (2.6-4.7) mg/dL Magnesium 1.8 (1.8-2.4) mg/dl Total Bilirubin 0.4 (0.2-1.0) mg/dL AST 18 (15-37) U/L ALT 21 (16-63) U/L Alkaline Phosphatase 88 (46-116) U/L C-Reactive Protein 21.4 H* (<1.0) mg/dL Total Protein 6.1 L (6.4-8.2) g/dl Albumin 2.1 L (3.4-5.0) g/dl Globulin 4.0 gm/dL Albumin/Globulin Ratio 0.5 L (1-2) Driss Results Last 24 Hours: Microbiology 03/08/20 17:30 Aerobic Blood Culture - Preliminary Blood - Venous - Lab Draw NO GROWTH AFTER 4 DAYS Anaerobic Blood Culture - Final Enterococcus Faecalis 03/08/20 17:10 Aerobic Blood Culture - Final Blood - Venous Enterococcus Faecalis Anaerobic Blood Culture - Final Enterococcus Faecalis 03/08/20 18:12 Catheter Tip Culture - Final Catheter Tip Other - Khanna Catheter Enterococcus Faecalis Staphylococcus Coagulase Neg Med Orders - Current: Current Medications Acetaminophen (Tylenol) 650 mg PO Q4H PRN PRN Reason: Fever Last Admin: 03/11/20 05:06 Dose: 650 mg Documented by: Dextrose/Water (Dextrose 50% In Water) 50 ml IVPUSH ASDIRECTED PRN PRN Reason: Hypoglycemia Finasteride (Proscar) 5 mg PO DAILY [facility] Last Admin: 03/13/20 08:03 Dose: 5 mg Documented by: Furosemide (Lasix) 20 mg PO TID [facility] Last Admin: 03/13/20 08:03 Dose: 20 mg Documented by: Penicillin G Potassium 3 (millunits/ Sodium Chloride) 100 mls @ 66.667 mls/hr IV Q4H [facility] Last Admin: 03/13/20 11:35 Dose: 66.667 mls/hr Documented by: Insulin Human Lispro (Humalog) 0 unit SUBCUT QIDACANDBED [facility]; Protocol Last Admin: 03/13/20 11:34 Dose: 4 unit Documented by: Levothyroxine Sodium (Synthroid) 50 mcg PO ACBREAKFAST [facility] Last Admin: 03/13/20 06:11 Dose: 50 mcg Documented by: Metoprolol Tartrate (Lopressor) 50 mg PO BID [facility] Last Admin: 03/13/20 08:03 Dose: 50 mg Documented by: Colestipol 1 Gm - Pt ('s Own Med) 0 gm PO BID [facility] Last Admin: 03/13/20 08:04 Dose: Not Given Documented by: Oxybutynin Chloride (Oxybutynin Er) 10 mg PO DAILY [facility] Last Admin: 03/13/20 08:02 Dose: 10 mg Documented by: Oxycodone HCl (Oxycodone) 5 mg PO Q4H PRN PRN Reason: Pain (moderate 4-6) Pantoprazole Sodium (Protonix) 40 mg PO DAILY@0700 [facility] Last Admin: 03/13/20 06:11 Dose: 40 mg Documented by: Potassium Chloride (Klor-Con 10) 10 meq PO DAILY [facility] Last Admin: 03/13/20 08:02 Dose: 10 meq Documented by: Potassium Chloride (Klor-Con M20) 40 meq PO BID [facility] Stop: 03/13/20 21:01 Last Admin: 03/13/20 09:04 Dose: 40 meq Documented by: Sodium Chloride (Saline Flush) 10 ml FLUSH ASDIRECTED PRN PRN Reason: Keep Vein Open Last Admin: 03/08/20 16:49 Dose: 10 ml Documented by: Tamsulosin HCl (Flomax) 0.8 mg PO DAILY [facility] Last Admin: 03/13/20 08:03 Dose: 0.8 mg Documented by: Temazepam (Restoril) 15 mg PO BEDTIME PRN PRN Reason: Sleep Discontinued Medications Acetaminophen (Tylenol) 975 mg PO NOW ONE Stop: 03/08/20 16:50 Last Admin: 03/08/20 17:31 Dose: 975 mg Documented by: Calcium Gluconate (Calcium Gluconate) 1 gm IVPUSH ONETIME ONE Stop: 03/10/20 09:51 Last Admin: 03/10/20 10:14 Dose: 1 gm Documented by: Sodium Chloride (Normal Saline) 1,000 mls @ 999 mls/hr IV NOW STA Stop: 03/08/20 18:34 Last Infusion: 03/08/20 18:43 Dose: 150 mls/hr Documented by: Ceftriaxone Sodium 2 gm/ (Sodium Chloride) 100 mls @ 200 mls/hr IV Q24H [facility] Last Admin: 03/09/20 18:22 Dose: 200 mls/hr Documented by: Sodium Chloride (Normal Saline) 100 mls @ 4 mls/sec IV ONETIME ONE Stop: 03/08/20 19:43 Last Admin: 03/12/20 20:47 Dose: Not Given Documented by: Sodium Chloride (Normal Saline) 1,000 mls @ 150 mls/hr IV ASDIRECTED [facility] Last Admin: 03/09/20 11:13 Dose: 150 mls/hr Documented by: Sodium Chloride (Normal Saline) 1,000 mls @ 125 mls/hr IV ASDIRECTED [facility] Last Admin: 03/12/20 07:03 Dose: 125 mls/hr Documented by: Linezolid 600 mg/ Premix 300 mls @ 300 mls/hr IV Q12H [facility] Last Admin: 03/12/20 09:08 Dose: 300 mls/hr Documented by: Magnesium Sulfate (Magnesium Sulfate In Water Premix) 2 gm in 50 mls @ 25 mls /hr IV ONETIME ONE Stop: 03/10/20 11:47 Last Admin: 03/10/20 10:21 Dose: 25 mls/hr Documented by: Magnesium Sulfate (Magnesium Sulfate In Water Premix) 2 gm in 50 mls @ 25 mls/hr IV ONETIME ONE Stop: 03/11/20 13:08 Last Admin: 03/11/20 11:53 Dose: 25 mls/hr Documented by: Potassium Chloride 10 meq/ (Premix) 100 mls @ 100 mls/hr IV Q1H [facility] Stop: 03/12/20 15:14 Last Admin: 03/12/20 16:10 Dose: 100 mls/hr Documented by: Magnesium Sulfate (Magnesium Sulfate In Water Premix) 2 gm in 50 mls @ 25 mls/hr IV ONETIME ONE Stop: 03/12/20 15:40 Last Admin: 03/12/20 14:58 Dose: 25 mls/hr Documented by: Magnesium Sulfate 2 gm/ Premix 50 mls @ 25 mls/hr IV ONETIME ONE Stop: 03/13/20 10:29 Last Admin: 03/13/20 09:04 Dose: 25 mls/hr Documented by: Iopamidol (Isovue-370 (76%)) 100 ml IVPUSH ONETIME ONE Stop: 03/08/20 19:43 Last Admin: 03/08/20 19:43 Dose: 100 ml Documented by: Magnesium Hydroxide (Milk Of Magnesia) 30 ml PO ONETIME ONE Stop: 03/10/20 06:01 Last Admin: 03/10/20 06:30 Dose: 30 ml Documented by: Ondansetron HCl (Zofran) 4 mg IVPUSH ONETIME ONE Stop: 03/08/20 16:58 Last Admin: 03/08/20 17:30 Dose: 4 mg Documented by: Potassium Chloride (Klor-Con M20) 20 meq PO ONETIME ONE Stop: 03/11/20 11:10 Last Admin: 03/11/20 11:50 Dose: 20 meq Documented by: Potassium Chloride (Klor-Con M20) 40 meq PO ONETIME ONE Stop: 03/12/20 21:01 Last Admin: 03/12/20 21:15 Dose: 40 meq Documented by: - Exam Quality Assessment: No: Supplemental Oxygen General: Alert, Oriented HEENT: Pupils Equal, Mucous Membr. Moist/[place] Neck: Supple Lungs: Clear to Auscultation, Normal Respiratory Effort Cardiovascular: Regular Rate, Regular Rhythm GI/Abdominal Exam: Normal Bowel Sounds, Soft, Non-Tender, No Distention Extremities: Normal Inspection, Normal Capillary Refill Skin: Warm, Dry, Intact Neurological: No New Focal Deficit Psy/Mental Status: Alert, Normal Affect, Normal Mood Sepsis Event Note - Evaluation Sepsis Screening Result: No Definite Risk - Focused Exam Vital Signs: Vital Signs Temp Pulse Resp BP Pulse Ox Pulse Ox 03/13/20 08:17 93 L 03/13/20 08:03 67 132/87 03/13/20 08:00 93 L 03/13/20 07:54 98.4 F 67 20 132/87 93 L 03/13/20 03:50 98.8 F 70 16 135/47 L 92 L - Problem List & Annotations (1) Anemia SNOMED Code(s): 871277479 Code(s): D64.9 - ANEMIA, UNSPECIFIED Status: Acute Priority: High Current Visit: Yes Qualifiers: Anemia type: unspecified type Qualified Code(s): D64.9 - Anemia, unspecified (2) Bacteremia due to Enterococcus SNOMED Code(s): 351101310585, 752754453849 Code(s): R78.81 - BACTEREMIA; B95.2 - ENTEROCOCCUS THE CAUSE OF DISEASES CLASSIFIED ELSEWHERE Status: Acute Priority: High Current Visit: Yes (3) Chronic renal insufficiency SNOMED Code(s): 068948005 Code(s): N18.9 - CHRONIC KIDNEY DISEASE, UNSPECIFIED Status: Acute Priority: Medium Current Visit: Yes Qualifiers: Chronic kidney disease stage: stage 3 (moderate) (4) Hypomagnesemia SNOMED Code(s): 983575509 Code(s): E83.42 - HYPOMAGNESEMIA Status: Acute Priority: High Current Visit: Yes (5) UTI, Urinary tract infectious disease SNOMED Code(s): 56656482 Code(s): N39.0 - URINARY TRACT INFECTION, SITE NOT SPECIFIED Status: Acute Priority: High Current Visit: Yes (6) Diabetes mellitus type 2 in obese SNOMED Code(s): 46411976 Code(s): E11.69 - TYPE 2 DIABETES MELLITUS WITH OTHER SPECIFIED COMPLICATION; E66.9 - OBESITY, UNSPECIFIED Status: Chronic Priority: Medium Current Visit: Yes (7) Hypokalemia SNOMED Code(s): 49856868 Code(s): E87.6 - HYPOKALEMIA Status: Acute Current Visit: No - Problem List Review Problem List Initiated/Reviewed/Updated: Yes - My Orders Last 24 Hours: My Active Orders 03/12/20 12:00 Penicillin G Potassium [Pfizerpen] 3 millunits Sodium Chloride 0.9% [Normal Saline] 100 ml IV Q4H 03/13/20 09:00 Potassium Chloride [Klor-Con M20] 40 meq PO BID 03/13/20 10:16 Communication Order [RC] ASDIRECTED 03/13/20 10:24 Blood Culture x2 Reflex Set [OM.PC] Stat 03/13/20 10:58 CULTURE BLOOD [BC] Stat 03/13/20 11:10 CULTURE BLOOD [BC] Stat 03/14/20 05:11 C-REACTIVE PROTEIN [CHEM] AM CBC WITH AUTO DIFF [HEME] AM CMP [COMPREHENSIVE METABOLIC PN,CMP] [CHEM] AM MAGNESIUM [CHEM] AM PHOSPHORUS [CHEM] AM - Assessment Assessment:: 03/10/2020 The patient's blood cultures did come back positive for likely Enterococcus. The patient's Rocephin has been discontinued and after review of antibiogram the patient was placed on IV linezolid. The patient also has been noted to have a drop in his hemoglobin and this will be monitored and if the patient does drop below 7.0 g/dL will consider transfusion. Patient does have an indwelling catheter which is likely the source of the infection. The patient will need to follow-up with his urologist as he has recently had surgery to help correct what sounds like phimosis. The patient will be continued on the ADA diet. He is on insulin sliding scale. Patient's vital signs will be monitored and his antihypertensive medications adjusted as necessary. Repeat laboratory studies have also been ordered. PT OT has also been ordered. The patient might likely need to have placement. - Plan Plan:: Patient is an 89-year-old gentleman who has been admitted to acute hospitalization for urinary tract infection. Patient has also been febrile. The patient has 3 out of 4 bottles for blood culture positive for gram-positive cocci. The patient is being treated empirically with Rocephin until culture and sensitivities have returned and then antibiotics will be adjusted accordingly. He also has multiple metabolic abnormalities and these will be corrected. The patient does have diabetes mellitus type 2 and he will be kept on Accu-Cheks before meals and at bedtime along with sliding scale insulin. Patient will also have Khanna catheter management. Is been noted that the patient's previous urinalysis did show severe hematuria is current urine has been essentially clear. 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 PT OT has also been ordered for the patient. The major concern is that the patient lives alone in an assisted living center and may need to have greater care. Repeat laboratory studies have been ordered. 03/11/2020 The patient is an 89-year-old gentleman who went admitted to acute hospitalization was confused and febrile. He is much improved today. The patient has gram-positive cocci in his blood cultures and he is currently being treated with Zyvox as the presumptive organism is likely Enterococcus faecalis. This will be continued. The patient will continue on his current diet as tolerated. PT OT will be working with the patient. The patient's chronic indwelling catheter will be monitored. I am concerned that the patient may be at risk for bleeding with chemical DVT prophylaxis and he is at fall risk for SCDs. The FELIX hose will be continued for him. Repeat laboratory studies have been ordered. Patient should be appropriate for discharge in 2 to 3 days. 03/12/2020 Sharan is improving. He is less confused today. His WBC has increased to 3.43. Potassium has decreased to 2.7. CRP is currently 25.4. Magnesium is slightly low at 1.7 and phosphorus is low at 2.2. Hemoglobin is down to 8.1. Patient has approximately 3500 mL positive fluid balance with a 2 kg weight gain likely delusional secondary to IV fluids. He has been on linezolid for 2 days. Blood cultures have grown out Enterococcus faecalis sensitive to penicillin. Echocardiogram was ordered for today. He has been afebrile for the last 3 days. Plan Switch patient to penicillin G 3,000,000 units every 4 hours. Repeat blood cultures tomorrow. Await echocardiogram results. Replace potassium and magnesium. Recheck labs in the morning to include CBC, CMP, CRP, magnesium, phosphorus 03/13/2020 Sharan is stable. He is afebrile and his CRP has decreased and his WBC is up to 3.9. Blood cultures positive for Enterococcus faecalis and we switched him to penicillin G yesterday. Appetite is fairly good and echocardiogram showed no endocarditis. Also his left ventricular ejection fraction was 55 to 60% with normal right ventricular systolic function. Potassium is still low, but did come up to 3.0. Blood sugars are appropriate. Plan: Continue patient on penicillin G3 million units every 4 hours. Total of 7 days of antibiotics. Recheck blood cultures today. If blood cultures come back positive consider transfer to tertiary care hospital for [facility]. Continue m onitoring labs as appropriate. Replace potassium and increase his routine morning potassium to 20 mEq in the morning.
--- NOTE | 2020-03-13 14:36 | PCM.SN.2 ---
- Free Text/Narrative Note: Face to Face meeting with pt and or family. Pt has UTI, hypoxia, Khanna catheter problems and chronic renal insufficiency. Pt is in need Home Health Care services for; low activity tolerance, functional mobility, standing balance, strength, transfers. Nursing for vitals, skilled assessment, medication education, disease management. Physical therapy for pt for balance training, gait training, neuromuscular reduction, therapeutic exercises, and transfer training. Occupational therapy for activity tolerance, self-care training, ADLs and t/f training. Pt is currently homebound related to being walker dependent, decreased activity tolerance, and a decreased level of endurance. Pt will be followed by his primary provider, Dr. Jimenes.
[2020-03-14] MEDS: Penicillin G Potassium 3 MILLUNITS in Sodium Chloride 0.9% 100 ML IV SCH ×6 (01:30→20:38)
[2020-03-14] MEDS: Levothyroxine 50 MCG Tab PO SCH ×2 (04:54→06:39)
[2020-03-14] MEDS: Pantoprazole 40 MG Tab.CR PO SCH ×2 (04:54→06:39)
[2020-03-14] MEDS: Insulin Lispro 100 Units/ML 3 ML Vial SUBCUT SCH ×5 (08:37→23:19)
[2020-03-14] MEDS: Acetaminophen 325 MG Tab PO PRN (08:38)
[2020-03-14] MEDS: Metoprolol Tartrate 50 MG Tab PO SCH ×2 (08:38→20:41)
[2020-03-14] MEDS: Potassium Chloride 20 MEQ Tab.ER PO SCH (08:38)
[2020-03-14] MEDS: Finasteride 5 MG Tab PO SCH (08:39)
[2020-03-14] MEDS: Tamsulosin 0.4 MG Cap.ER PO SCH (08:39)
[2020-03-14] MEDS: Oxybutynin 5 MG Tab.ER PO SCH (08:39)
[2020-03-14] MEDS: Furosemide 20 MG Tab PO SCH ×3 (08:39→20:40)
--- NOTE | 2020-03-14 09:10 | PCM.PN ---
- General Info Date of Service: 03/14/20 Admission Dx/Problem (Free Text): Admission Diagnosis/Problem Admission Diagnosis/Problem Urinary tract infection Subjective Update: The patient is an 84-year-old gentleman who was admitted by me on March 09, 2020. The patient has been found to have E faecalis bacteremia. He has been changed to penicillin G. The patient says that he is doing better today. He does not have much of an appetite. The patient has denied any pain. Patient also has been complaining about the temperature in his room being too cold. He says he has not been able to eat because he has been cold. Functional Status: Reports: Pain Controlled, Other (The patient feels cold.). Denies: Tolerating Diet - Review of Systems General: Reports: Weakness, Fatigue HEENT: Reports: No Symptoms Pulmonary: Reports: No Symptoms Cardiovascular: Reports: No Symptoms Gastrointestinal: Reports: No Symptoms Genitourinary: Reports: No Symptoms Musculoskeletal: Reports: No Symptoms Skin: Reports: No Symptoms Neurological: Reports: No Symptoms Psychiatric: Reports: No Symptoms - Patient Data Vitals - Most Recent: Last Vital Signs Temp 36.8 C 03/14/20 07:57 Pulse 70 03/14/20 08:38 Resp 16 03/14/20 07:57 BP 120/100 H 03/14/20 08:38 Pulse Ox 93 L 03/14/20 07:57 Weight - Most Recent: 117.753 kg I&O - Last 24 Hours: Intake & Output 03/13/20 03/14/20 03/14/20 22:59 06:59 14:59 Intake Total 2570 700 Output Total 1325 2450 Balance 1245 -1750 Lab Results Last 24 Hours: Laboratory Results - last 24 hr 03/14/20 03/14/20 Range/Units 05:30 05:30 WBC 4.61 (4.23-9.07) K/mm3 RBC 3.21 L (4.63-6.08) M/mm3 Hgb 9.1 L (13.7-17.5) gm/dl Hct 29.6 L (40.1-51.0) % MCV 92.2 (79.0-92.2) fl MCH 28.3 (25.7-32.2) pg MCHC 30.7 L (32.2-35.5) g/dl RDW Std Deviation 42.6 (35.1-43.9) fL Plt Count 172 (163-337) K/mm3 MPV 10.3 (9.4-12.3) fl Neut % (Auto) 58.6 (34.0-67.9) % Lymph % (Auto) 29.3 (21.8-53.1) % [place] % (Auto) 8.2 (5.3-12.2) % Eos % (Auto) 3.0 (0.8-7.0) Baso % (Auto) 0.2 (0.1-1.2) % Neut # (Auto) 2.70 (1.78-5.38) K/mm3 Lymph # (Auto) 1.35 (1.32-3.57) K/mm3 [place] # (Auto) 0.38 (0.30-0.82) K/mm3 Eos # (Auto) 0.14 (0.04-0.54) K/mm3 Baso # (Auto) 0.01 (0.01-0.08) K/mm3 Sodium 139 (136-145) mEq/L Potassium 3.1 L (3.5-5.1) mEq/L Chloride 101 (98-107) mEq/L Carbon Dioxide 28 (21-32) mEq/L Anion Gap 13.1 (5-15) BUN 7 (7-18) mg/dL Creatinine 1.1 (0.7-1.3) mg/dL Est Cr Clr Drug Dosing 46.74 mL/min Estimated GFR (MDRD) > 60 (>60) mL/min BUN/Creatinine Ratio 6.4 L (14-18) Glucose 198 H (83-115) mg/dL Calcium 8.1 L (8.5-10.1) mg/dL Phosphorus 2.6 (2.6-4.7) mg/dL Magnesium 1.9 (1.8-2.4) mg/dl Total Bilirubin 0.4 (0.2-1.0) mg/dL AST 15 (15-37) U/L ALT 21 (16-63) U/L Alkaline Phosphatase 94 (46-116) U/L C-Reactive Protein 18.3 H* (<1.0) mg/dL Total Protein 6.6 (6.4-8.2) g/dl Albumin 2.2 L (3.4-5.0) g/dl Globulin 4.4 gm/dL Albumin/Globulin Ratio 0.5 L (1-2) Driss Results Last 24 Hours: Microbiology 03/08/20 17:30 Aerobic Blood Culture - Preliminary Blood - Venous - Lab Draw NO GROWTH AFTER 5 DAYS Anaerobic Blood Culture - Final Enterococcus Faecalis Med Orders - Current: Current Medications Acetaminophen (Tylenol) 650 mg PO Q4H PRN PRN Reason: Fever Last Admin: 03/14/20 08:38 Dose: 650 mg Documented by: Dextrose/Water (Dextrose 50% In Water) 50 ml IVPUSH ASDIRECTED PRN PRN Reason: Hypoglycemia Finasteride (Proscar) 5 mg PO DAILY [facility] Last Admin: 03/14/20 08:39 Dose: 5 mg Documented by: Furosemide (Lasix) 20 mg PO TID [facility] Last Admin: 03/14/20 08:39 Dose: 20 mg Documented by: Penicillin G Potassium 3 (millunits/ Sodium Chloride) 100 mls @ 66.667 mls/hr IV Q4H [facility] Last Admin: 03/14/20 08:38 Dose: 66.667 mls/hr Documented by: Insulin Human Lispro (Humalog) 0 unit SUBCUT QIDACANDBED [facility]; Protocol Last Admin: 03/14/20 08:37 Dose: 1 unit Documented by: Levothyroxine Sodium (Synthroid) 50 mcg PO ACBREAKFAST [facility] Last Admin: 03/14/20 06:39 Dose: Not Given Documented by: Metoprolol Tartrate (Lopressor) 50 mg PO BID [facility] Last Admin: 03/14/20 08:38 Dose: 50 mg Documented by: Oxybutynin Chloride (Oxybutynin Er) 10 mg PO DAILY [facility] Last Admin: 03/14/20 08:39 Dose: 10 mg Documented by: Oxycodone HCl (Oxycodone) 5 mg PO Q4H PRN PRN Reason: Pain (moderate 4-6) Pantoprazole Sodium (Protonix) 40 mg PO DAILY@0700 [facility] Last Admin: 03/14/20 06:39 Dose: Not Given Documented by: Potassium Chloride (Klor-Con M20) 20 meq PO DAILY [facility] Last Admin: 03/14/20 08:38 Dose: 20 meq Documented by: Sodium Chloride (Saline Flush) 10 ml FLUSH ASDIRECTED PRN PRN Reason: Keep Vein Open Last Admin: 03/08/20 16:49 Dose: 10 ml Documented by: Tamsulosin HCl (Flomax) 0.8 mg PO DAILY [facility] Last Admin: 03/14/20 08:39 Dose: 0.8 mg Documented by: Temazepam (Restoril) 15 mg PO BEDTIME PRN PRN Reason: Sleep Discontinued Medications Acetaminophen (Tylenol) 975 mg PO NOW ONE Stop: 03/08/20 16:50 Last Admin: 03/08/20 17:31 Dose: 975 mg Documented by: Calcium Gluconate (Calcium Gluconate) 1 gm IVPUSH ONETIME ONE Stop: 03/10/20 09:51 Last Admin: 03/10/20 10:14 Dose: 1 gm Documented by: Sodium Chloride (Normal Saline) 1,000 mls @ 999 mls/hr IV NOW STA Stop: 03/08/20 18:34 Last Infusion: 03/08/20 18:43 Dose: 150 mls/hr Documented by: Ceftriaxone Sodium 2 gm/ (Sodium Chloride) 100 mls @ 200 mls/hr IV Q24H [facility] Last Admin: 03/09/20 18:22 Dose: 200 mls/hr Documented by: Sodium Chloride (Normal Saline) 100 mls @ 4 mls/sec IV ONETIME ONE Stop: 03/08/20 19:43 Last Admin: 03/12/20 20:47 Dose: Not Given Documented by: Sodium Chloride (Normal Saline) 1,000 mls @ 150 mls/hr IV ASDIRECTED [facility] Last Admin: 03/09/20 11:13 Dose: 150 mls/hr Documented by: Sodium Chloride (Normal Saline) 1,000 mls @ 125 mls/hr IV ASDIRECTED [facility] Last Admin: 03/12/20 07:03 Dose: 125 mls/hr Documented by: Linezolid 600 mg/ Premix 300 mls @ 300 mls/hr IV Q12H [facility] Last Admin: 03/12/20 09:08 Dose: 300 mls/hr Documented by: Magnesium Sulfate (Magnesium Sulfate In Water Premix) 2 gm in 50 mls @ 25 mls/hr IV ONETIME ONE Stop: 03/10/20 11:47 Last Admin: 03/10/20 10:21 Dose: 25 mls/hr Documented by: Magnesium Sulfate (Magnesium Sulfate In Water Premix) 2 gm in 50 mls @ 25 mls/hr IV ONETIME ONE Stop: 03/11/20 13:08 Last Admin: 03/11/20 11:53 Dose: 25 mls/hr Documented by: Potassium Chloride 10 meq/ (Premix) 100 mls @ 100 mls/hr IV Q1H [facility] Stop: 03/12/20 15:14 Last Admin: 03/12/20 16:10 Dose: 100 mls/hr Documented by: Magnesium Sulfate (Magnesium Sulfate In Water Premix) 2 gm in 50 mls @ 25 mls/hr IV ONETIME ONE Stop: 03/12/20 15:40 Last Admin: 03/12/20 14:58 Dose: 25 mls/hr Documented by: Magnesium Sulfate 2 gm/ Premix 50 mls @ 25 mls/hr IV ONETIME ONE Stop: 03/13/20 10:29 Last Admin: 03/13/20 09:04 Dose: 25 mls/hr Documented by: Iopamidol (Isovue-370 (76%)) 100 ml IVPUSH ONETIME ONE Stop: 03/08/20 19:43 Last Admin: 03/08/20 19:43 Dose: 100 ml Documented by: Magnesium Hydroxide (Milk Of Magnesia) 30 ml PO ONETIME ONE Stop: 03/10/20 06:01 Last Admin: 03/10/20 06:30 Dose: 30 ml Documented by: Colestipol 1 Gm - Pt ('s Own Med) 0 gm PO BID [facility] Last Admin: 03/13/20 23:22 Dose: Not Given Documented by: Ondansetron HCl (Zofran) 4 mg IVPUSH ONETIME ONE Stop: 03/08/20 16:58 Last Admin: 03/08/20 17:30 Dose: 4 mg Documented by: Potassium Chloride (Klor-Con 10) 10 meq PO DAILY [facility] Last Admin: 03/13/20 08:02 Dose: 10 meq Documented by: Potassium Chloride (Klor-Con M20) 20 meq PO ONETIME ONE Stop: 03/11/20 11:10 Last Admin: 03/11/20 11:50 Dose: 20 meq Documented by: Potassium Chloride (Klor-Con M20) 40 meq PO ONETIME ONE Stop: 03/12/20 21:01 Last Admin: 03/12/20 21:15 Dose: 40 meq Documented by: Potassium Chloride (Klor-Con M20) 40 meq PO BID [facility] Stop: 03/13/20 21:01 Last Admin: 03/13/20 22:29 Dose: 40 meq Documented by: - Exam Quality Assessment: Urine Catheter. No: Supplemental Oxygen General: Alert, Oriented, Cooperative HEENT: Pupils Equal, Pupils Reactive, EOMI, Mucous Membr. Moist/[place] Neck: Supple, Trachea Midline Lungs: Clear to Auscultation, Normal Respiratory Effort Cardiovascular: Regular Rate, Irregular Rhythm, Murmurs (3 out of 6 holosystolic murmur) GI/Abdominal Exam: Normal Bowel Sounds, Soft, No Distention (Male) Exam: Deferred Back Exam: Normal Inspection (Age-appropriate), Full Range of Motion (Age- appropriate) Extremities: Normal Inspection, No Pedal Edema Skin: Warm, Dry, Intact Neurological: No New Focal Deficit Psy/Mental Status: Alert, Normal Affect Sepsis Event Note - Evaluation Sepsis Screening Result: No Definite Risk - Focused Exam Vital Signs: Vital Signs Temp Pulse Resp BP Pulse Ox 03/14/20 08:38 70 120/100 H 03/14/20 07:57 36.8 C 70 16 120/100 H 93 L 03/14/20 04:58 36.8 C 70 15 114/69 96 03/13/20 22:30 68 124/68 - Problem List & Annotations (1) UTI, Urinary tract infectious disease SNOMED Code(s): 45794563 Code(s): N39.0 - URINARY TRACT INFECTION, SITE NOT SPECIFIED Status: Acute Priority: High Current Visit: Yes (2) Bacteremia due to Enterococcus SNOMED Code(s): 085039953457, 646163946055 Code(s): R78.81 - BACTEREMIA; B95.2 - ENTEROCOCCUS THE CAUSE OF DISEASES CLASSIFIED ELSEWHERE Status: Acute Priority: High Current Visit: Yes (3) Febrile illness SNOMED Code(s): 023437993 Code(s): R50.9 - FEVER, UNSPECIFIED Status: Acute Priority: High Current Visit: Yes (4) Chronic renal insufficiency SNOMED Code(s): 886536434 Code(s): N18.9 - CHRONIC KIDNEY DISEASE, UNSPECIFIED Status: Acute Priority: Medium Current Visit: Yes Qualifiers: Chronic kidney disease stage: stage 3 (moderate) (5) Khanna catheter problem SNOMED Code(s): 247718733 Code(s): T83.9XXA - UNSP COMPLICATION OF GENITOURINARY PROSTH DEV/GRFT, INIT Status: Acute Priority: Medium Current Visit: Yes Qualifiers: Encounter type: subsequent encounter Qualified Code(s): T83.9XXD - Unspecified complication of genitourinary prosthetic device, implant and graft, subsequent encounter (6) Diabetes mellitus type 2 in obese SNOMED Code(s): 84160197 Code(s): E11.69 - TYPE 2 DIABETES MELLITUS WITH OTHER SPECIFIED COMPLICATION; E66.9 - OBESITY, UNSPECIFIED Status: Chronic Priority: Medium Current Visit: Yes (7) Hypocalcemia SNOMED Code(s): 3512064 Code(s): E83.51 - HYPOCALCEMIA Status: Acute Priority: High Current Visit: Yes (8) Hypomagnesemia SNOMED Code(s): 834657294 Code(s): E83.42 - HYPOMAGNESEMIA Status: Acute Priority: High Current Visit: Yes (9) Anemia SNOMED Code(s): 942269499 Code(s): D64.9 - ANEMIA, UNSPECIFIED Status: Acute Priority: High Current Visit: Yes Qualifiers: Anemia type: unspecified type Qualified Code(s): D64.9 - Anemia, unspecified - Problem List Review Problem List Initiated/Reviewed/Updated: Yes - Assessment Assessment:: 03/10/2020 The patient's blood cultures did come back positive for likely Enterococcus. The patient's Rocephin has been discontinued and after review of antibiogram the patient was placed on IV linezolid. The patient also has been noted to have a drop in his hemoglobin and this will be monitored and if the patient does drop below 7.0 g/dL will consider transfusion. Patient does have an indwelling catheter which is likely the source of the infection. The patient will need to follow-up with his urologist as he has recently had surgery to help correct what sounds like phimosis. The patient will be continued on the ADA diet. He is on insulin sliding scale. Patient's vital signs will be monitored and his antihypertensive medications adjusted as necessary. Repeat laboratory studies have also been ordered. PT OT has also been ordered. The patient might likely need to have placement. - Plan Plan:: Patient is an 89-year-old gentleman who has been admitted to acute hospitalization for urinary tract infection. Patient has also been febrile. T he patient has 3 out of 4 bottles for blood culture positive for gram-positive cocci. The patient is being treated empirically with Rocephin until culture and sensitivities have returned and then antibiotics will be adjusted accordingly. He also has multiple metabolic abnormalities and these will be corrected. The patient does have diabetes mellitus type 2 and he will be kept on Accu-Cheks before meals and at bedtime along with sliding scale insulin. Patient will also have Khanna catheter management. Is been noted that the patient's previous urinalysis did show severe hematuria is current urine has been essentially clear. 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 PT OT has also been ordered for the patient. The major concern is that the patient lives alone in an assisted living center and may need to have greater care. Repeat laboratory studies have been ordered. 03/11/2020 The patient is an 89-year-old gentleman who went admitted to acute hospitalization was confused and febrile. He is much improved today. The patient has gram-positive cocci in his blood cultures and he is currently being treated with Zyvox as the presumptive organism is likely Enterococcus faecalis. This will be continued. The patient will continue on his current diet as tolerated. PT OT will be working with the patient. The patient's chronic indwelling catheter will be monitored. I am concerned that the patient may be at risk for bleeding with chemical DVT prophylaxis and he is at fall risk for SCDs. The FELIX hose will be continued for him. Repeat laboratory studies have been ordered. Patient should be appropriate for discharge in 2 to 3 days. 03/12/2020 Peter is improving. He is less confused today. His WBC has increased to 3.43. Potassium has decreased to 2.7. CRP is currently 25.4. Magnesium is slightly low at 1.7 and phosphorus is low at 2.2. Hemoglobin is down to 8.1. Patient has approximately 3500 mL positive fluid balance with a 2 kg weight gain likely delusional secondary to IV fluids. He has been on linezolid for 2 days. Blood cultures have grown out Enterococcus faecalis sensitive to penicillin. Echocardiogram was ordered for today. He has been afebrile for the last 3 days. Plan Switch patient to penicillin G 3,000,000 units every 4 hours. Repeat blood cultures tomorrow. Await echocardiogram results. Replace potassium and magnesium. Recheck labs in the morning to include CBC, CMP, CRP, magnesium, phosphorus 03/13/2020 Sharan is stable. He is afebrile and his CRP has decreased and his WBC is up to 3.9. Blood cultures positive for Enterococcus faecalis and we switched him to penicillin G yesterday. Appetite is fairly good and echocardiogram showed no endocarditis. Also his left ventricular ejection fraction was 55 to 60% with normal right ventricular systolic function. Potassium is still low, but did come up to 3.0. Blood sugars are appropriate. Plan: Continue patient on penicillin G3 million units every 4 hours. Total of 7 days of antibiotics. Recheck blood cultures today. If blood cultures come back positive consider transfer to tertiary [facility] for [facility]. Continue monitoring labs as appropriate. Replace potassium and increase his routine morning potassium to 20 mEq in the morning. 03/14/2020 The patient is less confused today. Continue on his current antibiotics. He was switched to penicillin G. The antibiotics were deescalated. Repeat blood cultures have already been ordered. Laboratory studies have been ordered. The patient's electrolytes will be replaced as necessary. Physical therapy will be continued. Currently awaiting placement. Patient's anemia will be monitored and if his hemoglobin drops below 7.0 g/dL will consider transfusion. Patient is currently in a DNR/DNI status and this will be honored.
[2020-03-15] MEDS: Penicillin G Potassium 3 MILLUNITS in Sodium Chloride 0.9% 100 ML IV SCH ×6 (00:23→20:25)
[2020-03-15] MEDS: Pantoprazole 40 MG Tab.CR PO SCH ×2 (05:14→07:38)
[2020-03-15] MEDS: Levothyroxine 50 MCG Tab PO SCH (05:14)
--- NOTE | 2020-03-15 07:29 | PCM.PN ---
- General Info Date of Service: 03/15/20 Admission Dx/Problem (Free Text): Admission Diagnosis/Problem Admission Diagnosis/Problem Urinary tract infection Subjective Update: The patient is an 84-year-old gentleman who was admitted to acute hospitalization. He had E faecalis bacteremia and has been changed to penicillin G. Patient today says he is much warmer. 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 The patient says that he has been tolerating his diet now. The patient has been sitting in a chair. Functional Status: Reports: Pain Controlled, Tolerating Diet - Review of Systems General: Reports: Weakness, Fatigue HEENT: Reports: No Symptoms Pulmonary: Reports: No Symptoms Cardiovascular: Reports: No Symptoms Gastrointestinal: Reports: No Symptoms Genitourinary: Reports: No Symptoms Musculoskeletal: Reports: No Symptoms Skin: Reports: No Symptoms Neurological: Reports: No Symptoms Psychiatric: Reports: No Symptoms - Patient Data Vitals - Most Recent: Last Vital Signs Temp 36.8 C 03/14/20 20:43 Pulse 69 03/14/20 20:43 Resp 14 03/14/20 20:43 BP 124/78 03/14/20 20:43 Pulse Ox 100 03/14/20 20:43 Weight - Most Recent: 117.753 kg I&O - Last 24 Hours: Intake & Output 03/14/20 03/15/20 03/15/20 22:59 06:59 14:59 Intake Total 820 Output Total 1600 Balance -780 Lab Results Last 24 Hours: Laboratory Results - last 24 hr 03/15/20 03/15/20 Range/Units 05:05 05:05 WBC 5.61 (4.23-9.07) K/mm3 RBC 3.08 L (4.63-6.08) M/mm3 Hgb 8.8 L (13.7-17.5) gm/dl Hct 28.2 L (40.1-51.0) % MCV 91.6 (79.0-92.2) fl MCH 28.6 (25.7-32.2) pg MCHC 31.2 L (32.2-35.5) g/dl RDW Std Deviation 42.1 (35.1-43.9) fL Plt Count 212 (163-337) K/mm3 MPV 10.1 (9.4-12.3) fl Neut % (Auto) 57.6 (34.0-67.9) % Lymph % (Auto) 29.2 (21.8-53.1) % [place] % (Auto) 8.9 (5.3-12.2) % Eos % (Auto) 3.0 (0.8-7.0) Baso % (Auto) 0.2 (0.1-1.2) % Neut # (Auto) 3.23 (1.78-5.38) K/mm3 Lymph # (Auto) 1.64 (1.32-3.57) K/mm3 [place] # (Auto) 0.50 (0.30-0.82) K/mm3 Eos # (Auto) 0.17 (0.04-0.54) K/mm3 Baso # (Auto) 0.01 (0.01-0.08) K/mm3 Sodium 136 (136-145) mEq/L Potassium 3.1 L (3.5-5.1) mEq/L Chloride 98 (98-107) mEq/L Carbon Dioxide 28 (21-32) mEq/L Anion Gap 13.1 (5-15) BUN 8 (7-18) mg/dL Creatinine 1.1 (0.7-1.3) mg/dL Est Cr Clr Drug Dosing 46.74 mL/min Estimated GFR (MDRD) > 60 (>60) mL/min BUN/Creatinine Ratio 7.3 L (14-18) Glucose 247 H (83-115) mg/dL Calcium 8.0 L (8.5-10.1) mg/dL Driss Results Last 24 Hours: Microbiology 03/08/20 17:30 Aerobic Blood Culture - Preliminary Blood - Venous - Lab Draw NO GROWTH AFTER 6 DAYS Anaerobic Blood Culture - Final Enterococcus Faecalis 03/13/20 10:58 Aerobic Blood Culture - Preliminary Blood - Venous - Lab Draw NO GROWTH AFTER 1 DAY Anaerobic Blood Culture - Preliminary NO GROWTH AFTER 1 DAY 03/13/20 11:10 Aerobic Blood Culture - Preliminary Blood - Venous NO GROWTH AFTER 1 DAY Anaerobic Blood Culture - Preliminary NO GROWTH AFTER 1 DAY Med Orders - Current: Current Medications Acetaminophen (Tylenol) 650 mg PO Q4H PRN PRN Reason: Fever Last Admin: 03/14/20 08:38 Dose: 650 mg Documented by: Dextrose/Water (Dextrose 50% In Water) 50 ml IVPUSH ASDIRECTED PRN PRN Reason: Hypoglycemia Finasteride (Proscar) 5 mg PO DAILY [facility] Last Admin: 03/14/20 08:39 Dose: 5 mg Documented by: Furosemide (Lasix) 20 mg PO TID [facility] Last Admin: 03/14/20 20:40 Dose: 20 mg Documented by: Penicillin G Potassium 3 (millunits/ Sodium Chloride) 100 mls @ 66.667 mls/hr IV Q4H [facility] Last Admin: 03/15/20 05:14 Dose: 66.667 mls/hr Documented by: Insulin Human Lispro (Humalog) 0 unit SUBCUT QIDACANDBED [facility]; Protocol Last Admin: 03/14/20 23:19 Dose: Not Given Documented by: Levothyroxine Sodium (Synthroid) 50 mcg PO ACBREAKFAST [facility] Last Admin: 03/15/20 05:14 Dose: 50 mcg Documented by: Metoprolol Tartrate (Lopressor) 50 mg PO BID [facility] Last Admin: 03/14/20 20:41 Dose: 50 mg Documented by: Oxybutynin Chloride (Oxybutynin Er) 10 mg PO DAILY [facility] Last Admin: 03/14/20 08:39 Dose: 10 mg Documented by: Oxycodone HCl (Oxycodone) 5 mg PO Q4H PRN PRN Reason: Pain (moderate 4-6) Pantoprazole Sodium (Protonix) 40 mg PO DAILY@0700 [facility] Last Admin: 03/15/20 05:14 Dose: 40 mg Documented by: Potassium Chloride (Klor-Con M20) 20 meq PO DAILY [facility] Last Admin: 03/14/20 08:38 Dose: 20 meq Documented by: Sodium Chloride (Saline Flush) 10 ml FLUSH ASDIRECTED PRN PRN Reason: Keep Vein Open Last Admin: 03/08/20 16:49 Dose: 10 ml Documented by: Tamsulosin HCl (Flomax) 0.8 mg PO DAILY [facility] Last Admin: 03/14/20 08:39 Dose: 0.8 mg Documented by: Temazepam (Restoril) 15 mg PO BEDTIME PRN PRN Reason: Sleep Discontinued Medications Acetaminophen (Tylenol) 975 mg PO NOW ONE Stop: 03/08/20 16:50 Last Admin: 03/08/20 17:31 Dose: 975 mg Documented by: Calcium Gluconate (Calcium Gluconate) 1 gm IVPUSH ONETIME ONE Stop: 03/10/20 09:51 Last Admin: 03/10/20 10:14 Dose: 1 gm Documented by: Sodium Chloride (Normal Saline) 1,000 mls @ 999 mls/hr IV NOW STA Stop: 03/08/20 18:34 Last Infusion: 03/08/20 18:43 Dose: 150 mls/hr Documented by: Ceftriaxone Sodium 2 gm/ (Sodium Chloride) 100 mls @ 200 mls/hr IV Q24H [facility] Last Admin: 03/09/20 18:22 Dose: 200 mls/hr Documented by: Sodium Chloride (Normal Saline) 100 mls @ 4 mls/sec IV ONETIME ONE Stop: 03/08/20 19:43 Last Admin: 03/12/20 20:47 Dose: Not Given Documented by: Sodium Chloride (Normal Saline) 1,000 mls @ 150 mls/hr IV ASDIRECTED [facility] Last Admin: 03/09/20 11:13 Dose: 150 mls/hr Documented by: Sodium Chloride (Normal Saline) 1,000 mls @ 125 mls/hr IV ASDIRECTED [facility] Last Admin: 03/12/20 07:03 Dose: 125 mls/hr Documented by: Linezolid 600 mg/ Premix 300 mls @ 300 mls/hr IV Q12H [facility] Last Admin: 03/12/20 09:08 Dose: 300 mls/hr Documented by: Magnesium Sulfate (Magnesium Sulfate In Water Premix) 2 gm in 50 mls @ 25 mls/hr IV ONETIME ONE Stop: 03/10/20 11:47 Last Admin: 03/10/20 10:21 Dose: 25 mls/hr Documented by: Magnesium Sulfate (Magnesium Sulfate In Water Premix) 2 gm in 50 mls @ 25 mls/hr IV ONETIME ONE Stop: 03/11/20 13:08 Last Admin: 03/11/20 11:53 Dose: 25 mls/hr Documented by: Potassium Chloride 10 meq/ (Premix) 100 mls @ 100 mls/hr IV Q1H [facility] Stop: 03/12/20 15:14 Last Admin: 03/12/20 16:10 Dose: 100 mls/hr Documented by: Magnesium Sulfate (Magnesium Sulfate In Water Premix) 2 gm in 50 mls @ 25 mls/hr IV ONETIME ONE Stop: 03/12/20 15:40 Last Admin: 03/12/20 14:58 Dose: 25 mls/hr Documented by: Magnesium Sulfate 2 gm/ Premix 50 mls @ 25 mls/hr IV ONETIME ONE Stop: 03/13/20 10:29 Last Admin: 03/13/20 09:04 Dose: 25 mls/hr Documented by: Iopamidol (Isovue-370 (76%)) 100 ml IVPUSH ONETIME ONE Stop: 03/08/20 19:43 Last Admin: 03/08/20 19:43 Dose: 100 ml Documented by: Magnesium Hydroxide (Milk Of Magnesia) 30 ml PO ONETIME ONE Stop: 03/10/20 06:01 Last Admin: 03/10/20 06:30 Dose: 30 ml Documented by: Colestipol 1 Gm - Pt ('s Own Med) 0 gm PO BID [facility] Last Admin: 03/13/20 23:22 Dose: Not Given Documented by: Ondansetron HCl (Zofran) 4 mg IVPUSH ONETIME ONE Stop: 03/08/20 16:58 Last Admin: 03/08/20 17:30 Dose: 4 mg Documented by: Potassium Chloride (Klor-Con 10) 10 meq PO DAILY [facility] Last Admin: 03/13/20 08:02 Dose: 10 meq Documented by: Potassium Chloride (Klor-Con M20) 20 meq PO ONETIME ONE Stop: 03/11/20 11:10 Last Admin: 03/11/20 11:50 Dose: 20 meq Documented by: Potassium Chloride (Klor-Con M20) 40 meq PO ONETIME ONE Stop: 03/12/20 21:01 Last Admin: 03/12/20 21:15 Dose: 40 meq Documented by: Potassium Chloride (Klor-Con M20) 40 meq PO BID [facility] Stop: 03/13/20 21:01 Last Admin: 03/13/20 22:29 Dose: 40 meq Documented by: - Exam Quality Assessment: Supplemental Oxygen General: Alert, Oriented HEENT: Pupils Equal, Pupils Reactive. No: Mucous Membr. Moist/[place] (dry) Neck: Supple, Trachea Midline Lungs: Clear to Auscultation, Normal Respiratory Effort Cardiovascular: Regular Rate, Regular Rhythm GI/Abdominal Exam: Normal Bowel Sounds, Soft, No Distention (Male) Exam: Deferred Back Exam: Normal Inspection, Full Range of Motion Extremities: Normal Inspection, No Pedal Edema Skin: Warm, Dry, Intact Neurological: No New Focal Deficit Psy/Mental Status: Alert, Normal Affect Sepsis Event Note - Evaluation Sepsis Screening Result: No Definite Risk - Focused Exam Vital Signs: Vital Signs Temp Pulse Resp BP Pulse Ox 03/14/20 20:43 36.8 C 69 14 124/78 100 03/14/20 20:41 69 124/78 - Problem List & Annotations (1) UTI, Urinary tract infectious disease SNOMED Code(s): 11085854 Code(s): N39.0 - URINARY TRACT INFECTION, SITE NOT SPECIFIED Status: Acute Priority: High Current Visit: Yes (2) Bacteremia due to Enterococcus SNOMED Code(s): 380497473739, 258644221456 Code(s): R78.81 - BACTEREMIA; B95.2 - ENTEROCOCCUS THE CAUSE OF DISEASES CLASSIFIED ELSEWHERE Status: Acute Priority: High Current Visit: Yes (3) Febrile illness SNOMED Code(s): 165884881 Code(s): R50.9 - FEVER, UNSPECIFIED Status: Acute Priority: High Current Visit: Yes (4) Chronic renal insufficiency SNOMED Code(s): 160286146 Code(s): N18.9 - CHRONIC KIDNEY DISEASE, UNSPECIFIED Status: Acute Priority: Medium Current Visit: Yes Qualifiers: Chronic kidney disease stage: stage 3 (moderate) (5) Khanna catheter problem SNOMED Code(s): 115329583 Code(s): T83.9XXA - UNSP COMPLICATION OF GENITOURINARY PROSTH DEV/GRFT, INIT Status: Acute Priority: Medium Current Visit: Yes Qualifiers: Encounter type: subsequent encounter Qualified Code(s): T83.9XXD - Unspecified complication of genitourinary prosthetic device, implant and graft, subsequent encounter (6) Diabetes mellitus type 2 in obese SNOMED Code(s): 37500872 Code(s): E11.69 - TYPE 2 DIABETES MELLITUS WITH OTHER SPECIFIED COMPLICATION; E66.9 - OBESITY, UNSPECIFIED Status: Chronic Priority: Medium Current Visit: Yes (7) Hypocalcemia SNOMED Code(s): 3459709 Code(s): E83.51 - HYPOCALCEMIA Status: Acute Priority: High Current Visit: Yes (8) Hypomagnesemia SNOMED Code(s): 604552145 Code(s): E83.42 - HYPOMAGNESEMIA Status: Acute Priority: High Current Visit: Yes (9) Anemia SNOMED Code(s): 841291136 Code(s): D64.9 - ANEMIA, UNSPECIFIED Status: Acute Priority: High Current Visit: Yes Qualifiers: Anemia type: unspecified type Qualified Code(s): D64.9 - Anemia, unspecified - Problem List Review Problem List Initiated/Reviewed/Updated: Yes - Assessment Assessment:: 03/10/2020 The patient's blood cultures did come back positive for likely Enterococcus. The patient's Rocephin has been discontinued and after review of antibiogram the patient was placed on IV linezolid. The patient also has been noted to have a drop in his hemoglobin and this will be monitored and if the patient does drop below 7.0 g/dL will consider transfusion. Patient does have an indwelling catheter which is likely the source of the infection. The patient will need to follow-up with his urologist as he has recently had surgery to help correct what sounds like phimosis. The patient will be continued on the ADA diet. He is on insulin sliding scale. Patient's vital signs will be monitored and his antihypertensive medications adjusted as necessary. Repeat laboratory studies have also been ordered. PT OT has also been ordered. The patient might likely need to have placement. - Plan Plan:: Patient is an 89-year-old gentleman who has been admitted to acute hospitalization for urinary tract infection. Patient has also been febrile. The patient has 3 out of 4 bottles for blood culture positive for gram-positive cocci. The patient is being treated empirically with Rocephin until culture and sensitivities have returned and then antibiotics will be adjusted accordingly. He also has multiple metabolic abnormalities and these will be corrected. The patient does have diabetes mellitus type 2 and he will be kept on Accu-Cheks bef ore meals and at bedtime along with sliding scale insulin. Patient will also have Khanna catheter management. Is been noted that the patient's previous urinalysis did show severe hematuria is current urine has been essentially clear. 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 PT OT has also been ordered for the patient. The major concern is that the patient lives alone in an assisted living center and may need to have greater care. Repeat laboratory studies have been ordered. 03/11/2020 The patient is an 89-year-old gentleman who went admitted to acute hospitalization was confused and febrile. He is much improved today. The patient has gram-positive cocci in his blood cultures and he is currently being treated with Zyvox as the presumptive organism is likely Enterococcus faecalis. This will be continued. The patient will continue on his current diet as tolerated. PT OT will be working with the patient. The patient's chronic indwelling catheter will be monitored. I am concerned that the patient may be at risk for bleeding with chemical DVT prophylaxis and he is at fall risk for SCDs. The FELIX hose will be continued for him. Repeat laboratory studies have been ordered. Patient should be appropriate for discharge in 2 to 3 days. 03/12/2020 Sharan is improving. He is less confused today. His WBC has increased to 3.43. Potassium has decreased to 2.7. CRP is currently 25.4. Magnesium is slightly l ow at 1.7 and phosphorus is low at 2.2. Hemoglobin is down to 8.1. Patient has approximately 3500 mL positive fluid balance with a 2 kg weight gain likely delusional secondary to IV fluids. He has been on linezolid for 2 days. Blood cultures have grown out Enterococcus faecalis sensitive to penicillin. Echocardiogram was ordered for today. He has been afebrile for the last 3 days. Plan Switch patient to penicillin G 3,000,000 units every 4 hours. Repeat blood cultures tomorrow. Await echocardiogram results. Replace potassium and magnesium. Recheck labs in the morning to include CBC, CMP, CRP, magnesium, phosphorus 03/13/2020 Sharan is stable. He is afebrile and his CRP has decreased and his WBC is up to 3.9. Blood cultures positive for Enterococcus faecalis and we switched him to penicillin G yesterday. Appetite is fairly good and echocardiogram showed no endocarditis. Also his left ventricular ejection fraction was 55 to 60% with normal right ventricular systolic function. Potassium is still low, but did come up to 3.0. Blood sugars are appropriate. Plan: Continue patient on penicillin G3 million units every 4 hours. Total of 7 days of antibiotics. Recheck blood cultures today. If blood cultures come back positive consider transfer to tertiary care hospital for [facility]. Continue monitoring labs as appropriate. Replace potassium and increase his routine morning potassium to 20 mEq in the morning. 03/14/2020 The patient is less confused today. Continue on his current antibiotics. He was switched to penicillin G. The antibiotics were deescalated. Repeat blood cultures have already been ordered. Laboratory studies have been ordered. The patient's electrolytes will be replaced as necessary. Physical therapy will be continued. Currently awaiting placement. Patient's anemia will be monitored and if his hemoglobin drops below 7.0 g/dL will consider transfusion. Patient is currently in a DNR/DNI status and this will be honored. 03/15/2020 Patient is much less confused today. He is currently on penicillin IV and this be continued. This is due to the patient's enteric coccus faecalis bacteremia. The patient's magnesium and potassium have been normal but these will be rechecked in the morning. Repeat laboratory studies have been ordered. The patient is to continue his current diet. He is currently awaiting placement. Patient will also have blood transfusions if his hemoglobin drops below 7.0 g/dL. Patient is currently in a DNR/DNI category and this will be honored.
[2020-03-15] MEDS: Oxybutynin 5 MG Tab.ER PO SCH (08:16)
[2020-03-15] MEDS: Finasteride 5 MG Tab PO SCH (08:16)
[2020-03-15] MEDS: Potassium Chloride 20 MEQ Tab.ER PO SCH (08:17)
[2020-03-15] MEDS: Tamsulosin 0.4 MG Cap.ER PO SCH (08:17)
[2020-03-15] MEDS: Acetaminophen 325 MG Tab PO PRN (08:18)
[2020-03-15] MEDS: Furosemide 20 MG Tab PO SCH ×3 (08:19→20:26)
[2020-03-15] MEDS: Metoprolol Tartrate 50 MG Tab PO SCH ×2 (08:19→20:26)
[2020-03-15] MEDS: Insulin Lispro 100 Units/ML 3 ML Vial SUBCUT SCH ×5 (08:26→22:10)
[2020-03-15] MEDS ORDERED: Potassium Chloride 20 MEQ Tab.ER PO ONE (16:59)
[2020-03-16] MEDS: Penicillin G Potassium 3 MILLUNITS in Sodium Chloride 0.9% 100 ML IV SCH ×6 (00:43→20:51)
[2020-03-16] MEDS: Pantoprazole 40 MG Tab.CR PO SCH ×2 (04:13→06:25)
[2020-03-16] MEDS: Insulin Lispro 100 Units/ML 3 ML Vial SUBCUT SCH ×4 (08:34→21:03)
[2020-03-16] MEDS: Oxybutynin 5 MG Tab.ER PO SCH (08:35)
[2020-03-16] MEDS: Furosemide 20 MG Tab PO SCH ×3 (08:35→20:53)
[2020-03-16] MEDS: Potassium Chloride 20 MEQ Tab.ER PO SCH (08:35)
[2020-03-16] MEDS: Finasteride 5 MG Tab PO SCH (08:35)
[2020-03-16] MEDS: Tamsulosin 0.4 MG Cap.ER PO SCH (08:35)
[2020-03-16] MEDS: Metoprolol Tartrate 50 MG Tab PO SCH ×2 (08:38→20:53)
--- NOTE | 2020-03-16 10:19 | PCM.PN ---
- General Info Date of Service: 03/16/20 Admission Dx/Problem (Free Text): Admission Diagnosis/Problem Admission Diagnosis/Problem Urinary tract infection Subjective Update: The patient is an 84-year-old gentleman who had been admitted secondary to a urinary tract infection. The patient had bacteremia. Patient says he is feeling better. He says that he has not tolerating his diet now. He has no unusual or different pain today. He is looking forward to going home soon. Functional Status: Reports: Pain Controlled. Denies: Tolerating Diet - Review of Systems General: Reports: Weakness, Fatigue HEENT: Reports: No Symptoms Pulmonary: Reports: No Symptoms Cardiovascular: Reports: No Symptoms Gastrointestinal: Reports: No Symptoms Genitourinary: Reports: No Symptoms Musculoskeletal: Reports: No Symptoms Skin: Reports: No Symptoms Neurological: Reports: No Symptoms Psychiatric: Reports: No Symptoms - Patient Data Vitals - Most Recent: Last Vital Signs Temp 36.7 C 03/16/20 08:38 Pulse 76 03/16/20 08:38 Resp 20 03/16/20 08:38 BP 102/42 L 03/16/20 08:38 Pulse Ox 92 L 03/16/20 08:38 Weight - Most Recent: 115.802 kg I&O - Last 24 Hours: Intake & Output 03/15/20 03/16/20 03/16/20 22:59 06:59 14:59 Intake Total 1060 1100 Output Total 1175 2650 Balance -115 -1550 Lab Results Last 24 Hours: Laboratory Results - last 24 hr 03/16/20 03/16/20 Range/Units 05:50 05:50 WBC 5.30 (4.23-9.07) K/mm3 RBC 3.25 L (4.63-6.08) M/mm3 Hgb 9.3 L (13.7-17.5) gm/dl Hct 30.0 L (40.1-51.0) % MCV 92.3 H (79.0-92.2) fl MCH 28.6 (25.7-32.2) pg MCHC 31.0 L (32.2-35.5) g/dl RDW Std Deviation 42.6 (35.1-43.9) fL Plt Count 241 (163-337) K/mm3 MPV 9.9 (9.4-12.3) fl Neut % (Auto) 54.1 (34.0-67.9) % Lymph % (Auto) 30.6 (21.8-53.1) % [place] % (Auto) 9.2 (5.3-12.2) % Eos % (Auto) 3.8 (0.8-7.0) Baso % (Auto) 0.2 (0.1-1.2) % Neut # (Auto) 2.87 (1.78-5.38) K/mm3 Lymph # (Auto) 1.62 (1.32-3.57) K/mm3 [place] # (Auto) 0.49 (0.30-0.82) K/mm3 Eos # (Auto) 0.20 (0.04-0.54) K/mm3 Baso # (Auto) 0.01 (0.01-0.08) K/mm3 Manual Slide Review Abnormal smear Sodium 137 (136-145) mEq/L Potassium 3.6 (3.5-5.1) mEq/L Chloride 100 (98-107) mEq/L Carbon Dioxide 25 (21-32) mEq/L Anion Gap 15.6 H (5-15) BUN 6 L (7-18) mg/dL Creatinine 1.1 (0.7-1.3) mg/dL Est Cr Clr Drug Dosing 46.74 mL/min Estimated GFR (MDRD) > 60 (>60) mL/min BUN/Creatinine Ratio 5.5 L (14-18) Glucose 237 H (83-115) mg/dL Calcium 8.4 L (8.5-10.1) mg/dL C-Reactive Protein 18.0 H* (<1.0) mg/dL Driss Results Last 24 Hours: Microbiology 03/08/20 17:30 Aerobic Blood Culture - Final Blood - Venous - Lab Draw NO GROWTH AFTER 7 DAYS Anaerobic Blood Culture - Final Enterococcus Faecalis 03/13/20 10:58 Aerobic Blood Culture - Preliminary Blood - Venous - Lab Draw NO GROWTH AFTER 2 DAYS Anaerobic Blood Culture - Preliminary NO GROWTH AFTER 2 DAYS 03/13/20 11:10 Aerobic Blood Culture - Preliminary Blood - Venous NO GROWTH AFTER 2 DAYS Anaerobic Blood Culture - Preliminary NO GROWTH AFTER 2 DAYS Med Orders - Current: Current Medications Acetaminophen (Tylenol) 650 mg PO Q4H PRN PRN Reason: Fever Last Admin: 03/15/20 08:18 Dose: 650 mg Documented by: Dextrose/Water (Dextrose 50% In Water) 50 ml IVPUSH ASDIRECTED PRN PRN Reason: Hypoglycemia Finasteride (Proscar) 5 mg PO DAILY [facility] Last Admin: 03/16/20 08:35 Dose: 5 mg Documented by: Furosemide (Lasix) 20 mg PO TID [facility] Last Admin: 03/16/20 08:35 Dose: 20 mg Documented by: Penicillin G Potassium 3 (millunits/ Sodium Chloride) 100 mls @ 66.667 mls/hr IV Q4H [facility] Last Admin: 03/16/20 08:34 Dose: 66.667 mls/hr Documented by: Insulin Human Lispro (Humalog) 0 unit SUBCUT QIDACANDBED [facility]; Protocol Last Admin: 03/16/20 08:34 Dose: 2 unit Documented by: Metoprolol Tartrate (Lopressor) 50 mg PO BID [facility] Last Admin: 03/16/20 08:38 Dose: 50 mg Documented by: Oxybutynin Chloride (Oxybutynin Er) 10 mg PO DAILY [facility] Last Admin: 03/16/20 08:35 Dose: 10 mg Documented by: Oxycodone HCl (Oxycodone) 5 mg PO Q4H PRN PRN Reason: Pain (moderate 4-6) Pantoprazole Sodium (Protonix) 40 mg PO DAILY@0700 [facility] Last Admin: 03/16/20 06:25 Dose: Not Given Documented by: Potassium Chloride (Klor-Con M20) 20 meq PO DAILY [facility] Last Admin: 03/16/20 08:35 Dose: 20 meq Documented by: Sodium Chloride (Saline Flush) 10 ml FLUSH ASDIRECTED PRN PRN Reason: Keep Vein Open Last Admin: 03/08/20 16:49 Dose: 10 ml Documented by: Tamsulosin HCl (Flomax) 0.8 mg PO DAILY [facility] Last Admin: 03/16/20 08:35 Dose: 0.8 mg Documented by: Temazepam (Restoril) 15 mg PO BEDTIME PRN PRN Reason: Sleep Discontinued Medications Acetaminophen (Tylenol) 975 mg PO NOW ONE Stop: 03/08/20 16:50 Last Admin: 03/08/20 17:31 Dose: 975 mg Documented by: Calcium Gluconate (Calcium Gluconate) 1 gm IVPUSH ONETIME ONE Stop: 03/10/20 09:51 Last Admin: 03/10/20 10:14 Dose: 1 gm Documented by: Sodium Chloride (Normal Saline) 1,000 mls @ 999 mls/hr IV NOW STA Stop: 03/08/20 18:34 Last Infusion: 03/08/20 18:43 Dose: 150 mls/hr Documented by: Ceftriaxone Sodium 2 gm/ (Sodium Chloride) 100 mls @ 200 mls/hr IV Q24H [facility] Last Admin: 03/09/20 18:22 Dose: 200 mls/hr Documented by: Sodium Chloride (Normal Saline) 100 mls @ 4 mls/sec IV ONETIME ONE Stop: 03/08/20 19:43 Last Admin: 03/12/20 20:47 Dose: Not Given Documented by: Sodium Chloride (Normal Saline) 1,000 mls @ 150 mls/hr IV ASDIRECTED [facility] Last Admin: 03/09/20 11:13 Dose: 150 mls/hr Documented by: Sodium Chloride (Normal Saline) 1,000 mls @ 125 mls/hr IV ASDIRECTED [facility] Last Admin: 03/12/20 07:03 Dose: 125 mls/hr Documented by: Linezolid 600 mg/ Premix 300 mls @ 300 mls/hr IV Q12H [facility] Last Admin: 03/12/20 09:08 Dose: 300 mls/hr Documented by: Magnesium Sulfate (Magnesium Sulfate In Water Premix) 2 gm in 50 mls @ 25 mls/hr IV ONETIME ONE Stop: 03/10/20 11:47 Last Admin: 03/10/20 10:21 Dose: 25 mls/hr Documented by: Magnesium Sulfate (Magnesium Sulfate In Water Premix) 2 gm in 50 mls @ 25 mls/hr IV ONETIME ONE Stop: 03/11/20 13:08 Last Admin: 03/11/20 11:53 Dose: 25 mls/hr Documented by: Potassium Chloride 10 meq/ (Premix) 100 mls @ 100 mls/hr IV Q1H [facility] Stop: 03/12/20 15:14 Last Admin: 03/12/20 16:10 Dose: 100 mls/hr Documented by: Magnesium Sulfate (Magnesium Sulfate In Water Premix) 2 gm in 50 mls @ 25 mls/hr IV ONETIME ONE Stop: 03/12/20 15:40 Last Admin: 03/12/20 14:58 Dose: 25 mls/hr Documented by: Magnesium Sulfate 2 gm/ Premix 50 mls @ 25 mls/hr IV ONETIME ONE Stop: 03/13/20 10:29 Last Admin: 03/13/20 09:04 Dose: 25 mls/hr Documented by: Iopamidol (Isovue-370 (76%)) 100 ml IVPUSH ONETIME ONE Stop: 03/08/20 19:43 Last Admin: 03/08/20 19:43 Dose: 100 ml Documented by: Levothyroxine Sodium (Synthroid) 50 mcg PO ACBREAKFAST [facility] Last Admin: 03/15/20 05:14 Dose: 50 mcg Documented by: Magnesium Hydroxide (Milk Of Magnesia) 30 ml PO ONETIME ONE Stop: 03/10/20 06:01 Last Admin: 03/10/20 06:30 Dose: 30 ml Documented by: Colestipol 1 Gm - Pt ('s Own Med) 0 gm PO BID [facility] Last Admin: 03/13/20 23:22 Dose: Not Given Documented by: Ondansetron HCl (Zofran) 4 mg IVPUSH ONETIME ONE Stop: 03/08/20 16:58 Last Admin: 03/08/20 17:30 Dose: 4 mg Documented by: Potassium Chloride (Klor-Con 10) 10 meq PO DAILY [facility] Last Admin: 03/13/20 08:02 Dose: 10 meq Documented by: Potassium Chloride (Klor-Con M20) 20 meq PO ONETIME ONE Stop: 03/11/20 11:10 Last Admin: 03/11/20 11:50 Dose: 20 meq Documented by: Potassium Chloride (Klor-Con M20) 40 meq PO ONETIME ONE Stop: 03/12/20 21:01 Last Admin: 03/12/20 21:15 Dose: 40 meq Documented by: Potassium Chloride (Klor-Con M20) 40 meq PO BID [facility] Stop: 03/13/20 21:01 Last Admin: 03/13/20 22:29 Dose: 40 meq Documented by: Potassium Chloride (Klor-Con M20) 20 meq PO ONETIME ONE Stop: 03/15/20 17:00 Last Admin: 03/15/20 17:23 Dose: 20 meq Documented by: - Exam Quality Assessment: Urine Catheter. No: Supplemental Oxygen General: Alert, Oriented, Cooperative HEENT: Pupils Equal, Pupils Reactive, EOMI Neck: Supple, Trachea Midline Lungs: Clear to Auscultation, Normal Respiratory Effort Cardiovascular: Regular Rate, Regular Rhythm GI/Abdominal Exam: Normal Bowel Sounds, Soft, No Distention (Male) Exam: Deferred Back Exam: Normal Inspection. No: Full Range of Motion (Age-appropriate) Extremities: Normal Inspection, No Pedal Edema Skin: Warm, Dry, Intact Neurological: No New Focal Deficit Psy/Mental Status: Alert, Normal Affect Sepsis Event Note - Evaluation Sepsis Screening Result: No Definite Risk - Focused Exam Vital Signs: Vital Signs Temp Pulse Resp BP Pulse Ox Pulse Ox 03/16/20 08:38 36.7 C 76 20 102/42 L 92 L 03/16/20 08:00 93 L 03/16/20 04:20 36.8 C 80 13 107/43 L 92 L - Problem List & Annotations (1) UTI, Urinary tract infectious disease SNOMED Code(s): 25004494 Code(s): N39.0 - URINARY TRACT INFECTION, SITE NOT SPECIFIED Status: Acute Priority: High Current Visit: Yes (2) Bacteremia due to Enterococcus SNOMED Code(s): 114983772953, 756547729747 Code(s): R78.81 - BACTEREMIA; B95.2 - ENTEROCOCCUS THE CAUSE OF DISEASES CLASSIFIED ELSEWHERE Status: Acute Priority: High Current Visit: Yes (3) Febrile illness SNOMED Code(s): 995506619 Code(s): R50.9 - FEVER, UNSPECIFIED Status: Acute Priority: High Current Visit: Yes (4) Chronic renal insufficiency SNOMED Code(s): 271204593 Code(s): N18.9 - CHRONIC KIDNEY DISEASE, UNSPECIFIED Status: Acute Priority: Medium Current Visit: Yes Qualifiers: Chronic kidney disease stage: stage 3 (moderate) (5) Khanna catheter problem SNOMED Code(s): 316044055 Code(s): T83.9XXA - UNSP COMPLICATION OF GENITOURINARY PROSTH DEV/GRFT, INIT Status: Acute Priority: Medium Current Visit: Yes Qualifiers: Encounter type: subsequent encounter Qualified Code(s): T83.9XXD - Unspecified complication of genitourinary prosthetic device, implant and graft, subsequent encounter (6) Diabetes mellitus type 2 in obese SNOMED Code(s): 18508514 Code(s): E11.69 - TYPE 2 DIABETES MELLITUS WITH OTHER SPECIFIED COMPLICATION; E66.9 - OBESITY, UNSPECIFIED Status: Chronic Priority: Medium Current Visit: Yes (7) Hypocalcemia SNOMED Code(s): 1544167 Code(s): E83.51 - HYPOCALCEMIA Status: Acute Priority: High Current Visit: Yes (8) Hypomagnesemia SNOMED Code(s): 962032240 Code(s): E83.42 - HYPOMAGNESEMIA Status: Acute Priority: High Current Visit: Yes (9) Anemia SNOMED Code(s): 373571714 Code(s): D64.9 - ANEMIA, UNSPECIFIED Status: Acute Priority: High Curre nt Visit: Yes Qualifiers: Anemia type: unspecified type Qualified Code(s): D64.9 - Anemia, unspecified - Problem List Review Problem List Initiated/Reviewed/Updated: Yes - Assessment Assessment:: 03/10/2020 The patient's blood cultures did come back positive for likely Enterococcus. The patient's Rocephin has been discontinued and after review of antibiogram the patient was placed on IV linezolid. The patient also has been noted to have a drop in his hemoglobin and this will be monitored and if the patient does drop below 7.0 g/dL will consider transfusion. Patient does have an indwelling catheter which is likely the source of the infection. The patient will need to follow-up with his urologist as he has recently had surgery to help correct what sounds like phimosis. The patient will be continued on the ADA diet. He is on insulin sliding scale. Patient's vital signs will be monitored and his antihypertensive medications adjusted as necessary. Repeat laboratory studies have also been ordered. PT OT has also been ordered. The patient might likely need to have placement. - Plan Plan:: Patient is an 89-year-old gentleman who has been admitted to [facility] for urinary tract infection. Patient has also been febrile. The patient has 3 out of 4 bottles for blood culture positive for gram-positive cocci. The patient is being treated empirically with Rocephin until culture and sensitivities have returned and then antibiotics will be adjusted accordingly. He also has multiple metabolic abnormalities and these will be corrected. The patient does have diabetes mellitus type 2 and he will be kept on Accu-Cheks before meals and at bedtime along with sliding scale insulin. Patient will also have Khanna catheter management. Is been noted that the patient's previous urinalysis did show severe hematuria is current urine has been essentially clear. 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 PT OT has also been ordered for the patient. The major concern is that the patient lives alone in an assisted living center and may need to have greater care. Repeat laboratory studies have been ordered. 03/11/2020 The patient is an 89-year-old gentleman who went admitted to acute hospitalization was confused and febrile. He is much improved today. The patient has gram-positive cocci in his blood cultures and he is currently being treated with Zyvox as the presumptive organism is likely Enterococcus faecalis. This will be continued. The patient will continue on his current diet as tolerated. PT OT will be working with the patient. The patient's chronic indwelling catheter will be monitored. I am concerned that the patient may be at risk for bleeding with chemical DVT prophylaxis and he is at fall risk for SCDs. The FELIX hose will be continued for him. Repeat laboratory studies have been ordered. Patient should be appropriate for discharge in 2 to 3 days. 03/12/2020 Sharan is improving. He is less confused today. His WBC has increased to 3.43. Potassium has decreased to 2.7. CRP is currently 25.4. Magnesium is slightly low at 1.7 and phosphorus is low at 2.2. Hemoglobin is down to 8.1. Patient has approximately 3500 mL positive fluid balance with a 2 kg weight gain likely delusional secondary to IV fluids. He has been on linezolid for 2 days. Blood cultures have grown out Enterococcus faecalis sensitive to penicillin. Echocardiogram was ordered for today. He has been afebrile for the last 3 days. Plan Switch patient to penicillin G 3,000,000 units every 4 hours. Repeat blood cultures tomorrow. Await echocardiogram results. Replace potassium and magnesium. Recheck labs in the morning to include CBC, CMP, CRP, magnesium, phosphorus 03/13/2020 Sharan is stable. He is afebrile and his CRP has decreased and his WBC is up to 3.9. Blood cultures positive for Enterococcus faecalis and we switched him to penicillin G yesterday. Appetite is fairly good and echocardiogram showed no endocarditis. Also his left ventricular ejection fraction was 55 to 60% with normal right ventricular systolic function. Potassium is still low, but did come up to 3.0. Blood sugars are appropriate. Plan: Continue patient on penicillin G3 million units every 4 hours. Total of 7 days of antibiotics. Recheck blood cultures today. If blood cultures come back positive consider transfer to tertiary care hospital for [facility]. Continue monitoring labs as appropriate. Replace potassium and increase his routine morning potassium to 20 mEq in the morning. 03/14/2020 The patient is less confused today. Continue on his current antibiotics. He was switched to penicillin G. The antibiotics were deescalated. Repeat blood cultures have already been ordered. Laboratory studies have been ordered. The patient's electrolytes will be replaced as necessary. Physical therapy will be continued. Currently awaiting placement. Patient's anemia will be monitored and if his hemoglobin drops below 7.0 g/dL will consider transfusion. Patient is currently in a DNR/DNI status and this will be honored. 03/15/2020 Patient is much less confused today. He is currently on penicillin IV and this be continued. This is due to the patient's enteric coccus faecalis bacteremia. The patient's magnesium and potassium have been normal but these will be rechecked in the morning. Repeat laboratory studies have been ordered. The patient is to continue his current diet. He is currently awaiting placement. Patient will also have blood transfusions if his hemoglobin drops below 7.0 g/dL. Patient is currently in a DNR/DNI category and this will be honored. 03/16/2020. Overall the patient is doing much better today. We will continue with the p enicillin IV due to the patient's bacteremia. He is currently awaiting placement. The patient has been anemic and repeat laboratory studies have been ordered in addition to his magnesium and phosphorus. His electrolytes will be replaced as necessary. If the patient's hemoglobin drops below 7.0 g/dL will consider transfusion. The patient is also in a DNR/DNI category.
[2020-03-16] MEDS ORDERED: Benzocaine/Cetylpyridinium/Menthol Lozenge MUCMEM PRN (14:56)
[2020-03-17] MEDS: Penicillin G Potassium 3 MILLUNITS in Sodium Chloride 0.9% 100 ML IV SCH ×4 (01:28→13:11)
[2020-03-17] MEDS: Pantoprazole 40 MG Tab.CR PO SCH (06:24)
[2020-03-17] MEDS: Tamsulosin 0.4 MG Cap.ER PO SCH (09:09)
[2020-03-17] MEDS: Finasteride 5 MG Tab PO SCH (09:10)
[2020-03-17] MEDS: Potassium Chloride 20 MEQ Tab.ER PO SCH (09:10)
[2020-03-17] MEDS: Oxybutynin 5 MG Tab.ER PO SCH (09:10)
[2020-03-17] MEDS: Furosemide 20 MG Tab PO SCH ×2 (09:11→18:54)
[2020-03-17] MEDS: Metoprolol Tartrate 50 MG Tab PO SCH (09:11)
[2020-03-17] MEDS: Insulin Lispro 100 Units/ML 3 ML Vial SUBCUT SCH ×2 (09:12→13:09)
[2020-03-17 09:15] VITALS: BP 105/77; PULSE 71
--- NOTE | 2020-03-17 12:26 | PCM.SN.2 ---
- Free Text/Narrative Note: This will count as a [id number] meeting with the patient. The patient has chronic indwelling catheter along with UTI and generalized deconditioning. He also has physical deconditioning. The patient is in need of home health care services for low activity tolerance, functional mobility, standing balance, strength and transfers. Nursing for vitals, skilled assessment, disease education and disease management. [facility] services for bathing and assistance with self-cares. The patient will also need to have physical therapy for balance training, neuromuscular reduction, therapeutic exercises and transfer training. Occupational Therapy for tolerance, self-care training, ADLs and other training. The patient is currently homebound waiting to being walker/wheelchair dependent, decreased physical activity, and a decreased level of endurance. The patient will be followed by his primary care provider, Dr. Jimenes.
--- NOTE | 2020-03-17 14:28 | PCM.DCSUM1 ---
Discharge Summary - Hospital Course HPI Initial Comments: Patient was admitted secondary to complicated UTI with chronic indwelling catheter. Diagnosis: Stroke: No - Discharge Data Discharge Date: 03/17/20 Discharge Disposition: Home, W Home Health Agency 06 Condition: Good - Referral to Home Health Date of Face to Face Encounter: 03/17/20 Reason for Homebound Status: Severe mobility issues, physical deconditioning, chronic indwelling catheter. Primary Care Physician: Yimi Jimenes MD Skilled Need: Assistance with ambulation, strengthening, activities of daily living - Discharge Diagnosis/Problem(s) (1) UTI, Urinary tract infectious disease SNOMED Code(s): 21432126 ICD Code: N39.0 - URINARY TRACT INFECTION, SITE NOT SPECIFIED Status: Acute Priority: High Current Visit: Yes (2) Bacteremia due to Enterococcus SNOMED Code(s): 702847628623, 069330279528 ICD Code: R78.81 - BACTEREMIA; B95.2 - ENTEROCOCCUS THE CAUSE OF DISEASES CLASSIFIED ELSEWHERE Status: Acute Priority: High Current Visit: Yes (3) Febrile illness SNOMED Code(s): 104246883 ICD Code: R50.9 - FEVER, UNSPECIFIED Status: Acute Priority: High Current Visit: Yes (4) Chronic renal insufficiency SNOMED Code(s): 268488123 ICD Code: N18.9 - CHRONIC KIDNEY DISEASE, UNSPECIFIED Status: Acute Priority: Medium Current Visit: Yes Qualifiers: Chronic kidney disease stage: stage 3 (moderate) (5) Khanna catheter problem SNOMED Code(s): 033039839 ICD Code: T83.9XXA - UNSP COMPLICATION OF GENITOURINARY PROSTH DEV/GRFT, INIT Status: Acute Priority: Medium Current Visit: Yes Qualifiers: Encounter type: subsequent encounter Qualified Code(s): T83.9XXD - Unspecified complication of genitourinary prosthetic device, implant and graft, subsequent encounter (6) Diabetes mellitus type 2 in obese SNOMED Code(s): 90384034 ICD Code: E11.69 - TYPE 2 DIABETES MELLITUS WITH OTHER SPECIFIED COMPLICATION; E66.9 - OBESITY, UNSPECIFIED Status: Chronic Priority: Medium Current Visit: Yes (7) Hypocalcemia SNOMED Code(s): 5346283 ICD Code: E83.51 - HYPOCALCEMIA Status: Acute Priority: High Current Visit: Yes (8) Hypomagnesemia SNOMED Code(s): 653564863 ICD Code: E83.42 - HYPOMAGNESEMIA Status: Acute Priority: High Current Visit: Yes (9) Anemia SNOMED Code(s): 405927363 ICD Code: D64.9 - ANEMIA, UNSPECIFIED Status: Acute Priority: High Current Visit: Yes Qualifiers: Anemia type: unspecified type Qualified Code(s): D64.9 - Anemia, unspecified - Patient Summary/Data Consults: Consultations 03/09/20 11:44 OT Evaluation and Treatment [CONS] Routine PT Evaluation and Treatment [CONS] Routine 03/10/20 12:12 Consult to Speech Language Pathology [QUANTITATIVE EQUITY HEAD Evaluation and Treatment] [CONS] Routine Hospital Course: Patient is an 84-year-old gentleman who was admitted to acute hospitalization on March 09, 2020 by me. The patient had been reported to be feeling increasingly weak. He slid out of the recliner at home. He was found to have a fever of 102 while in the emergency department. The patient had surgery in January and has had a chronic end dwelling Khanna catheter placed. Patient himself at the time was a somewhat of a poor historian. He was also Covid negative. The patient was admitted to acute hospitalization secondary to complicated urinary tract infection. The patient also had a D-dimer which was markedly elevated upon admission greater than 35.2 mg/L. The patient was also noted to have elevations in his BUN and creatinine which were thought to be due to urinary outlet obstruction. The patient had cultures taken of both the urinary catheter tip and also the blood samples. The patient had initial cultures growing Enterococcus faecalis which was sensitive to all medications except for erythromycin. The patient was initially started on ceftriaxone for the urinary tract infection and this had been changed to linezolid and the patient tolerated this well. The patient's antibiotics were deescalated to IV penicillin. The patient also tolerated this well. The patient had been able to keep his oxygen saturations even with oxygen above 90%. The patient had been initially confused. He had recovered some of his mental faculties and was able to carry on a conversation and also supply history. The patient had blood cultures taken which had shown no growth. The patient had continued to improve. He was able to tolerate his diet by close to discharge. Overall, the patient had improved sufficiently that he felt he could go home. Patient also had been evaluated and was considered to be homebound on a [id number] report. The patient had been recommended for home health to help with his vital signs and skilled assessment as well as bathing assistance and self-care. This had been arranged. By day of discharge patient was hemodynamically stable and tolerating diet. He was tolerating some minimal activity. Because of the patient's blood cultures the patient was sent home on ampicillin 500 mg p.o. twice daily to assist with any possible recurrence of the urinary tract infection. The patient has been recommended to continue with his diet. He has been recommended continue with activity as directed by home health. The patient has been discharged from acute hospitalization with the recommendations above. - Patient Instructions Diet: Heart Healthy Diet Activity: As Tolerated - Discharge Plan *PRESCRIPTION DRUG MONITORING PROGRAM REVIEWED*: Not Applicable *COPY OF PRESCRIPTION DRUG MONITORING REPORT IN PATIENT MICHELLE: Not Applicable Prescriptions/Med Rec: Ampicillin Trihydrate 500 mg PO BID #20 capsule Home Medications: Home Meds Aspirin 81 mg PO DAILY 02/07/20 [History] Colestipol [Colestipol HCl] 1 gm PO BID 02/07/20 [History] Empagliflozin [Jardiance] 25 mg PO DAILY 02/07/20 [History] Finasteride [Proscar] 5 mg PO DAILY 02/07/20 [History] Furosemide [Lasix] 20 mg PO TID 02/07/20 [History] Glimepiride 4 mg PO DAILY 02/07/20 [History] Levothyroxine [Synthroid] 50 mcg PO ACBREAKFAST 02/07/20 [History] Metoprolol Tartrate [Lopressor] 50 mg PO BID 02/07/20 [History] Omeprazole 20 mg PO DAILY 02/07/20 [History] Potassium Chloride 10 meq PO DAILY 02/07/20 [History] Tamsulosin HCl 0.8 mg PO DAILY 02/07/20 [History] Triamcinolone Acetonide [Triamcinolone Acetonide 0.5%] 0.5 percent TOP BID 02/07/20 [History] Valsartan 320 mg PO DAILY 02/07/20 [History] amLODIPine [Norvasc] 5 mg PO DAILY 02/07/20 [History] metFORMIN [Glucophage] 500 mg PO BIDMEALS 02/07/20 [History] Cholecalciferol (Vitamin D3) [Vitamin D3] 1,000 unit PO DAILY 10/11/20 [History] Insulin Aspart [NovoLOG] 40 - 50 unit SQ BID 03/08/20 [History] Insulin Glarg,Human.Rec.Analog [Lantus] 40 units SQ BID 03/08/20 [History] Oxybutynin Chloride [Ditropan Xl] 10 mg PO DAILY 03/08/20 [History] Ampicillin Trihydrate 500 mg PO BID #20 capsule 03/17/20 [Rx] Temazepam [Restoril] 15 mg PO BEDTIME PRN cap 03/17/20 [Rx] Oxygen Therapy Mode: Room Air Patient Handouts: COVID-19 Frequently Asked Questions, Indwelling Urinary Catheter Care, Adult, COVID-19: How to Protect Yourself and Others - CDC, Infection Prevention in the Home, Sepsis, Self Care, Adult Forms: ED Department Discharge Referrals: Yimi Jimenes MD [Primary Care Provider] - Jovani Alejandra MD [Ordering Only Provider] - (patient just saw Dr. Alejandra Mar.03 continue to follow up with Dr. Alejandra your regualr scheduled appt. as needed.) - Discharge Summary/Plan Comment DC Time >30 min.: Yes - General Info Date of Service: 03/17/20 Admission Dx/Problem (Free Text: Admission Diagnosis/Problem Admission Diagnosis/Problem Urinary tract infection Subjective Update: The patient is an 84-year-old gentleman who had been admitted secondary to a urinary tract infection. The patient had bacteremia. Patient says he is feeling better. He says that he has not tolerating his diet now. Patient is doing well today. He says he feels like he can go home. Functional Status: Reports: Pain Controlled, Tolerating Diet - Review of Systems General: Reports: Weakness HEENT: Reports: No Symptoms Pulmonary: Reports: No Symptoms Cardiovascular: Reports: No Symptoms Gastrointestinal: Reports: No Symptoms Genitourinary: Reports: No Symptoms Musculoskeletal: Reports: Back Pain Neurological: Reports: No Symptoms Psychiatric: Reports: No Symptoms - Patient Data Vitals - Most Recent: Last Vital Signs Temp 36.8 C 03/17/20 09:04 Pulse 71 03/17/20 09:11 Resp 16 03/17/20 09:04 BP 105/77 03/17/20 09:11 Pulse Ox 96 03/17/20 09:04 Weight - Most Recent: 65.136 kg I&O - Last 24 hours: Intake & Output 03/16/20 03/17/20 03/17/20 22:59 06:59 14:59 Intake Total 2000 500 360 Output Total 1200 800 Balance 800 -300 360 Lab Results - Last 24 hrs: Laboratory Results - last 24 hr 03/17/20 03/17/20 03/17/20 Range/Units 05:40 05:40 05:40 WBC 6.32 (4.23-9.07) K/mm3 RBC 3.30 L (4.63-6.08) M/mm3 Hgb 9.4 L (13.7-17.5) gm/dl Hct 30.3 L (40.1-51.0) % MCV 91.8 (79.0-92.2) fl MCH 28.5 (25.7-32.2) pg MCHC 31.0 L (32.2-35.5) g/dl RDW Std Deviation 43.2 (35.1-43.9) fL Plt Count 259 (163-337) K/mm3 MPV 9.8 (9.4-12.3) fl Neut % (Auto) 55.5 (34.0-67.9) % Lymph % (Auto) 30.1 (21.8-53.1) % Morrill % (Auto) 8.5 (5.3-12.2) % Eos % (Auto) 3.5 (0.8-7.0) Baso % (Auto) 0.2 (0.1-1.2) % Neut # (Auto) 3.51 (1.78-5.38) K/mm3 Lymph # (Auto) 1.90 (1.32-3.57) K/mm3 Morrill # (Auto) 0.54 (0.30-0.82) K/mm3 Eos # (Auto) 0.22 (0.04-0.54) K/mm3 Baso # (Auto) 0.01 (0.01-0.08) K/mm3 Manual Slide Review Normal smear D-Dimer, Quantitative 3.06 H (0.19-0.50) mg/L Sodium 135 L (136-145) mEq/L Potassium 3.6 (3.5-5.1) mEq/L Chloride 99 (98-107) mEq/L Carbon Dioxide 25 (21-32) mEq/L Anion Gap 14.6 (5-15) BUN 9 (7-18) mg/dL Creatinine 1.3 (0.7-1.3) mg/dL Est Cr Clr Drug Dosing 39.55 mL/min Estimated GFR (MDRD) 53 (>60) mL/min BUN/Creatinine Ratio 6.9 L (14-18) Glucose 245 H (83-115) mg/dL Calcium 8.8 (8.5-10.1) mg/dL JAJA Results - Last 24 hrs: Microbiology 03/13/20 10:58 Aerobic Blood Culture - Preliminary Blood - Venous - Lab Draw NO GROWTH AFTER 4 DAYS Anaerobic Blood Culture - Preliminary NO GROWTH AFTER 4 DAYS 03/13/20 11:10 Aerobic Blood Culture - Preliminary Blood - Venous NO GROWTH AFTER 4 DAYS Anaerobic Blood Culture - Preliminary NO GROWTH AFTER 4 DAYS Med Orders - Current: Current Medications Acetaminophen (Tylenol) 650 mg PO Q4H PRN PRN Reason: Fever Last Admin: 03/15/20 08:18 Dose: 650 mg Documented by: Benzocaine/Menthol (Cepacol Sore Throat) 1 lozenge MUCMEM Q3H PRN PRN Reason: Sore throat Last Admin: 03/16/20 15:26 Dose: 1 lozenge Documented by: Dextrose/Water (Dextrose 50% In Water) 50 ml IVPUSH ASDIRECTED PRN PRN Reason: Hypoglycemia Finasteride (Proscar) 5 mg PO DAILY [facility] Last Admin: 03/17/20 09:10 Dose: 5 mg Documented by: Furosemide (Lasix) 20 mg PO TID [facility] Last Admin: 03/17/20 09:11 Dose: 20 mg Documented by: Penicillin G Potassium 3 (millunits/ Sodium Chloride) 100 mls @ 66.667 mls/hr IV Q4H [facility] Last Admin: 03/17/20 13:11 Dose: 66.667 mls/hr Documented by: Insulin Human Lispro (Humalog) 0 unit SUBCUT QIDACANDBED [facility]; Protocol Last Admin: 03/17/20 13:09 Dose: 4 unit Documented by: Metoprolol Tartrate (Lopressor) 50 mg PO BID [facility] Last Admin: 03/17/20 09:11 Dose: 50 mg Documented by: Oxybutynin Chloride (Oxybutynin Er) 10 mg PO DAILY [facility] Last Admin: 03/17/20 09:10 Dose: 10 mg Documented by: Oxycodone HCl (Oxycodone) 5 mg PO Q4H PRN PRN Reason: Pain (moderate 4-6) Pantoprazole Sodium (Protonix) 40 mg PO DAILY@0700 [facility] Last Admin: 03/17/20 06:24 Dose: 40 mg Documented by: Potassium Chloride (Klor-Con M20) 20 meq PO DAILY [facility] Last Admin: 03/17/20 09:10 Dose: 20 meq Documented by: Sodium Chloride (Saline Flush) 10 ml FLUSH ASDIRECTED PRN PRN Reason: Keep Vein Open Last Admin: 03/08/20 16:49 Dose: 10 ml Documented by: Tamsulosin HCl (Flomax) 0.8 mg PO DAILY [facility] Last Admin: 03/17/20 09:09 Dose: 0.8 mg Documented by: Temazepam (Restoril) 15 mg PO BEDTIME PRN PRN Reason: Sleep Discontinued Medications Acetaminophen (Tylenol) 975 mg PO NOW ONE Stop: 03/08/20 16:50 Last Admin: 03/08/20 17:31 Dose: 975 mg Documented by: Calcium Gluconate (Calcium Gluconate) 1 gm IVPUSH ONETIME ONE Stop: 03/10/20 09:51 Last Admin: 03/10/20 10:14 Dose: 1 gm Documented by: Sodium Chloride (Normal Saline) 1,000 mls @ 999 mls/hr IV NOW STA Stop: 03/08/20 18:34 Last Infusion: 03/08/20 18:43 Dose: 150 mls/hr Documented by: Ceftriaxone Sodium 2 gm/ (Sodium Chloride) 100 mls @ 200 mls/hr IV Q24H [facility] Last Admin: 03/09/20 18:22 Dose: 200 mls/hr Documented by: Sodium Chloride (Normal Saline) 100 mls @ 4 mls/sec IV ONETIME ONE Stop: 03/08/20 19:43 Last Admin: 03/12/20 20:47 Dose: Not Given Documented by: Sodium Chloride (Normal Saline) 1,000 mls @ 150 mls/hr IV ASDIRECTED [facility] Last Admin: 03/09/20 11:13 Dose: 150 mls/hr Documented by: Sodium Chloride (Normal Saline) 1,000 mls @ 125 mls/hr IV ASDIRECTED [facility] Last Admin: 03/12/20 07:03 Dose: 125 mls/hr Documented by: Linezolid 600 mg/ Premix 300 mls @ 300 mls/hr IV Q12H [facility] Last Admin: 03/12/20 09:08 Dose: 300 mls/hr Documented by: Magnesium Sulfate (Magnesium Sulfate In Water Premix) 2 gm in 50 mls @ 25 mls/hr IV ONETIME ONE Stop: 03/10/20 11:47 Last Admin: 03/10/20 10:21 Dose: 25 mls/hr Documented by: Magnesium Sulfate (Magnesium Sulfate In Water Premix) 2 gm in 50 mls @ 25 mls/hr IV ONETIME ONE Stop: 03/11/20 13:08 Last Admin: 03/11/20 11:53 Dose: 25 mls/hr Documented by: Potassium Chloride 10 meq/ (Premix) 100 mls @ 100 mls/hr IV Q1H [facility] Stop: 03/12/20 15:14 Last Admin: 03/12/20 16:10 Dose: 100 mls/hr Documented by: Penicillin G Potassium 3 (millunits/ Sodium Chloride) 100 mls @ 66.667 mls/hr IV Q4H [facility] Last Admin: 03/16/20 20:51 Dose: 66.667 mls/hr Documented by: Magnesium Sulfate (Magnesium Sulfate In Water Premix) 2 gm in 50 mls @ 25 mls/hr IV ONETIME ONE Stop: 03/12/20 15:40 Last Admin: 03/12/20 14:58 Dose: 25 mls/hr Documented by: Magnesium Sulfate 2 gm/ Premix 50 mls @ 25 mls/hr IV ONETIME ONE Stop: 03/13/20 10:29 Last Admin: 03/13/20 09:04 Dose: 25 mls/hr Documented by: Iopamidol (Isovue-370 (76%)) 100 ml IVPUSH ONETIME ONE Stop: 03/08/20 19:43 Last Admin: 03/08/20 19:43 Dose: 100 ml Documented by: Levothyroxine Sodium (Synthroid) 50 mcg PO ACBREAKFAST [facility] Last Admin: 03/15/20 05:14 Dose: 50 mcg Documented by: Magnesium Hydroxide (Milk Of Magnesia) 30 ml PO ONETIME ONE Stop: 03/10/20 06:01 Last Admin: 03/10/20 06:30 Dose: 30 ml Documented by: Colestipol 1 Gm - Pt ('s Own Med) 0 gm PO BID [facility] Last Admin: 03/13/20 23:22 Dose: Not Given Documented by: Ondansetron HCl (Zofran) 4 mg IVPUSH ONETIME ONE Stop: 03/08/20 16:58 Last Admin: 03/08/20 17:30 Dose: 4 mg Documented by: Potassium Chloride (Klor-Con 10) 10 meq PO DAILY [facility] Last Admin: 03/13/20 08:02 Dose: 10 meq Documented by: Potassium Chloride (Klor-Con M20) 20 meq PO ONETIME ONE Stop: 03/11/20 11:10 Last Admin: 03/11/20 11:50 Dose: 20 meq Documented by: Potassium Chloride (Klor-Con M20) 40 meq PO ONETIME ONE Stop: 03/12/20 21:01 Last Admin: 03/12/20 21:15 Dose: 40 meq Documented by: Potassium Chloride (Klor-Con M20) 40 meq PO BID [facility] Stop: 03/13/20 21:01 Last Admin: 03/13/20 22:29 Dose: 40 meq Documented by: Potassium Chloride (Klor-Con M20) 20 meq PO ONETIME ONE Stop: 03/15/20 17:00 Last Admin: 03/15/20 17:23 Dose: 20 meq Documented by: - Exam Quality Assessment: Reports: Supplemental Oxygen, Central Line/PICC, Urine Catheter General: Reports: Alert, Oriented, Cooperative HEENT: Reports: Pupils Equal, Pupils Reactive, EOMI Neck: Reports: Supple, Trachea Midline Lungs: Reports: Clear to Auscultation, Normal Respiratory Effort Cardiovascular: Reports: Regular Rate, Regular Rhythm GI/Abdominal Exam: Normal Bowel Sounds, Soft, No Distention (Male) Exam: Deferred Rectal (Males) Exam: Deferred Back Exam: Reports: Normal Inspection, Full Range of Motion Extremities: Normal Inspection, No Pedal Edema Skin: Reports: Warm, Dry, Intact Neurological: Denies: Normal Gait (Patient is using walker) Psy/Mental Status: Reports: Alert, Normal Affect *Q Meaningful Use (DIS) - VTE *Q VTE Pharmacological Contraindications *Q: Risk of Bleeding
== END 2020-03-17 15:55 | disposition home health service (06) | DRG 699 ==
LOC: JD.ED 16:35 → JD.MS 21:20
PROVIDERS: ADMIT Internal Medicine; ATTEND Internal Medicine
DX: T83.511A Infection and inflammatory reaction due to indwelling urethral catheter, initial encounter (principal); R50.9 Fever, unspecified; R78.81 Bacteremia; H54.7 Unspecified visual loss; H91.90 Unspecified hearing loss, unspecified ear; E78.00 Pure hypercholesterolemia, unspecified; K21.9 Gastro-esophageal reflux disease without esophagitis; I38 Endocarditis, valve unspecified; N39.0 Urinary tract infection, site not specified; N18.9 Chronic kidney disease, unspecified; B95.2 Enterococcus as the cause of diseases classified elsewhere; E11.22 Type 2 diabetes mellitus with diabetic chronic kidney disease; Z93.6 Other artificial openings of urinary tract status; E83.51 Hypocalcemia; E83.42 Hypomagnesemia; E66.9 Obesity, unspecified; Z20.828 Contact with and (suspected) exposure to other viral communicable diseases; Z88.8 Allergy status to other drugs, medicaments and biological substances; I12.9 Hypertensive chronic kidney disease with stage 1 through stage 4 chronic kidney disease, or unspecified chronic kidney disease; Z79.890 Hormone replacement therapy; Z79.4 Long term (current) use of insulin; M19.90 Unspecified osteoarthritis, unspecified site; D63.1 Anemia in chronic kidney disease; E03.9 Hypothyroidism, unspecified; N40.1 Benign prostatic hyperplasia with lower urinary tract symptoms; E66.01 Morbid (severe) obesity due to excess calories; N18.30 Chronic kidney disease, stage 3 unspecified; R31.9 Hematuria, unspecified; R09.02 Hypoxemia; I48.91 Unspecified atrial fibrillation; R33.8 Other retention of urine; Y84.6 Urinary catheterization as the cause of abnormal reaction of the patient, or of later complication, without mention of misadventure at the time of the procedure; Z68.22 Body mass index [BMI] 22.0-22.9, adult; Z79.82 Long term (current) use of aspirin; Z79.01 Long term (current) use of anticoagulants; Z85.51 Personal history of malignant neoplasm of bladder; Z98.49 Cataract extraction status, unspecified eye; Z87.19 Personal history of other diseases of the digestive system; Z79.899 Other long term (current) drug therapy
CPT/HCPCS: 36415; 71045; 71275; 80053; 81001; 82728; 83605; 83615; 84484; 85025; 85379; 86140; 87040 ×2; 87070; 87077; 87088; 87186; 93005; 93970; A9270; J0696; J2405; J7030; J7050; Q9967; U0002; 80048; 82962; 83735; 84100; 87641; 93010; 93306; 94760; 94761; 96365; 96375; 97110-GP; 97116-GP; 97162-GP; 97165-GO; 97530-GO; 97530-GP; 97535-GO; 99285; 99285-25; J0610; J1815-GY; J2020; J2540; J3475; J3480

== ENCOUNTER 2020-04-09 16:05 | Emergency (ER) | payer MEDICARE, BC ==
[2020-04-09 16:49] VITALS: BP 138/57; PULSE 67
--- NOTE | 2020-04-09 17:54 | EDM.PDOC ---
ED HPI GENERAL MEDICAL PROBLEM - General Chief Complaint: Genitourinary Problem Stated Complaint: CATHETER ISSUES Time Seen by Provider: 04/09/20 16:41 Source of Information: Reports: Patient, RN Notes Reviewed History Limitations: Reports: No Limitations - History of Present Illness INITIAL COMMENTS - FREE TEXT/NARRATIVE: Patient is an 84-year-old male who presents to the ED for the evaluation of a possible UTI. Patient lives at an assisted living, and was told to us by staff that his urine has been increasingly cloudy in his catheter, very foul-smelling, and the patient has been acting more strange that he normally does. His primary care provider is Dr. Jimenes, he was also stated that they wanted to have his urine checked at this time. He is not had any fevers or chills, or any nausea and vomiting that he has been aware of. He is not complaining of any back pain, or low abdomen pain. There is a small skin flap type laceration to the crown of his head. I did asked the patient if he had fallen, and he was unsure of this. - Related Data Allergies Allergy/AdvReac Type Severity Reaction Status Date / Time ZULY Inhibitors Allergy Cannot Verified 04/09/20 16:39 Remember lisinopril Allergy Cannot Verified 04/09/20 16:39 Remember simvastatin Allergy Cannot Verified 04/09/20 16:39 Remember Home Meds: Home Meds Aspirin 81 mg PO DAILY 02/07/20 [History] Colestipol [Colestipol HCl] 1 gm PO BID 02/07/20 [History] Empagliflozin [Jardiance] 25 mg PO DAILY 02/07/20 [History] Furosemide [Lasix] 20 mg PO TID 02/07/20 [History] Levothyroxine [Synthroid] 50 mcg PO ACBREAKFAST 02/07/20 [History] Metoprolol Tartrate [Lopressor] 50 mg PO BID 02/07/20 [History] Omeprazole 20 mg PO DAILY 02/07/20 [History] Potassium Chloride 10 meq PO DAILY 02/07/20 [History] Triamcinolone Acetonide [Triamcinolone Acetonide 0.5%] 0.5 percent TOP BID 02/07/20 [History] Valsartan 320 mg PO DAILY 02/07/20 [History] Cholecalciferol (Vitamin D3) [Vitamin D3] 1,000 unit PO DAILY 03/08/20 [History] Insulin Glarg,Human.Rec.Analog [Lantus] 40 units SQ BID 03/08/20 [History] Timolol [Betimol] 10 ml OP BID 04/09/20 [History] levoFLOXacin [Levaquin] 500 mg PO DAILY #7 tab 04/09/20 [Rx] Past Medical History HEENT History: Reports: Hard of Hearing, Impaired Vision Other HEENT History: Glasses - not here. 1 hearing aid to right ear. [facility]. Cardiovascular History: Reports: High Cholesterol, Hypertension Respiratory History: Reports: None Gastrointestinal History: Reports: GERD Genitourinary History: Reports: BPH, Chronic Renal Insuffiency, Retention, Urinary Musculoskeletal History: Reports: Arthritis Neurological History: Reports: None Psychiatric History: Reports: None Endocrine/Metabolic History: Reports: Diabetes, Type II, Hypothyroidism, Obesity/BMI 30+ Immunologic History: Reports: None Oncologic (Cancer) History: Reports: Bladder Dermatologic History: Reports: None - Infectious Disease History Infectious Disease History: Reports: Chicken Pox, Mumps - Past Surgical History Head Surgeries/Procedures: Reports: None HEENT Surgical History: Reports: Cataract Surgery Male Surgical History: Reports: Circumcision, TURBT-Transurethral Resection of Bladder Tumor Musculoskeletal Surgical History: Reports: Carpal Tunnel, Knee Replacement Social & Family History - Family History Family Medical History: No Pertinent Family History - Tobacco Use Tobacco Use Status *Q: Never Tobacco User - Caffeine Use Caffeine Use: Reports: Coffee - Recreational Drug Use Recreational Drug Use: No - Living Situation & Occupation Living situation: Reports: Single, Alone, Assisted Living ([facility]) Occupation: Retired ED ROS GENERAL - Review of Systems Review Of Systems: Comprehensive ROS is negative, except as noted in HPI. ED EXAM, RENAL/ - Physical Exam Exam: See Below Exam Limited By: No Limitations General Appearance: Alert, WD/WN, No Apparent Distress Head: Other (2cm superficial skin flap laceration to crown of head) Respiratory/Chest: No Respiratory Distress, Lungs Clear, Normal Breath Sounds, No Accessory Muscle Use, Chest Non-Tender Cardiovascular: Normal Peripheral Pulses, Regular Rate, Rhythm, No Murmur GI/Abdominal: Normal Bowel Sounds, Soft, Non-Tender, No Distention, No Mass Extremities: Normal Inspection, Normal Capillary Refill Neurological: Alert, Oriented, Normal Cognition, No Motor/Sensory Deficits Psychiatric: Normal Affect, Normal Mood Skin Exam: Warm, Dry, Intact, Normal Color, No Rash Course - Vital Signs Last Recorded V/S: Last Vital Signs Temp 97.0 F 04/09/20 16:47 Pulse 67 04/09/20 16:47 Resp 18 04/09/20 16:47 BP 138/57 L 04/09/20 16:47 Pulse Ox 100 04/09/20 16:47 - Orders/Labs/Meds Orders: Active Orders 24 hr Category Date Time Status CULTURE URINE [RM] Routine Lab 04/09/20 18:00 Received Sodium Chloride 0.9% [Normal Saline] 1,000 ml Med 04/09/20 18:45 Active IV ONETIME Medication Orders Sodium Chloride (Normal Saline) 1,000 mls @ 500 mls/hr IV ONETIME ONE Stop: 04/09/20 20:44 Last Admin: 04/09/20 18:53 Dose: 500 mls/hr Documented by: [email or web address] Labs: Laboratory Tests 04/09/20 04/09/20 04/09/20 Range/Units 16:54 17:52 17:52 WBC 6.54 (4.23-9.07) K/mm3 RBC 3.50 L (4.63-6.08) M/mm3 Hgb 10.1 L (13.7-17.5) gm/dl Hct 32.2 L (40.1-51.0) % MCV 92.0 (79.0-92.2) fl MCH 28.9 (25.7-32.2) pg MCHC 31.4 L (32.2-35.5) g/dl RDW Std Deviation 46.3 H (35.1-43.9) fL Plt Count 159 L D (163-337) K/mm3 MPV 10.5 (9.4-12.3) fl Neut % (Auto) 55.4 (34.0-67.9) % Lymph % (Auto) 32.4 (21.8-53.1) % [place]cock % (Auto) 8.3 (5.3-12.2) % Eos % (Auto) 3.4 (0.8-7.0) Baso % (Auto) 0.2 (0.1-1.2) % Neut # (Auto) 3.63 (1.78-5.38) K/mm3 Lymph # (Auto) 2.12 (1.32-3.57) K/mm3 [place] # (Auto) 0.54 (0.30-0.82) K/mm3 Eos # (Auto) 0.22 (0.04-0.54) K/mm3 Baso # (Auto) 0.01 (0.01-0.08) K/mm3 Sodium 137 (136-145) mEq/L Potassium 4.5 (3.5-5.1) mEq/L Chloride 101 (98-107) mEq/L Carbon Dioxide 23 (21-32) mEq/L Anion Gap 17.5 H (5-15) BUN 26 H (7-18) mg/dL Creatinine 2.2 H (0.7-1.3) mg/dL Est Cr Clr Drug Dosing 23.37 mL/min Estimated GFR (MDRD) 29 (>60) mL/min BUN/Creatinine Ratio 11.8 L (14-18) Glucose 190 H (83-115) mg/dL Calcium 8.9 (8.5-10.1) mg/dL Total Bilirubin 0.6 (0.2-1.0) mg/dL AST 11 L (15-37) U/L ALT 14 L (16-63) U/L Alkaline Phosphatase 100 (46-116) U/L Total Protein 7.6 (6.4-8.2) g/dl Albumin 3.0 L (3.4-5.0) g/dl Globulin 4.6 gm/dL Albumin/Globulin Ratio 0.7 L (1-2) Urine Color Yellow (Yellow) Urine Appearance Turbid H (Clear) Urine pH 5.5 (5.0-8.0) Ur Specific [place] 1.020 (1.005-1.030) Urine Protein 2+ H (Negative) Urine Glucose (UA) 2+ H (Negative) Urine Ketones Negative (Negative) Urine Occult Blood 3+ H (Negative) Urine Nitrite Positive H (Negative) Urine Bilirubin Negative (Negative) Urine Urobilinogen 0.2 (0.2-1.0) Ur Leukocyte Esterase 3+ H (Negative) Urine RBC 10-20 H (0-5) /hpf Urine WBC 75-100 H (0-5) /hpf Urine WBC Clumps Few (NOT SEEN) /hpf Ur Squamous Epith Cells Not seen (0-5) /hpf Urine Bacteria Moderate H (FEW) /hpf Urine Mucus Few (FEW) /hpf Meds: Medications Generic Name Dose Route Start Last Admin Trade Name Freq PRN Reason Stop Dose Admin Sodium Chloride 1,000 mls @ 500 mls/hr 04/09/20 18:45 04/09/20 18:53 Normal Saline IV 04/09/20 20:44 500 mls/hr ONETIME ONE Administration Discontinued Medications Generic Name Dose Route Start Last Admin Trade Name Freq PRN Reason Stop Dose Admin Levofloxacin 500 mg 04/09/20 18:20 04/09/20 18:52 Levaquin PO 04/09/20 18:21 500 mg ONETIME ONE Administration - Re-Assessments/Exams Free Text/Narrative Re-Assessment/Exam: 04/09/20 17:53 Patient presents to the ED for evaluation of his possible UTI. Will get a urine sample, and get basic lab work to check on kidney status and to see if there is any sort of infection. 04/09/20 18:53 Patient's urinalysis does appear grossly positive for UTI. Urine to be sent for culture to check for this. His last cultures did grow out Enterococcus faecalis sensitive to most antibiotics. He will get started on oral Levaquin, his metabolic panel is impressive for an elevated creatinine at 2.2, and a low GFR at 29. He will be given some IV fluids, for suspected dehydration and acute renal failure. Does appear that this happens when he gets a UTI. His white cell count is normal, and does not designate systemic infection at this time. I am hopeful that he will be able to get sent home after the IV fluids. 04/09/20 19:05 It does appear that the patient has a history of renal failure. Again I am hopeful after his fluids, we can get him home without concern, I do not believe he is going to require hospitalization at this time. He is still able to tolerate medications by mouth and outpatient antibiotic should be trialed first before IV therapy needs to be started. Departure - Departure Time of Disposition: 20:00 Disposition: Home, Self-Care 01 Condition: Good Clinical Impression: UTI (urinary tract infection) due to urinary indwelling catheter Qualifiers: Indwelling urinary catheter type: indwelling urethral catheter Encounter type: initial encounter Qualified Code(s): T83.511A - Infection and inflammatory reaction due to indwelling urethral catheter, initial encounter Chronic renal insufficiency Qualifiers: Chronic kidney disease stage: unspecified stage Qualified Code(s): N18.9 - Chronic kidney disease, unspecified - Discharge Information *PRESCRIPTION DRUG MONITORING PROGRAM REVIEWED*: No *COPY OF PRESCRIPTION DRUG MONITORING REPORT IN PATIENT MICHELLE: No Prescriptions: levoFLOXacin [Levaquin] 500 mg PO DAILY #7 tab Instructions: Urinary Tract Infection, Adult, [id number] Forms: ED Department Discharge Care Plan Goals: You have been evaluated in the ED for your urinary symptoms. Your urinalysis was consistent with an acute urinary tract infection. Your urine was sent for culture, and you will be notified if you should need a change in your antibiotic. This may take up to 48 hours to result. You have been given a prescription for Levofloxacin, 500 mg 1 tablet daily for 7 days. This has been electronically sent to the [facility] located in the [email or web address] [facility]. Please increase your oral fluid intake and try to stay adequately hydrated. You were also given a liter of IV fluids in the ER as you were found to be somewhat dehydrated. Please return to the ED if your symptoms change or worsen. Sepsis Event Note (ED) - Evaluation Sepsis Screening Result: No Definite Risk - Focused Exam Vital Signs: Vital Signs Temp Pulse Resp BP Pulse Ox 04/09/20 16:47 97.0 F 67 18 138/57 L 100 - My Orders Last 24 Hours: My Active Orders 04/09/20 18:00 CULTURE URINE [RM] Routine 04/09/20 18:45 Sodium Chloride 0.9% [Normal Saline] 1,000 ml IV ONETIME - Assessment/Plan Last 24 Hours: My Active Orders 04/09/20 18:00 CULTURE URINE [RM] Routine 04/09/20 18:45 Sodium Chloride 0.9% [Normal Saline] 1,000 ml IV ONETIME
[2020-04-09] MEDS ORDERED: Levofloxacin 500 MG Tab PO ONE (18:20)
[2020-04-09] MEDS ORDERED: Sodium Chloride 0.9% 1,000 ML IV ONE (18:45)
== END 2020-04-09 21:19 | disposition home or self-care (01) ==
LOC: JD.ED 16:05
DX: T83.511A Infection and inflammatory reaction due to indwelling urethral catheter, initial encounter (principal); N39.0 Urinary tract infection, site not specified; I12.9 Hypertensive chronic kidney disease with stage 1 through stage 4 chronic kidney disease, or unspecified chronic kidney disease; E11.22 Type 2 diabetes mellitus with diabetic chronic kidney disease; N18.9 Chronic kidney disease, unspecified; E78.00 Pure hypercholesterolemia, unspecified; K21.9 Gastro-esophageal reflux disease without esophagitis; M19.90 Unspecified osteoarthritis, unspecified site; E03.9 Hypothyroidism, unspecified; E66.9 Obesity, unspecified; Z68.37 Body mass index [BMI] 37.0-37.9, adult; Z88.8 Allergy status to other drugs, medicaments and biological substances; Z79.82 Long term (current) use of aspirin; Z79.899 Other long term (current) drug therapy
CPT/HCPCS: 36415; 80053; 81001; 85025; 87086; 87088; 87186; 99283; A9270; J7030; 99284

== ENCOUNTER 2020-07-16 09:38 | Emergency (ER) | payer MEDICARE, BC ==
[2020-07-16 09:55] VITALS: BP 137/58; PULSE 54
--- NOTE | 2020-07-16 10:32 | EDM.PDOC ---
ED HPI GENERAL MEDICAL PROBLEM - General Chief Complaint: Back Pain or Injury Stated Complaint: [facility] Time Seen by Provider: 07/16/20 10:03 Source of Information: Reports: Patient, Old Records, RN Notes Reviewed - History of Present Illness INITIAL COMMENTS - FREE TEXT/NARRATIVE: 84 yr old male fell backwards last evening "landing on his butt". He was able to get up and walk without difficulty right after the fall. Started having pain low back later in the evening. This AM finding it very difficulty to move due to pain low mid back without radiation. No other pain or injury. Pain does not radiate down either leg. Lower Back Pain Score (Numeric/FACES): 4 - Related Data Allergies Allergy/AdvReac Type Severity Reaction Status Date / Time ZULY Inhibitors Allergy Cannot Verified 07/16/20 09:43 Remember lisinopril Allergy Cannot Verified 07/16/20 09:43 Remember simvastatin Allergy Cannot Verified 07/16/20 09:43 Remember Home Meds: Home Meds Aspirin 81 mg PO DAILY 02/07/20 [History] Colestipol [Colestipol HCl] 1 gm PO BID 02/07/20 [History] Empagliflozin [Jardiance] 25 mg PO DAILY 02/07/20 [History] Furosemide [Lasix] 20 mg PO TID 02/07/20 [History] Levothyroxine [Synthroid] 50 mcg PO ACBREAKFAST 02/07/20 [History] Metoprolol Tartrate [Lopressor] 50 mg PO BID 02/07/20 [History] Omeprazole 20 mg PO DAILY 02/07/20 [History] Potassium Chloride 10 meq PO DAILY 02/07/20 [History] Triamcinolone Acetonide [Triamcinolone Acetonide 0.5%] 0.5 percent TOP BID 02/07/20 [History] Valsartan 320 mg PO DAILY 02/07/20 [History] Cholecalciferol (Vitamin D3) [Vitamin D3] 1,000 unit PO DAILY 03/08/20 [History] Insulin Glarg,Human.Rec.Analog [Lantus] 40 units SQ BID 03/08/20 [History] Timolol [Betimol] 10 ml OP BID 04/09/20 [History] Acetaminophen/HYDROcodone [Mission 325-5 MG] 0.5 tab PO Q8HR #20 tablet 07/16/20 [Rx] Fluticasone Propionate [Flonase] 16 gm NS ASDIRECTED PRN 07/16/20 [History] Sodium Bicarbonate 1 tab PO BID 07/16/20 [History] Past Medical History HEENT History: Reports: Hard of Hearing, Impaired Vision Other HEENT History: Glasses - not here. 1 hearing aid to right ear. [facility]. Cardiovascular History: Reports: High Cholesterol, Hypertension Respiratory History: Reports: None Gastrointestinal History: Reports: GERD Genitourinary History: Reports: BPH, Chronic Renal Insuffiency, Retention, Urinary Musculoskeletal History: Reports: Arthritis Neurological History: Reports: None Psychiatric History: Reports: None Endocrine/Metabolic History: Reports: Diabetes, Type II, Hypothyroidism, Obesity/BMI 30+ Hematologic History: Reports: None Immunologic History: Reports: None Oncologic (Cancer) History: Reports: Bladder Dermatologic History: Reports: None - Infectious Disease History Infectious Disease History: Reports: Chicken Pox, Mumps - Past Surgical History Head Surgeries/Procedures: Reports: None HEENT Surgical History: Reports: Cataract Surgery Male Surgical History: Reports: Circumcision, TURBT-Transurethral Resection of Bladder Tumor Other Male Surgeries/Procedures: chronic Tang catheter - has had it a little over a month. Never circumcised - circumcised about a month ago due to decrease stream from foreskin growth. Unable to void due to urinary retention. Saw a urologist who has now stated that he will have his tang catheter forever. Musculoskeletal Surgical History: Reports: Carpal Tunnel, Knee Replacement Other Musculoskeletal Surgeries/Procedures:: rught Social & Family History - Family History Family Medical History: No Pertinent Family History - Tobacco Use Tobacco Use Status *Q: Never Tobacco User - Caffeine Use Caffeine Use: Reports: Soda, Tea - Recreational Drug Use Recreational Drug Use: No - Living Situation & Occupation Living situation: Reports: Single, Alone, Assisted Living ([place]) Occupation: Retired ED ROS GENERAL - Review of Systems Review Of Systems: See Below Constitutional: Denies: Fever, Chills, Diaphoresis HEENT: Reports: No Symptoms Respiratory: Denies: Shortness of Breath, Hemoptysis GI/Abdominal: Denies: Abdominal Pain, Nausea, Vomiting Musculoskeletal: Denies: Neck Pain Skin: Reports: No Symptoms Neurological: Denies: Numbness, Tingling, Trouble Speaking, Weakness ED EXAM,LOWER BACK PAIN/INJURY - Physical Exam Exam: See Below General Appearance: Alert, No Apparent Distress (at rest not moving) Head: Atraumatic Neck: Supple, Non-Tender Respiratory/Chest: No Respiratory Distress, Lungs Clear, Normal Breath Sounds Cardiovascular: Regular Rate, Rhythm GI/Abdominal: Soft, Non-Tender Back Exam: Vertebral Tenderness (low mid back) Extremities: Normal Inspection, Normal Range of Motion Neurological: Alert, No Motor/Sensory Deficits Skin Exam: Warm, Dry, Normal Color Course - Vital Signs Last Recorded V/S: Last Vital Signs Temp 96.5 F L 07/16/20 09:52 Pulse 54 L 07/16/20 09:52 Resp 20 07/16/20 09:52 BP 137/58 L 07/16/20 09:52 Pulse Ox 100 07/16/20 09:52 - Orders/Labs/Meds Labs: Laboratory Tests 07/16/20 07/16/20 Range/Units 10:17 10:17 WBC 6.43 (4.23-9.07) K/mm3 RBC 3.82 L (4.63-6.08) M/mm3 Hgb 10.9 L (13.7-17.5) gm/dl Hct 34.7 L (40.1-51.0) % MCV 90.8 (79.0-92.2) fl MCH 28.5 (25.7-32.2) pg MCHC 31.4 L (32.2-35.5) g/dl RDW Std Deviation 44.5 H (35.1-43.9) fL Plt Count 211 (163-337) K/mm3 MPV 9.6 (9.4-12.3) fl Neut % (Auto) 53.4 (34.0-67.9) % Lymph % (Auto) 37.8 (21.8-53.1) % [place] % (Auto) 5.9 (5.3-12.2) % Eos % (Auto) 2.5 (0.8-7.0) Baso % (Auto) 0.2 (0.1-1.2) % Neut # (Auto) 3.44 (1.78-5.38) K/mm3 Lymph # (Auto) 2.43 (1.32-3.57) K/mm3 [place] # (Auto) 0.38 (0.30-0.82) K/mm3 Eos # (Auto) 0.16 (0.04-0.54) K/mm3 Baso # (Auto) 0.01 (0.01-0.08) K/mm3 Sodium 141 (136-145) mEq/L Potassium 4.0 (3.5-5.1) mEq/L Chloride 103 (98-107) mEq/L Carbon Dioxide 23 (21-32) mEq/L Anion Gap 19.0 H (5-15) BUN 15 (7-18) mg/dL Creatinine 1.5 H (0.7-1.3) mg/dL Est Cr Clr Drug Dosing 39.74 mL/min Estimated GFR (MDRD) 45 (>60) mL/min BUN/Creatinine Ratio 10.0 L (14-18) Glucose 142 H (83-115) mg/dL Calcium 9.5 (8.5-10.1) mg/dL Total Bilirubin 0.6 (0.2-1.0) mg/dL AST 14 L (15-37) U/L ALT 14 L (16-63) U/L Alkaline Phosphatase 82 (46-116) U/L Total Protein 7.2 (6.4-8.2) g/dl Albumin 2.9 L (3.4-5.0) g/dl Globulin 4.3 gm/dL Albumin/Globulin Ratio 0.7 L (1-2) Meds: Medications Discontinued Medications Generic Name Dose Route Start Last Admin Trade Name Freq PRN Reason Stop Dose Admin Acetaminophen 975 mg 07/16/20 13:25 07/16/20 13:34 Tylenol PO 07/16/20 13:26 975 mg NOW ONE Administration Sodium Chloride 1,000 mls @ 999 mls/hr 07/16/20 13:30 07/16/20 13:34 Normal Saline IV 999 mls/hr ONETIME SHELL Administration - Re-Assessments/Exams Free Text/Narrative Re-Assessment/Exam: 07/17/20 14:27 CT f lumbar and thoracic spine show very small endplate compression L1. See Radiology report for details. We did give him dilaudid 0.[address] IV prior to CT. He was allowed to rest quite awhile after that awaiting Radiologist report and disposition. He was able to get up and move very well on his own with walker. Discharge instr. as documented. He lives at [facility]. Departure - Departure Time of Disposition: 15:01 Disposition: Home, Self-Care 01 Condition: Fair Clinical Impression: Compression fracture, Back pain Fall Qualifiers: Encounter type: initial encounter Qualified Code(s): W19.XXXA - Unspecified fall, initial encounter - Discharge Information Prescriptions: Acetaminophen/HYDROcodone [Mission 325-5 MG] 0.5 tab PO Q8HR #20 tablet Instructions: Fall Prevention in the Home, Adult, Spinal Compression Fracture Referrals: Yimi Jimenes MD [Primary Care Provider] - Forms: ED Department Discharge Additional Instructions: Continue to use walker at all times. Tylenol 500 mg 3 times daily. 1/2 table hydrocodone in between doses of tylenol if needed for further pain relief. Prescription has been sent to [facility] at the [facility]. There is a very slight compression fracture of L1. This will heal on its own with time. See your medical provider as needed. Return to ED as needed. Sepsis Event Note (ED) - Evaluation Sepsis Screening Result: No Definite Risk
--- NOTE | 2020-07-16 12:07 | CT ---
CT lumbar spine Technique: Multiple axial sections were obtained through the lumbar spine. Reconstructed coronal and sagittal images were obtained. Comparison: Prior CT abdomen and pelvis and reconstructed sagittal views of 11/21/14. Findings: Disc space narrowing is noted L4-5 and L5-S1. Vertebral body heights are maintained. Scattered disc space narrowing and posterior osteophytes are seen. Degenerative apophyseal change is seen within the lower lumbar spine. There is a very slight superior endplate concavity of L1 which is an interval change from prior study and is most likely acute. No additional fracture or other abnormality is appreciated. Impression: 1. Slight endplate concavity within L1 which is most likely acute. 2. Degenerative change as noted above which is stable from prior CT exam. Diagnostic code #3
--- NOTE | 2020-07-16 12:08 | CT ---
CT thoracic spine Technique: Multiple axial sections through the thoracic spine were obtained. Reconstructed coronal and sagittal images were obtained. Comparison: No prior thoracic spine imaging. Findings: Diffuse disc space narrowing is noted within the visualized cervical spine and throughout the thoracic spine. Scattered anterior osteophytes are seen. Mild posterior osteophytes are also seen within the cervical spine. Thoracic spine shows no evidence of central canal stenosis. No discrete areas of neural foraminal narrowing is seen. Small bony density is noted off the inferior and posterior spinous process of T1. Uncertain if this is due to an acute small fracture or is old. Similar finding which shows sclerosis is noted within the spinous process of T4. No other acute fracture or other abnormality is appreciated. Ectasia is noted of the proximal portion of the descending thoracic aorta. Impression: 1. Very small bony densities off the inferior and posterior spinous process of T1 which could be old or acute representing minimal fracture. Old similar findings are noted within T4. 2. Diffuse degenerative change as noted above. 3. No other acute abnormality is appreciated. Diagnostic code #2
[2020-07-16] MEDS ORDERED: Acetaminophen 325 MG Tab PO ONE (13:25)
[2020-07-16] MEDS ORDERED: Sodium Chloride 0.9% 1,000 ML IV SCH (13:30)
== END 2020-07-16 15:27 | disposition home or self-care (01) ==
LOC: JD.ED 09:38
DX: S22.019A Unspecified fracture of first thoracic vertebra, initial encounter for closed fracture (principal); I12.9 Hypertensive chronic kidney disease with stage 1 through stage 4 chronic kidney disease, or unspecified chronic kidney disease; N18.9 Chronic kidney disease, unspecified; E11.22 Type 2 diabetes mellitus with diabetic chronic kidney disease; E03.9 Hypothyroidism, unspecified; K21.9 Gastro-esophageal reflux disease without esophagitis; E66.9 Obesity, unspecified; M19.90 Unspecified osteoarthritis, unspecified site; Z88.8 Allergy status to other drugs, medicaments and biological substances; Z79.82 Long term (current) use of aspirin; Z79.899 Other long term (current) drug therapy; Z79.4 Long term (current) use of insulin; W19.XXXA Unspecified fall, initial encounter
CPT/HCPCS: 36415; 72128; 72131; 80053; 85025; 99284; A9270; J7030

== ENCOUNTER 2020-10-11 06:35 | Emergency (ER) | payer MEDICARE, BC ==
--- NOTE | 2020-10-11 06:54 | EDM.PDOC ---
ED HPI GENERAL MEDICAL PROBLEM - General Chief Complaint: Genitourinary Problem Stated Complaint: [facility] Time Seen by Provider: 10/11/20 06:45 - History of Present Illness INITIAL COMMENTS - FREE TEXT/NARRATIVE: 84-year-old male brought in to the emergency room by EMS from the [facility] because his catheter is not working. It is reported he is having lots of urine drainage around the outside of his catheter. Also the patient was diagnosed with a urinary tract infection and started on Cipro yesterday. Other than this area the patient denies any pain he is not have any breathing difficulties or shortness of breath. He denies fevers or chills. No other complaints at this time. - Related Data Allergies Allergy/AdvReac Type Severity Reaction Status Date / Time ZULY Inhibitors Allergy Cannot Verified 10/11/20 06:41 Remember lisinopril Allergy Cannot Verified 10/11/20 06:41 Remember simvastatin Allergy Cannot Verified 10/11/20 06:41 Remember Home Meds: Home Meds Aspirin 81 mg PO DAILY 02/07/20 [History] Colestipol [Colestipol HCl] 1 gm PO BID 02/07/20 [History] Empagliflozin [Jardiance] 25 mg PO DAILY 02/07/20 [History] Furosemide [Lasix] 20 mg PO ACBREAKFAST 02/07/20 [History] Levothyroxine [Synthroid] 50 mcg PO ACBREAKFAST 02/07/20 [History] Omeprazole 20 mg PO DAILY 02/07/20 [History] Valsartan 80 mg PO DAILY 02/07/20 [History] Cholecalciferol (Vitamin D3) [Vitamin D3] 1,000 unit PO DAILY 03/08/20 [History] Insulin Glarg,Human.Rec.Analog [Lantus] 40 units SQ BID 03/08/20 [History] Timolol [Betimol] 10 ml OP BID 04/09/20 [History] Fluticasone Propionate [Flonase] 16 gm NS ASDIRECTED PRN 07/16/20 [History] Sodium Bicarbonate 650 mg PO TID 07/16/20 [History] Acetaminophen [Non-Aspirin] 650 mg PO ASDIRECTED PRN 10/11/20 [History] Acetaminophen [Tylenol Arthritis] 650 mg PO BID 10/11/20 [History] Calcium Carbonate [Tums] 400 mg PO ASDIRECTED PRN 10/11/20 [History] Ciprofloxacin [Ciprofloxacin HCl] 250 mg PO BID 10/11/20 [History] Docusate Sodium [Colace] 100 mg PO DAILY 10/11/20 [History] Furosemide [Lasix] 40 mg PO BEDTIME 10/11/20 [History] LORazepam [Ativan] 0.5 mg PO Q6H PRN 10/11/20 [History] Oxybutynin Chloride [Ditropan Xl] 10 mg PO DAILY 10/11/20 [History] Past Medical History HEENT History: Reports: Hard of Hearing, Impaired Vision Other HEENT History: Glasses - not here. 1 hearing aid to right ear. [facility] ago. Cardiovascular History: Reports: High Cholesterol, Hypertension Respiratory History: Reports: None Gastrointestinal History: Reports: GERD Genitourinary History: Reports: BPH, Chronic Renal Insuffiency, Retention, Urinary Musculoskeletal History: Reports: Arthritis Neurological History: Reports: None Psychiatric History: Reports: None Endocrine/Metabolic History: Reports: Diabetes, Type II, Hypothyroidism, Obesity/BMI 30+ Hematologic History: Reports: None Immunologic History: Reports: None Oncologic (Cancer) History: Reports: Bladder Dermatologic History: Reports: None - Infectious Disease History Infectious Disease History: Reports: Chicken Pox, Mumps - Past Surgical History Head Surgeries/Procedures: Reports: None HEENT Surgical History: Reports: Cataract Surgery Male Surgical History: Reports: Circumcision, TURBT-Transurethral Resection of Bladder Tumor Other Male Surgeries/Procedures: chronic Tang catheter - has had it a little over a month. Never circumcised - circumcised about a month ago due to decrease stream from foreskin growth. Unable to void due to urinary retention. Saw a urologist who has now stated that he will have his tang catheter forever. Musculoskeletal Surgical History: Reports: Carpal Tunnel, Knee Replacement Other Musculoskeletal Surgeries/Procedures:: rught Social & Family History - Family History Family Medical History: No Pertinent Family History - Caffeine Use Caffeine Use: Reports: Soda, Tea - Living Situation & Occupation Living situation: Reports: Single, Alone, Assisted Living ([facility]) Occupation: Retired ED ROS GENERAL - Review of Systems Review Of Systems: See Below Constitutional: Reports: No Symptoms. Denies: Fever, Chills Respiratory: Reports: No Symptoms Cardiovascular: Reports: No Symptoms GI/Abdominal: Reports: No Symptoms : Reports: Other (Urethral pain) ED EXAM, GENERAL - Physical Exam Exam: See Below Exam Limited By: No Limitations General Appearance: Alert, No Apparent Distress Respiratory/Chest: No Respiratory Distress, Lungs Clear, Normal Breath Sounds Cardiovascular: Regular Rate, Rhythm, No Edema, No Murmur GI/Abdominal: Normal Bowel Sounds, Soft, Non-Tender Course - Vital Signs Last Recorded V/S: Last Vital Signs Temp 37.1 C 10/11/20 06:41 Pulse 84 10/11/20 06:41 Resp 17 10/11/20 06:41 BP 101/65 10/11/20 06:41 Pulse Ox 98 10/11/20 06:41 - Re-Assessments/Exams Free Text/Narrative Re-Assessment/Exam: 10/11/20 07:02 The patient has Tang changed and is doing much better at this point the patient was started on Cipro for UTI on the 15th no point in checking a urine at this time. Nurses did state that his Tang was only in a couple of centimeters past the balloon and the balloon only had a couple mLs of solution in it. 10/11/20 07:07 At this time he has had over 50 cc out still draining. He was been leaking urine from his old catheter since before it was removed so this is not an accurate measurement, and I do not expect him to have a large residual. 10/11/20 07:18 Went back and looked he is got nearly 800 cc out. Departure - Departure Time of Disposition: 07:09 Disposition: DC/Tfer to SNF 03 Clinical Impression: Displacement of Tang catheter - Discharge Information Instructions: Indwelling Urinary Catheter Care, Adult Referrals: Yimi Jimenes MD [Primary Care Provider] - Forms: ED Department Discharge Additional Instructions: Return to the emergency room with any questions or problems. Follow-up with your regular provider as scheduled Sepsis Event Note (ED) - Focused Exam Vital Signs: Vital Signs Temp Pulse Resp BP Pulse Ox 10/11/20 06:41 37.1 C 84 17 101/65 98
[2020-10-11 08:20] VITALS: BP 104/68; PULSE 78
== END 2020-10-11 08:19 ==
LOC: JD.ED 06:35
DX: T83.028A Displacement of other urinary catheter, initial encounter (principal); M19.90 Unspecified osteoarthritis, unspecified site; I12.9 Hypertensive chronic kidney disease with stage 1 through stage 4 chronic kidney disease, or unspecified chronic kidney disease; N18.9 Chronic kidney disease, unspecified; E11.22 Type 2 diabetes mellitus with diabetic chronic kidney disease; E03.9 Hypothyroidism, unspecified; K21.9 Gastro-esophageal reflux disease without esophagitis; E66.9 Obesity, unspecified; Z68.32 Body mass index [BMI] 32.0-32.9, adult; Z88.8 Allergy status to other drugs, medicaments and biological substances; Z79.82 Long term (current) use of aspirin; Z79.4 Long term (current) use of insulin; Z79.899 Other long term (current) drug therapy
CPT/HCPCS: 51702; 99283; 99284-25

== ENCOUNTER 2021-05-07 18:17 | Emergency (ER) | payer MEDICARE, BC ==
[2021-05-07 18:51] VITALS: BP 185/93; PULSE 66
--- NOTE | 2021-05-07 18:57 | EDM.PDOC ---
ED HPI GENERAL MEDICAL PROBLEM - General Chief Complaint: Genitourinary Problem Stated Complaint: EMS Time Seen by Provider: 05/07/21 18:52 Source of Information: Reports: Patient, RN Notes Reviewed History Limitations: Reports: No Limitations - History of Present Illness INITIAL COMMENTS - FREE TEXT/NARRATIVE: Patient is an 85 year old male who presents to the ER today via ambulance service for the evaluation of a Tang catheter issue. States that he has a suprapubic catheter, that became dislodged and he is now having pain in his bladder, states that there is pressure and spasms noted. States he was due to have the suprapubic catheter changed this coming Monday. No associated fevers chills, cough or shortness of breath or any sort of nausea/vomiting/diarrhea. Bladder Pain Score (Numeric/FACES): 9 - Related Data Allergies Allergy/AdvReac Type Severity Reaction Status Date / Time ZULY Inhibitors Allergy Cannot Verified 10/11/20 06:41 Remember lisinopril Allergy Cannot Verified 10/11/20 06:41 Remember simvastatin Allergy Cannot Verified 10/11/20 06:41 Remember Home Meds: Home Meds Aspirin 81 mg PO DAILY 02/07/20 [History] Colestipol [Colestipol HCl] 1 gm PO BID 02/07/20 [History] Empagliflozin [Jardiance] 25 mg PO DAILY 02/07/20 [History] Furosemide [Lasix] 20 mg PO ACBREAKFAST 02/07/20 [History] Levothyroxine [Synthroid] 50 mcg PO ACBREAKFAST 02/07/20 [History] Omeprazole 20 mg PO DAILY 02/07/20 [History] Valsartan 80 mg PO DAILY 02/07/20 [History] Cholecalciferol (Vitamin D3) [Vitamin D3] 1,000 unit PO DAILY 03/08/20 [History] Insulin Glarg,Human.Rec.Analog [Lantus] 40 units SQ BID 03/08/20 [History] Timolol [Betimol] 10 ml OP BID 04/09/20 [History] Fluticasone Propionate [Flonase] 16 gm NS ASDIRECTED PRN 07/16/20 [History] Sodium Bicarbonate 650 mg PO TID 07/16/20 [History] Acetaminophen [Non-Aspirin] 650 mg PO ASDIRECTED PRN 10/11/20 [History] Acetaminophen [Tylenol Arthritis] 650 mg PO BID 10/11/20 [History] Calcium Carbonate [Tums] 400 mg PO ASDIRECTED PRN 10/11/20 [History] Ciprofloxacin [Ciprofloxacin HCl] 250 mg PO BID 10/11/20 [History] Docusate Sodium [Colace] 100 mg PO DAILY 10/11/20 [History] Furosemide [Lasix] 40 mg PO BEDTIME 10/11/20 [History] LORazepam [Ativan] 0.5 mg PO Q6H PRN 10/11/20 [History] Oxybutynin Chloride [Ditropan Xl] 10 mg PO DAILY 10/11/20 [History] Past Medical History HEENT History: Reports: Hard of Hearing, Impaired Vision Other HEENT History: Glasses - not here. 1 hearing aid to right ear. [facility]. Cardiovascular History: Reports: High Cholesterol, Hypertension Respiratory History: Reports: None Gastrointestinal History: Reports: GERD Genitourinary History: Reports: BPH, Chronic Renal Insuffiency, Retention, Urinary Musculoskeletal History: Reports: Arthritis Neurological History: Reports: None Psychiatric History: Reports: None Endocrine/Metabolic History: Reports: Diabetes, Type II, Hypothyroidism, Obesity/BMI 30+ Hematologic History: Reports: None Immunologic History: Reports: None Oncologic (Cancer) History: Reports: Bladder Dermatologic History: Reports: None - Infectious Disease History Infectious Disease History: Reports: Chicken Pox, Mumps - Past Surgical History Head Surgeries/Procedures: Reports: None HEENT Surgical History: Reports: Cataract Surgery Male Surgical History: Reports: Circumcision, TURBT-Transurethral Resection of Bladder Tumor Other Male Surgeries/Procedures: chronic Tang catheter - has had it a little over a month. Never circumcised - circumcised about a month ago due to decrease stream from foreskin growth. Unable to void due to urinary retention. Saw a urologist who has now stated that he will have his tang catheter forever. Musculoskeletal Surgical History: Reports: Carpal Tunnel, Knee Replacement Other Musculoskeletal Surgeries/Procedures:: rught Social & Family History - Family History Family Medical History: No Pertinent Family History - Caffeine Use Caffeine Use: Reports: Soda, Tea - Living Situation & Occupation Living situation: Reports: Single, Alone, Assisted Living ([facility]) Occupation: Retired ED ROS GENERAL - Review of Systems Review Of Systems: Comprehensive ROS is negative, except as noted in HPI. ED EXAM, RENAL/ - Physical Exam Exam: See Below Exam Limited By: No Limitations General Appearance: Alert, WD/WN, No Apparent Distress Respiratory/Chest: No Respiratory Distress, Lungs Clear, Normal Breath Sounds, No Accessory Muscle Use, Chest Non-Tender Cardiovascular: Normal Peripheral Pulses, Regular Rate, Rhythm, No Edema GI/Abdominal: Normal Bowel Sounds, Soft, No Distention, No Mass, Tender (suprapubic/around cath with fullness appreciated) Extremities: Normal Inspection, Normal Capillary Refill Neurological: Alert, Oriented, Normal Cognition, No Motor/Sensory Deficits Psychiatric: Normal Affect, Normal Mood Skin Exam: Warm, Dry, Intact, Normal Color, No Rash Course - Vital Signs Last Recorded V/S: Last Vital Signs Temp 98.9 F 05/07/21 18:17 Pulse 66 05/07/21 18:17 Resp 16 05/07/21 18:17 BP 185/93 H 05/07/21 18:17 Pulse Ox 98 05/07/21 18:17 - Orders/Labs/Meds Orders: Active Orders 24 hr Category Date Time Status Insert Tang Catheter [Insert Urinary Catheter] [OM.PC] Care 05/07/21 18:54 Ordered Stat CULTURE URINE [MREF] Stat Lab 05/07/21 18:40 Received Labs: Laboratory Tests 05/07/21 Range/Units 18:40 Urine Color Light yellow (Yellow) Urine Appearance Cloudy H (Clear) Urine pH 7.0 (5.0-8.0) Ur Specific [place] 1.015 (1.005-1.030) Urine Protein 2+ H (Negative) Urine Glucose (UA) 2+ H (Negative) Urine Ketones Negative (Negative) Urine Occult Blood 3+ H (Negative) Urine Nitrite Negative (Negative) Urine Bilirubin Negative (Negative) Urine Urobilinogen 0.2 (0.2-1.0) Ur Leukocyte Esterase 1+ H (Negative) Urine RBC 50-75 H (0-5) /hpf Urine WBC 75-100 H (0-5) /hpf Ur Squamous Epith Cells 0-5 (0-5) /hpf Urine Bacteria Moderate H (FEW) /hpf Urine Mucus Few (FEW) /hpf Meds: Medications Discontinued Medications Generic Name Dose Route Start Last Admin Trade Name Freq PRN Reason Stop Dose Admin Levofloxacin 750 mg 05/07/21 19:22 05/07/21 19:31 Levofloxacin 750 Mg Tab PO 05/07/21 19:23 750 mg ONETIME ONE Administration - Re-Assessments/Exams Free Text/Narrative Re-Assessment/Exam: 05/07/21 18:56 Patient presents to the ER for evaluation of his suprapubic catheter issue. Nursing staff was able to replace this without difficulty, she states that the urine does look grossly infected so a UA has been ordered. Will await for this results and get the patient discharged home. States he is feeling much better after the catheter was placed. 05/07/21 19:22 Patient's urinalysis does have quite a few white cells in it, nitrite negative only 1+ leukocyte Estrace. Likely this could be microbiota but due to the fact of having to reinsert a suprapubic catheter we will give him 1 dose of oral Levaquin while in the ER, and have them monitor his symptoms for the next few days. Departure - Departure Time of Disposition: 19:23 Disposition: Home, Self-Care 01 Condition: Good Clinical Impression: Encounter for Tang catheter replacement - Discharge Information *PRESCRIPTION DRUG MONITORING PROGRAM REVIEWED*: No *COPY OF PRESCRIPTION DRUG MONITORING REPORT IN PATIENT MICHELLE: No Instructions: Indwelling Urinary Catheter Care, Adult Referrals: Yimi Jimenes MD [Primary Care Provider] - Forms: ED Department Discharge Additional Instructions: You were evaluated in the ER today to have your Tang catheter/suprapubic replaced. You were given 1 dose of oral antibiotics in the ER, due to having to place the Tang catheter. A culture has been sent to make sure that urinalysis was just colonization from indwelling Tang catheter versus ongoing active UTI. You will be called and made notified in a few days if you should require further antibiotics. Please monitor your symptoms over the next few days, and please present back to a provider if you should develop any fevers/chills, or difficulties urinating. Do not hesitate to return to the ER at any time if symptoms change or worsen. Sepsis Event Note (ED) - Evaluation Sepsis Screening Result: No Definite Risk - Focused Exam Vital Signs: Vital Signs Temp Pulse Resp BP Pulse Ox 05/07/21 18:17 98.9 F 66 16 185/93 H 98 - My Orders Last 24 Hours: My Active Orders 05/07/21 18:40 CULTURE URINE [MREF] Stat 05/07/21 18:54 Insert Tang Catheter [Insert Urinary Catheter] [OM.PC] Stat - Assessment/Plan Last 24 Hours: My Active Orders 05/07/21 18:40 CULTURE URINE [MREF] Stat 05/07/21 18:54 Insert Tang Catheter [Insert Urinary Catheter] [OM.PC] Stat
[2021-05-07] MEDS ORDERED: Levofloxacin 750 MG Tab PO ONE (19:22)
== END 2021-05-07 19:49 | disposition home or self-care (01) ==
LOC: SUPCPDRO 18:17 → JD.ED 18:17
DX: T83.091A Other mechanical complication of indwelling urethral catheter, initial encounter (principal); E78.00 Pure hypercholesterolemia, unspecified; I12.9 Hypertensive chronic kidney disease with stage 1 through stage 4 chronic kidney disease, or unspecified chronic kidney disease; N18.9 Chronic kidney disease, unspecified; E66.9 Obesity, unspecified; K21.9 Gastro-esophageal reflux disease without esophagitis; N40.0 Benign prostatic hyperplasia without lower urinary tract symptoms; Z68.34 Body mass index [BMI] 34.0-34.9, adult; Z95.5 Presence of coronary angioplasty implant and graft; Z88.8 Allergy status to other drugs, medicaments and biological substances; Z79.82 Long term (current) use of aspirin; Z79.899 Other long term (current) drug therapy
CPT/HCPCS: 51702; 81001; 87086; 87088; 87186; 99283; A9270

== ENCOUNTER 2021-09-10 14:29 | Emergency (ER) | payer MEDICARE, BC ==
[2021-09-10 15:06] VITALS: BP 117/57; PULSE 68
[2021-09-10] MEDS: Sodium Chloride 0.9% 10 ML Syringe FLUSH PRN ×2 (16:10→16:29)
[2021-09-10] MEDS ORDERED: Sodium Chloride 0.9% 1,000 ML IV STA (16:18)
[2021-09-10] MEDS ORDERED: cefTRIAXone 2 GM in Sodium Chloride 0.9% 100 ML IV ONE (18:56)
== END 2021-09-10 21:05 | disposition home or self-care (01) ==
LOC: JD.ED 14:29
DX: T83.511A Infection and inflammatory reaction due to indwelling urethral catheter, initial encounter (principal); N39.0 Urinary tract infection, site not specified; R19.7 Diarrhea, unspecified; E78.00 Pure hypercholesterolemia, unspecified; E11.22 Type 2 diabetes mellitus with diabetic chronic kidney disease; I12.9 Hypertensive chronic kidney disease with stage 1 through stage 4 chronic kidney disease, or unspecified chronic kidney disease; N18.9 Chronic kidney disease, unspecified; E03.9 Hypothyroidism, unspecified; E66.9 Obesity, unspecified; Z68.36 Body mass index [BMI] 36.0-36.9, adult; Z88.8 Allergy status to other drugs, medicaments and biological substances; Z79.82 Long term (current) use of aspirin; Z79.899 Other long term (current) drug therapy
CPT/HCPCS: 36415; 51102; 80053; 81001; 85025; 86140; 87086; 87088; 87186; 96365; 99284; J0696; J3490; J7030

== ENCOUNTER 2024-06-10 14:51 | Inpatient (IN) | payer MEDICARE, BC ==
[2024-06-10 16:35] LABS: BASOPHILS PERCENT AUTO 0.2 % (0.0-1.0); EOSINOPHILS ABSOLUTE AUTO 0.1 K/mm3 (0.0-0.4); EOSINOPHILS PERCENT AUTO 1.4 % (0.0-6.0); HEMOGLOBIN 11.4 gm/dl (14.0-18.0); IMMATURE GRAN ABSOLUTE AUTO 0.02 K/mm3 (0.00-0.05); IMMATURE GRAN PERCENT AUTO 0.5 % (0.0-0.4); LYMPHOCYTES ABSOLUTE AUTO 1.1 K/mm3 (1.0-4.8); LYMPHOCYTES PERCENT AUTO 25.2 % (24.0-44.0); MEAN CORPUSCULAR HGB CONC 32.6 g/dl (32.0-36.0); MEAN CORPUSCULAR VOLUME 95.1 fl (83.0-99.0); MEAN PLATELET VOLUME 10.1 fl (9.4-12.4); MONOCYTES ABSOLUTE AUTO 0.7 K/mm3 (0.0-0.8); MONOCYTES PERCENT AUTO 15.1 % (0.0-8.0); NEUTROPHILS ABSOLUTE AUTO 2.6 K/mm3 (1.8-7.7); NEUTROPHILS PERCENT AUTO 57.6 % (41.0-71.0); PLATELET COUNT,PLT 146 K/mm3 (150-400); RED BLOOD CELL COUNT 3.68 M/mm3 (4.52-5.90); WHITE BLOOD CELL COUNT,WBC 4.44 K/mm3 (3.9-11.3)
[2024-06-10 17:06] LABS: A/G RATIO 0.9 (1-2); ALBUMIN 3.5 g/dl (3.4-5.0); ANION GAP 15.2 (5-15); BILIRUBIN TOTAL 0.7 mg/dL (0.2-1.0); BUN/CREATININE RATIO 8.8 (14-18); C-REACTIVE PROTEIN 6.62 mg/dL (<0.30); CALCIUM 8.8 mg/dL (8.5-10.1); CREATININE 1.6 mg/dL (0.7-1.3); EST CRCL DRUG DOSING (CG) 31.47 mL/min; POTASSIUM,K 3.2 mEq/L (3.5-5.1); PROTEIN TOTAL,TP 7.3 g/dl (6.4-8.2)
[2024-06-10 18:40] LABS: APPEARANCE,URINE CLEAR (Clear); BILIRUBIN,URINE NEGATIVE (Negative); COLOR,URINE YELLOW (Yellow); GLUCOSE,URINE 3+ (Negative); KETONES,URINE 1+ (Negative); LEUKOCYTE ESTERASE,URINE 1+ (Negative); NITRITE,URINE NEGATIVE (Negative); OCCULT BLOOD,URINE TRACE-LYSED (Negative); PROTEIN,URINE 1+ (Negative); UROBILINOGEN,URINE 0.2 (0.2-1.0)
[2024-06-10 18:48] LABS: WBC,URINE 20-30 /hpf (0-5)
[2024-06-10 18:49] LABS: BACTERIA,URINE MANY /hpf (FEW); MUCUS,URINE FEW /hpf (FEW); SQUAMOUS EPITHELIAL CELLS,UR 0-5 /hpf (0-5)
[2024-06-10] MEDS: Clopidogrel 75 MG Tab PO ONE (19:54)
[2024-06-10] MEDS: cefTRIAXone 1 GM Vial IVPUSH ONE (19:54)
[2024-06-10] MEDS ORDERED: Acetaminophen 325 MG Tab PO PRN (20:01)
[2024-06-10] MEDS ORDERED: hydrALAZINE 20 MG/ML SDV IVPUSH PRN (20:06)
[2024-06-10] MEDS ORDERED: 50% Dextrose in Water 50 ML Syringe IVPUSH PRN (20:10)
[2024-06-10 20:57] LABS: TSH 1.307 uIU/mL (0.358-3.74)
[2024-06-10] MEDS: Insulin Lispro 100 Unit/ML 3 ML KwikPen SUBCUT SCH (23:05)
[2024-06-10] MEDS: Bupivacaine 0.5% 10 ML SDV INJECT ONE (23:05)
[2024-06-10] MEDS: atorvaSTATin 40 MG Tab PO SCH (23:42)
[2024-06-11 04:43] LABS: BASOPHILS PERCENT AUTO 0.2 % (0.0-1.0); EOSINOPHILS ABSOLUTE AUTO 0.1 K/mm3 (0.0-0.4); EOSINOPHILS PERCENT AUTO 1.3 % (0.0-6.0); HEMATOCRIT 35.1 % (42.0-52.0); HEMOGLOBIN 11.1 gm/dl (14.0-18.0); IMMATURE GRAN ABSOLUTE AUTO 0.03 K/mm3 (0.00-0.05); IMMATURE GRAN PERCENT AUTO 0.6 % (0.0-0.4); LYMPHOCYTES ABSOLUTE AUTO 1.7 K/mm3 (1.0-4.8); LYMPHOCYTES PERCENT AUTO 31.4 % (24.0-44.0); MEAN CORPUSCULAR HEMOGLOBIN 30.4 pg (28.0-32.0); MEAN CORPUSCULAR HGB CONC 31.6 g/dl (32.0-36.0); MEAN CORPUSCULAR VOLUME 96.2 fl (83.0-99.0); MEAN PLATELET VOLUME 10.2 fl (9.4-12.4); MONOCYTES ABSOLUTE AUTO 0.9 K/mm3 (0.0-0.8); MONOCYTES PERCENT AUTO 17.3 % (0.0-8.0); NEUTROPHILS ABSOLUTE AUTO 2.7 K/mm3 (1.8-7.7); NEUTROPHILS PERCENT AUTO 49.2 % (41.0-71.0); PLATELET COUNT,PLT 135 K/mm3 (150-400); RED BLOOD CELL COUNT 3.65 M/mm3 (4.52-5.90); WHITE BLOOD CELL COUNT,WBC 5.38 K/mm3 (3.9-11.3)
[2024-06-11 05:18] LABS: A/G RATIO 0.9 (1-2); ALBUMIN 3.3 g/dl (3.4-5.0); ANION GAP 14.9 (5-15); BILIRUBIN TOTAL 0.6 mg/dL (0.2-1.0); BUN/CREATININE RATIO 9.3 (14-18); CALCIUM 8.7 mg/dL (8.5-10.1); CREATININE 1.4 mg/dL (0.7-1.3); EST CRCL DRUG DOSING (CG) 35.96 mL/min; POTASSIUM,K 2.9 mEq/L (3.5-5.1)
[2024-06-11 06:47] LABS: HEMOGLOBIN A1C 7.8 %
[2024-06-11] MEDS: Sodium Chloride 0.9% 10 ML Syringe FLUSH SCH (08:47)
[2024-06-11] MEDS: Gadobenate Dimeglumine 529 MG/ML 20 ML SDV IVPUSH ONE (08:47)
[2024-06-11] MEDS: Potassium Chloride 20 MEQ Tab.ER PO ONE ×2 (09:19→20:04)
[2024-06-11] MEDS: Enoxaparin 40 MG/0.4 ML Syringe SUBCUT SCH (09:19)
[2024-06-11] MEDS: Aspirin 81 MG Tab.EC PO SCH (09:19)
[2024-06-11] MEDS: Clopidogrel 75 MG Tab PO SCH (09:19)
[2024-06-11] MEDS: Dexamethasone 10 MG/ML SDV IV ONE (13:30)
[2024-06-11] MEDS: Pantoprazole 40 MG Tab.CR PO SCH (13:30)
[2024-06-11] MEDS ORDERED: Sodium Chloride 0.9% 1,000 ML IV SCH (15:15)
[2024-06-11] MEDS: Furosemide 20 MG Tab PO SCH (20:03)
[2024-06-11] MEDS: cefTRIAXone 1 GM Vial IVPUSH SCH (20:03)
[2024-06-11] MEDS: Dexamethasone 4 MG Tab PO SCH (20:04)
[2024-06-11] MEDS: Sodium Bicarbonate 650 MG Tab PO SCH (20:04)
[2024-06-12 04:47] LABS: HEMATOCRIT 36.7 % (42.0-52.0); IMMATURE GRAN ABSOLUTE AUTO 0.03 K/mm3 (0.00-0.05); IMMATURE GRAN PERCENT AUTO 0.6 % (0.0-0.4); LYMPHOCYTES ABSOLUTE AUTO 0.8 K/mm3 (1.0-4.8); LYMPHOCYTES PERCENT AUTO 17.1 % (24.0-44.0); MEAN CORPUSCULAR HEMOGLOBIN 30.8 pg (28.0-32.0); MEAN CORPUSCULAR HGB CONC 32.7 g/dl (32.0-36.0); MEAN CORPUSCULAR VOLUME 94.1 fl (83.0-99.0); MEAN PLATELET VOLUME 9.7 fl (9.4-12.4); MONOCYTES ABSOLUTE AUTO 0.3 K/mm3 (0.0-0.8); MONOCYTES PERCENT AUTO 6.8 % (0.0-8.0); NEUTROPHILS ABSOLUTE AUTO 3.5 K/mm3 (1.8-7.7); NEUTROPHILS PERCENT AUTO 75.5 % (41.0-71.0); PLATELET COUNT,PLT 150 K/mm3 (150-400); WHITE BLOOD CELL COUNT,WBC 4.69 K/mm3 (3.9-11.3)
[2024-06-12 05:14] LABS: A/G RATIO 0.9 (1-2); ALBUMIN 3.5 g/dl (3.4-5.0); ANION GAP 22.1 (5-15); BILIRUBIN TOTAL 0.7 mg/dL (0.2-1.0); BUN/CREATININE RATIO 9.3 (14-18); CREATININE 1.5 mg/dL (0.7-1.3); EST CRCL DRUG DOSING (CG) 33.57 mL/min; POTASSIUM,K 4.1 mEq/L (3.5-5.1); PROTEIN TOTAL,TP 7.6 g/dl (6.4-8.2)
[2024-06-12] MEDS: Sodium Bicarbonate 650 MG Tab PO SCH (08:12)
[2024-06-12] MEDS: Levothyroxine 50 MCG Tab PO SCH (08:12)
[2024-06-12] MEDS: Polyethylene Glycol 3350 Powder 17 GM Packet PO SCH (13:53)
[2024-06-12] MEDS: Sodium Chloride 0.9% 500 ML IV ONE (15:52)
[2024-06-12] MEDS: Iopamidol 612 MG/ML 30 ML SDV IVPUSH ONE (17:55)
[2024-06-12] MEDS: Iopamidol 612 MG/ML 100 ML Bottle IVPUSH ONE (17:55)
[2024-06-12] MEDS: Furosemide 40 MG Tab PO SCH (20:23)
[2024-06-13] MEDS: Ondansetron 4 MG/2 ML SDV IVPUSH PRN (08:18)
[2024-06-13 09:10] LABS: ANION GAP 22.3 (5-15); BUN/CREATININE RATIO 14.1 (14-18); CREATININE 1.7 mg/dL (0.7-1.3); EST CRCL DRUG DOSING (CG) 29.62 mL/min; POTASSIUM,K 4.3 mEq/L (3.5-5.1)
[2024-06-14 05:01] LABS: ANION GAP 13.2 (5-15); BUN/CREATININE RATIO 17.3 (14-18); CALCIUM 8.7 mg/dL (8.5-10.1); CREATININE 1.5 mg/dL (0.7-1.3); EST CRCL DRUG DOSING (CG) 33.57 mL/min; POTASSIUM,K 4.2 mEq/L (3.5-5.1)
[2024-06-14] MEDS ORDERED: Dexamethasone 4 MG/ML SDV IVPUSH SCH (07:45)
[2024-06-14] MEDS: Dexamethasone 4 MG Tab PO SCH (08:25)
[2024-06-14] MEDS: Insulin Lispro 100 Unit/ML 3 ML KwikPen SUBCUT SCH (08:25)
[2024-06-14] MEDS: Insulin Glargine,Human Rec. Analog 100 Units/ML 3 ML Pen SUBCUT SCH (08:26)
[2024-06-14] MEDS ORDERED: Insulin Glargine,Human Rec. Analog 100 Units/ML 3 ML Pen SUBCUT SCH (09:00)
[2024-06-14] MEDS: Metoclopramide 10 MG/2 ML SDV IVPUSH ONE (15:32)
[2024-06-15 06:16] LABS: ANION GAP 13.8 (5-15); BUN/CREATININE RATIO 19.4 (14-18); CALCIUM 8.1 mg/dL (8.5-10.1); CREATININE 1.6 mg/dL (0.7-1.3); EST CRCL DRUG DOSING (CG) 31.47 mL/min; POTASSIUM,K 3.8 mEq/L (3.5-5.1)
[2024-06-15] MEDS: Metoclopramide 10 MG/2 ML SDV IVPUSH PRN (08:55)
[2024-06-16 06:04] LABS: ANION GAP 9.7 (5-15); CALCIUM 8.3 mg/dL (8.5-10.1); CREATININE 1.5 mg/dL (0.7-1.3); EST CRCL DRUG DOSING (CG) 33.57 mL/min; POTASSIUM,K 3.7 mEq/L (3.5-5.1)
[2024-06-16] MEDS: Insulin Glargine,Human Rec. Analog 100 Units/ML 3 ML Pen SUBCUT SCH (09:29)
[2024-06-19] MEDS: Gabapentin 100 MG Cap PO SCH (09:05)
[2024-06-19] MEDS: Insulin Glargine,Human Rec. Analog 100 Units/ML 3 ML Pen SUBCUT SCH (09:06)
[2024-06-19] MEDS: Insulin Glargine,Human Rec. Analog 100 Units/ML 3 ML Pen SUBCUT STA (16:51)
[2024-06-19] MEDS: Metoclopramide 10 MG/2 ML SDV IVPUSH PRN (16:56)
[2024-06-21] MEDS ORDERED: Metoclopramide 5 MG Tab PO PRN (09:35)
[2024-06-21] MEDS ORDERED: Ondansetron 4 MG Tab.DIS PO PRN (09:36)
[2024-06-21] MEDS: Insulin Glargine,Human Rec. Analog 100 Units/ML 3 ML Pen SUBCUT SCH (20:45)
[2024-06-24] MEDS ORDERED: Polyethylene Glycol 3350 Powder 17 GM Packet PO PRN (09:00)
[2024-06-24] MEDS: Furosemide 40 MG Tab PO SCH (21:53)
[2024-06-25] MEDS: Nystatin Topical Powder 15 GM Bottle TOP PRN (05:41)
[2024-06-25 20:26] VITALS: BP 117/83; PULSE 68
== END 2024-06-26 10:36 | DRG 54 ==
LOC: JD.ED 14:51 → JD.MS 20:01
PROVIDERS: ADMIT Family Medicine; ATTEND Family Medicine
DX: D49.6 Neoplasm of unspecified behavior of brain (principal); R53.1 Weakness; G93.6 Cerebral edema; N18.9 Chronic kidney disease, unspecified; N17.9 Acute kidney failure, unspecified; N30.01 Acute cystitis with hematuria; G93.89 Other specified disorders of brain; G31.9 Degenerative disease of nervous system, unspecified; E78.00 Pure hypercholesterolemia, unspecified; Z79.84 Long term (current) use of oral hypoglycemic drugs; E03.9 Hypothyroidism, unspecified; Z79.890 Hormone replacement therapy; N40.0 Benign prostatic hyperplasia without lower urinary tract symptoms; E11.22 Type 2 diabetes mellitus with diabetic chronic kidney disease; I12.9 Hypertensive chronic kidney disease with stage 1 through stage 4 chronic kidney disease, or unspecified chronic kidney disease; K21.9 Gastro-esophageal reflux disease without esophagitis; H91.90 Unspecified hearing loss, unspecified ear; H54.7 Unspecified visual loss; M19.90 Unspecified osteoarthritis, unspecified site; E66.9 Obesity, unspecified; Z96.659 Presence of unspecified artificial knee joint; N18.32 Chronic kidney disease, stage 3b; E11.622 Type 2 diabetes mellitus with other skin ulcer; B95.1 Streptococcus, group B, as the cause of diseases classified elsewhere; B96.1 Klebsiella pneumoniae [K. pneumoniae] as the cause of diseases classified elsewhere; R06.6 Hiccough; L89.152 Pressure ulcer of sacral region, stage 2; E11.65 Type 2 diabetes mellitus with hyperglycemia; Z90.79 Acquired absence of other genital organ(s); Z98.49 Cataract extraction status, unspecified eye; Z79.4 Long term (current) use of insulin; Z88.8 Allergy status to other drugs, medicaments and biological substances; Z79.82 Long term (current) use of aspirin; Z79.1 Long term (current) use of non-steroidal anti-inflammatories (NSAID); Z79.899 Other long term (current) drug therapy; Z93.59 Other cystostomy status; Z98.890 Other specified postprocedural states; Z68.31 Body mass index [BMI] 31.0-31.9, adult
CPT/HCPCS: 36415; 70450; 72125; 73030; 80053; 81001; 82607; 82947; 83735; 83880; 84443; 85025; 86140; 87086; 87088; 87186; 87428; 93005; 96374; 99285; A9270; J0696; 70551; 70553; 70553-26; 71260; 71260-26; 74177; 74177-26; 80048; 80061; 83036; 87641; 93010; 93306; 97110-GP; 97112-GP; 97116-GP; 97161-GP; 97530-GP; 99223; 99231; 99232; 99233; 99239; A9577; J1100; J1650; J1815; J1815-GY; J2405; J2765; J7030; J8540; Q9967; U0002